=== PATIENT | male | born 1935 | race Caucasian/White ===

== ENCOUNTER 2017-03-01 14:01 | Inpatient (IN) | payer MEDICARE ==
[2017-03-01] MEDS ORDERED: Acetaminophen TAB* 325 MG PO ONE (15:41)
[2017-03-01 16:01] LABS: Hematocrit 33 % (42-52); Hemoglobin 10.8 g/dl (14.0-18.0); Mean Corpuscular HGB Conc 32 g/dl (31-36); Mean Corpuscular Hemoglobin 33 pg (27-31); Mean Corpuscular Volume 101 fL (80-94); Mean Platelet Volume 9 um3 (7.4-10.4); Red Blood Count 3.31 10^6/ul (4.0-5.4); Red Cell Distribution Width 16 % (10.5-15); White Blood Count 18.8 10^3/ul (3.5-10.8)
[2017-03-01 16:03] LABS: Albumin 3.1 g/dL (3.2-5.2); BUN/Creatinine Ratio 21.3 (8-20); Calcium 9.1 mg/dL (8.6-10.3); EGFR African American 24.6 (>60); EGFR Non-African American 19.1 (>60); Globulin 3.5 g/dL (2-4); Potassium 4.4 mmol/L (3.5-5.0); Total Bilirubin 0.9 mg/dL (0.2-1.0); Total Protein 6.6 g/dL (6.4-8.9)
[2017-03-01 16:08] LABS: Troponin I 4.52 ng/mL (<0.04)
[2017-03-01] MEDS ORDERED: cefTRIAXone VIAL(*) 1,000 MG in NS 0.9% 50 ML* 50 ML IVPB ONE (16:12)
[2017-03-01] MEDS ORDERED: Azithromycin IV(*) 500 MG in NS 0.9% 250 ML* 250 ML IVPB ONE (16:12)
--- NOTE | 2017-03-01 16:15 | RAD ---
INDICATION: Short of breath. Fever. COMPARISON: January 19, 2016 TECHNIQUE: An AP portable view obtained at 1552 hours is submitted. FINDINGS: Bones/Soft Tissues: There are no acute bony findings. Cardiomediastinal: The cardiac silhouette is enlarged with a mild interval increase in size. Lungs: Diffuse interstitial change consistent with interstitial edema. No focal consolidation.. Pleura: No significant effusions. Other: None IMPRESSION: MODERATE INTERSTITIAL CONGESTION, UNCHANGED.
--- NOTE | 2017-03-01 16:18 | ED ---
Darci Aparicio Benjamin, scribed for Georgette Carr MD on 03/01/17 at 1610 . HPI Febrile Illness - HPI Summary HPI Summary: 81yo male Pt c/o fever, chills, cough, SOB and weakness for 2 days. Pt went to his PCP Dr. Harrell office earlier today for his sickness and was subsequently sent to ED. Pt reports hx of CHF with chronic leg swelling, Afib with anticoagulation therapy, and couple of TIAs. No hx of PE. No urinary symptoms. No CP or SOB. Pt is not on O2 at home. - History of Current Complaint Chief Complaint: EDFever Time Seen by Provider: 03/01/17 15:11 Hx Obtained From: Patient Onset/Duration: Started Days Ago, Still Present Timing: Constant Initial Severity: Mild Current Severity: Mild Pain Intensity: 0 Pain Scale Used: 0-10 Numeric Associated Signs and Symptoms: Cough, Leg Swelling, SOB - Allergy/Home Medications Allergies/Adverse Reactions: Allergies Allergy/AdvReac Type Severity Reaction Status Date / Time Methotrexate AdvReac Intermediate Pneumonia Verified 08/06/13 13:10 Like Symptoms Codeine AdvReac Unknown Itching Verified 08/06/13 13:10 Home Medications: Home Medications Allopurinol TAB* [Zyloprim 100 MG TAB*] 200 mg PO DAILY 03/01/17 [History Confirmed 03/01/17] Metoprolol Tartrate TAB* [Lopressor TAB*] 12.5 tab PO BID 03/01/17 [History Confirmed 03/01/17] Omeprazole CAP* [Prilosec CAP* 20 MG] 20 mg PO DAILY 03/01/17 [History Confirmed 03/01/17] Polysaccharide Iron Complex [Ferrex 150] 150 mg PO BID 03/01/17 [History Confirmed 03/01/17] predniSONE TAB* [Deltasone TAB*] 4 mg PO DAILY 03/01/17 [History Confirmed 03/01] predniSONE TAB* [Deltasone TAB*] 10 mg PO DAILY 03/01/17 [History Confirmed 09/16] PMH/Surg Hx/FS Hx/Imm Hx Endocrine/Hematology History: Reports: Hx Thyroid Disease Cardiovascular History: Reports: Hx Coronary Artery Disease, Hx Hypercholesterolemia, Hx Hypertension, Other Cardiovascular Problems/Disorders - temporal arteritis Respiratory History: Reports: Hx Sleep Apnea - current CPAP user, compliant GI History: Reports: Hx Gastroesophageal Reflux Disease, Other GI Disorders - bowel resection, appendectomy History: Reports: Hx Benign Prostatic Hyperplasia Musculoskeletal History: Reports: Hx Arthritis - osteo, Hx Osteoporosis, Other Musculoskeletal History - bilateral hip replacement Sensory History: Reports: Hx Cataracts - bilateral, Hx Vision Problem - s/p TIA (left) vision loss, dbl vision Opthamlomology History: Reports: Hx Cataracts - bilateral, Hx Vision Problem - s /p TIA (left) vision loss, dbl vision Neurological History: Reports: Hx Transient Ischemic Attacks (TIA) - Surgical History Surgery Procedure, Year, and Place: 06/1998 [facility] [place]- (right) cataract. 03/2000 [facility] [place] - (left) cataract. (left) knee surgery. 07/2003 partial bowel resection. appendectomy. bilateral carotid endarterectomy. 12/2008 (left) hip arthroplasty. 11/2009 (right) hip ORIF & replacement Infectious Disease History: No Infectious Disease History: Denies: Traveled Outside the [place] in Last 30 Days - Social History Alcohol Use: None Substance Use Type: Reports: None Smoking Status (MU): Former Smoker Review of Systems Positive: Fever Eyes: Negative ENT: Negative Cardiovascular: Negative Positive: Shortness Of Breath, Cough Gastrointestinal: Negative Genitourinary: Negative Positive: Edema - leg, chronic Skin: Negative Neurological: Negative Psychological: Normal All Other Systems Reviewed And Are Negative: Yes Physical Exam Triage Information Reviewed: Yes Vital Signs On Initial Exam: Initial Vitals Temp Pulse Resp BP Pulse Ox 99.5 F 72 20 156/53 94 03/01/17 14:03/01/17 14:03/01/17 14:03/01/17 14:03/01/17 14:06 Vital Signs Reviewed: Yes Appearance: Positive: Well-Appearing, No Pain Distress, Well-Nourished Skin: Positive: Warm, Skin Color Reflects Adequate Perfusion, Dry Head/Face: Positive: Normal Head/Face Inspection Eyes: Positive: EOMI, VASQUEZ ENT: Positive: Normal ENT inspection Neck: Positive: Supple, Nontender Respiratory/Lung Sounds: Positive: Clear to Auscultation, Breath Sounds Present , Decreased Breath Sounds Cardiovascular: Positive: RRR Abdomen Description: Positive: Nontender, No Organomegaly, Soft Bowel Sounds: Positive: Present Musculoskeletal: Positive: Strength/ROM Intact, Edema Left - up to thigh, Edema Right - up to thigh Neurological: Positive: Sensory/Motor Intact, Alert, Oriented to Person Place, Time, CN Intact II-III Psychiatric: Positive: Affect/Mood Appropriate - Krystle Coma Scale Coma Scale Total: 15 Diagnostics - Vital Signs Vital Signs Temp Pulse Resp BP Pulse Ox 03/01/17 15:04 101.2 F 75 16 129/56 95 03/01/17 15:00 85 94 03/01/17 14:58 83 94 03/01/17 14:06 99.5 F 72 20 156/53 94 - Laboratory Lab Results: Lab Results 03/01/17 03/01/17 Range/Units 15:30 15:30 Sodium 134 (133-145) mmol/L Potassium 4.4 (3.5-5.0) mmol/L Chloride 103 (101-111) mmol/L Carbon Dioxide 23 (22-32) mmol/L Anion Gap 8 (2-11) mmol/L BUN 67 H (6-24) mg/dL Creatinine 3.14 H (0.67-1.17) mg/dL Est GFR ( Amer) 24.6 (>60) Est GFR (Non-Af Amer) 19.1 (>60) BUN/Creatinine Ratio 21.3 H (8-20) Glucose 146 H (70-100) mg/dL Lactic Acid 1.2 (0.5-2.0) mmol/L Calcium 9.1 (8.6-10.3) mg/dL Total Bilirubin 0.90 (0.2-1.0) mg/dL AST 76 H (13-39) U/L ALT 45 (7-52) U/L Alkaline Phosphatase 149 H (34-104) U/L Troponin I 4.52 H* (<0.04) ng/mL Total Protein 6.6 (6.4-8.9) g/dL Albumin 3.1 L (3.2-5.2) g/dL Globulin 3.5 (2-4) g/dL Albumin/Globulin Ratio 0.9 L (1-3) Result Diagrams: 03/01/17 15:30 03/01/17 15:30 Lab Statement: Any lab studies that have been ordered have been reviewed, and results considered in the medical decision making process. - EKG 1618. Cardiac Rate: Tachycardia - 113bpm EKG Rhythm: Atrial Fibrillation Ectopy: PVCs EKG Interpretation: poor R wave progressions, EKG Comparison: No Significant Change - 02/17/17. Course/Dx - Course Course Of Treatment: Reviewed pt's medications list and allergies. High blood pressure noted. Discussed with Dr. Lopez ([facility]) at 16:11 for a consult/ admission. pt without complain of cp but with elevated trop - Diagnoses Provider Diagnoses: Heart attack, Fever Discharge - Discharge Plan Condition: Stable Disposition: ADMITTED TO [facility] Referrals: Lit Saldana MD [Primary Care Provider] - The documentation as recorded by the Darci raines Benjamin accurately reflects the service I personally performed and the decisions made by me, Georgette Carr MD.
[2017-03-01 16:22] LABS: Urine Bacteria Absent (Absent); Urine Bilirubin Negative (Negative); Urine Glucose Negative (Negative); Urine Nitrite Negative (Negative)
[2017-03-01] MEDS ORDERED: NS 0.9% 50 ML* 50 ML ONE (16:25)
[2017-03-01] MEDS ORDERED: cefTRIAXone(*) 1 GM ADVAN ONE (16:29)
[2017-03-01] MEDS ORDERED: Ondansetron INJ* 2 MG/ML VIAL IV PRN (16:54)
[2017-03-01] MEDS ORDERED: Heparin DRIP 25,000 UNITS(*) 25,000 UNITS/500 ML BAG IVPB SCH (17:00)
[2017-03-01] MEDS ORDERED: Heparin VIAL(*) 5000 UNITS/ML VIAL (FIVE THOUSAND) IV SCH (17:00)
[2017-03-01] MEDS: cefTRIAXone VIAL(*) 1,000 MG in NS 0.9% 50 ML* 50 ML IVPB SCH (17:10)
[2017-03-01] MEDS ORDERED: NS 0.9% 1000 ML* 1,000 ML IV ONE (17:19)
[2017-03-01 17:43] LABS: Troponin I 5.09 ng/mL (<0.04)
[2017-03-01] MEDS: Sevelamer TAB* 800 MG PO SCH (18:20)
[2017-03-01 18:43] LABS: C Reactive Protein 227.24 mg/L (< 5.00)
[2017-03-01 20:08] LABS: Erythrocyte Sed Rate 113 mm/Hr (0-40)
[2017-03-01] MEDS: Hydrocortisone INJ* 100 MG VIAL IV SCH (20:16)
[2017-03-01] MEDS: NS 0.9% 1000 ML* 1,000 ML IV SCH (20:17)
[2017-03-01] MEDS ORDERED: Metoprolol Tartrate TAB* 25 MG PO SCH (21:00)
[2017-03-02] MEDS ORDERED: Nystatin TOP POWDER* 15 GM BTL TOPICAL SCH (01:30)
--- NOTE | 2017-03-02 02:03 | HP ---
CC: Dr. Saldana* HISTORY AND PHYSICAL: DATE OF ADMISSION: 03/01/17 PRIMARY ARE PROVIDER: Dr. Saldana. ATTENDING PHYSICIAN WHILE IN THE HOSPITAL: Deanne Lopez DO * (report dictated by Blake Campos NP) CHIEF COMPLAINT: 1. Cough. 2. Shortness of breath. 3. Fever. 4. Weakness. HISTORY OF PRESENT ILLNESS: Mr. Pederson is an 81-year-old male patient who last night says he slipped and slid out the edge of his bed, was on the floor for about 3 in the morning until 7 in the morning. He was able to call the ambulance and they came over. They suggested he come to the ER, but he refused and he was assisted back into his bed. He throughout the day was feeling weak. He was having chills. He just was not feeling good. He called his primary. He got an appointment with Dr. Saldana. Dr. Saldana saw him and felt that he needed to be evaluated in the ER because it was apparently noted he was febrile. He denies having any chest pain. He says he has been more short of breath. He has been coughing, it has been a dry cough. He denies any chest pain. No nausea, vomiting or abdominal discomfort or any dysuria. Interesting enough, when he came in, it was noted that he had a white count of 18,000 and a fever of 101.2. His troponin was elevated. He appeared to be in new-onset AFib and the hospitalist service was asked to evaluate for admission because there was concern for sepsis. Again, he denied having any ear discharge. There is no rhinorrhea. He does admit to having a cough, some shortness of breath, but no chest pain. PAST MEDICAL HISTORY: Significant for: 1. Hypothyroidism. 2. Hypertension. 3. Temporal arteritis. 4. SRAVAN. 5. Arthritis. 6. Hyperlipidemia. 7. TIA x2. 8. CAD. 9. Second-degree AV block. 10. CKD. 11. Peripheral vascular disease. PAST SURGICAL HISTORY: 1. He had had a right and left total hip replacement. 2. Carotid endarterectomy. 3. Appendectomy. 4. Bowel resection. 5. Left knee surgery. HOME MEDICATIONS: Include: 1. He is on prednisone 9 mg p.o. daily. 2. Norvasc 5 mg daily. 3. Flomax 0.4 mg daily. 4. Zocor 40 mg daily. 5. Renvela 1600 mg p.o. t.i.d. with meals. 6. Polysaccharide iron complex 150 mg p.o. b.i.d. 7. Prilosec 20 mg a day. 8. [place] 3 fatty acids 2000 mg p.o. daily. 9. Multivitamin 1 tablet daily. 10. Lopressor 12.5 mg p.o. b.i.d. 11. Lisinopril one tab a day. 12. Synthroid 50 mcg daily. 13. Lasix 40 mg a day. 14. Aspirin 81 mg a day. 15. Allopurinol 200 mg p.o. daily. 16. Tekturna 150 mg p.o. daily. ALLERGIES TO MEDICATIONS: Include METHOTREXATE and CODEINE. FAMILY HISTORY: His mother had diabetes. Father had a stroke. SOCIAL HISTORY: He is a former smoker, he quit in 1992. He does not drink. His surrogate decision maker is his daughter, Ashley. REVIEW OF SYSTEMS: There is a documented fever. He denied any significant weight change. There was no double vision, no ear discharge. He denied having any rhinorrhea. There was no sore throat. No thyroid enlargement. Denied having any chest pain. There was no orthopnea. There is shortness of breath with dyspnea on exertion. There is no abdominal pain. There is no nausea. There is no vomiting. There is no dysuria. There was no frequency. No seizure. No loss of consciousness, no pruritus and no skin ulcerations. Review of 14 systems completed, all others negative. PHYSICAL EXAMINATION GENERAL: At this time, Mr. Pederson is an 81-year-old male patient. He is sitting on the ER stretcher. He does not appear to be in any acute distress. He is awake and he is alert. VITAL SIGNS: Blood pressure of 112/53, pulse 69, respirations 22, O2 sat 96%, temperature of 101.2. HEENT: Head is atraumatic, normocephalic. Eyes: EOMs are intact. Sclerae anicteric. Throat: Oral mucosa appears to be dry. No oropharyngeal erythema. NECK: Supple. LUNGS: He did have crackles on the right side. He had equal diaphragmatic expansion. HEART: Sounds S1, S2. Irregularly irregular rate. No murmurs, rubs, or gallops. ABDOMEN: Soft. It was flat. Nontender. Bowel sounds were present. EXTREMITIES: Pulses were 2+ throughout. He had +4 pitting edema bilaterally. He had 5/5 strength. NEUROLOGIC: He is awake. He is alert. He is oriented x3. His tongue is midline. Chicken Cleaner were equal. He had no gross focal deficits. His skin was intact. He did have some abrasions to his knees. LABORATORY DATA/DIAGNOSTIC STUDIES: Today revealed WBC of 18.8, RBC of 3.31, hemoglobin of 10.8, hematocrit of 33, platelet count of 342, INR 1.29, PTT of 26.3. Sodium 134, potassium 4.4, chloride 103, bicarb 23. BUN 67, creatinine 3.14, glucose 146, lactic 1.2, calcium 9.1, total bili 0.9, AST 76, ALT 45, alk phos 149. His troponin was 4.52. He did have an albumin of 3.1. Urine was 1+ protein and present squamous epithelial cells. He did have an EKG obtained today, which revealed an atrial fibrillation with multiple PVCs in couplets. He had no ST elevations at this point noted and no T -wave inversion. I reviewed to his previous EKG. He has had the couplets and the PVCs in the past, but he was not in AFib previously. He appeared to be in a sinus rhythm. The AFib does appear to be new. He did have a chest x-ray obtained today, which showed in my opinion concern for possible pneumonia particularly on the right side. Radiology read as moderate interstitial congestion, unchanged. Old medical records were reviewed. ASSESSMENT AND PLAN: Mr. Pederson is an 81-year-old male patient coming into the ER today with complaints of weakness, fall, not feeling well, cough, shortness of breath. He will be admitted under inpatient status for: 1. Sepsis: The source of this sepsis is probably from his lungs. I am going to put him on ceftriaxone, azithromycin. I am going to go ahead and give him normal saline at 125 an hour. I will bolus him 1 L. We will try to get Legionella antigen and Strep pneumo antigen, we will go head and place a Angeles and monitor his urine output closely and I will place him in the ICU. 2. Elevated troponin: This is markedly elevated in the setting of sepsis. It is most likely demand ischemia. His EKG is changed with atrial fibrillation, which is probably secondary to the infection as well and sepsis and demand. My plan is to go ahead and check an echo, cycle his troponins, place him on a heparin drip and monitor him. He is not having any chest pain. Currently, he does take an aspirin and he is on a beta-veronique and a statin. We will continue these medications. He is actively infected right now and is septic, so he would not be a candidate for cath. I did order an echo. If they continue to elevate, I will consider Cardiology consult. 3. Hypothyroidism: Continue Synthroid. 4. Atrial fibrillation: This appears to be new on the patient. I am going to put him on a heparin drip. It is probably related to the acute illness, but he will probably need to be on anticoagulation as his CHADS-VASc score is high. 5. Hypertension: Hold his medications such as beta-veronique. 6. Temporal arteritis: I am going to put him on stress dosed steroids as he was on prednisone. 7. Obstructive sleep apnea: Did order a CPAP. 8. Arthritis: Continue p.r.n. Tylenol. 9. Hyperlipidemia: Continue statin therapy. 10. History of transient ischemic attack: Continue with secondary prevention. 11. History of coronary artery disease: Continue him on an aspirin, statin, beta- veronique. 12. History of second-degree AV block: He has been on telemetry, we will monitor. 13. Chronic kidney disease with acute renal failure. This is probably related to prerenal, but he may have a component of acute tubular necrosis secondary to the sepsis. I will go ahead and hydrate him and send off a FENa. In addition to this, we will go ahead and hydrate him and place a Angeles and monitor his urine output. 14. Peripheral vascular disease: Continue his aspirin and statin. 15. DVT prophylaxis: He will be placed on heparin drip. 16. Code status: He is a full code. 17. Fluids, electrolytes, and nutrition: He can have a heart healthy diet. TIME SPENT: Time spent on the admission was approximately 60 minutes. Greater than half the time was spent [id number] with the patient obtaining my history and physical; other half the time spent going over plan of care with the patient and implementing plan of care. I did discuss the plan of care with my attending, Dr. Lopez, she is in agreement. BLAKE CAMPOS, TRAINING AND DEVELOPMENT OFFICER [id number]/[facility] #: [id number] [facility]
[2017-03-02] MEDS ORDERED: Hydrocortisone INJ* 100 MG VIAL IV SCH (04:00)
[2017-03-02] MEDS: Nystatin TOP POWDER* 15 GM BTL TOPICAL SCH ×3 (04:20→20:12)
[2017-03-02] MEDS: NS 0.9% 1000 ML* 1,000 ML IV SCH (04:35)
[2017-03-02] MEDS: Levothyroxine TAB* 50 MCG TAB PO SCH (05:45)
[2017-03-02 06:00] LABS: Hematocrit 31 % (42-52); Hemoglobin 10.1 g/dl (14.0-18.0); Mean Corpuscular HGB Conc 33 g/dl (31-36); Mean Corpuscular Hemoglobin 33 pg (27-31); Mean Corpuscular Volume 101 fL (80-94); Mean Platelet Volume 8 um3 (7.4-10.4); Red Blood Count 3.08 10^6/ul (4.0-5.4); Red Cell Distribution Width 16 % (10.5-15)
[2017-03-02 06:14] LABS: BUN/Creatinine Ratio 22.3 (8-20); Calcium 8.5 mg/dL (8.6-10.3); EGFR African American 25.9 (>60); EGFR Non-African American 20.1 (>60); Potassium 4.3 mmol/L (3.5-5.0)
[2017-03-02] MEDS: Hydrocortisone INJ* 100 MG VIAL IV SCH (06:20)
[2017-03-02] MEDS: Tamsulosin CAP* 0.4 MG PO SCH (08:11)
[2017-03-02] MEDS: Atorvastatin* 20 MG TAB PO SCH (08:11)
[2017-03-02] MEDS: Aspirin EC Low Dose* 81 MG TAB.EC PO SCH (08:11)
[2017-03-02] MEDS: Omeprazole CAP* 20 MG PO SCH (08:11)
[2017-03-02] MEDS: Sevelamer TAB* 800 MG PO SCH (08:16)
[2017-03-02] MEDS ORDERED: predniSONE TAB* 10 MG PO ONE (09:25)
--- NOTE | 2017-03-02 09:55 | PN ---
Subjective Date of Service: 03/02/17 Interval History: Pt feels well, sitting in a chair, reading an newspaper, off 02. stated that he got ill suddenly yesterday with SOB and fever . Was too weak to get up from bed and slid to the floor, than called 911 and insisted to be brought to his PCP's office. there he was noted to have Tepm of 102 and was directed to ED. Last night HR noted to be in the 30's and beta blockers were discontinued. He lives alone, but his son in moving to [facility] house to help him today. ambulates with a cane Objective Active Medications: Acetaminophen (Tylenol Tab*) 650 mg PO Q4H PRN PRN Reason: FEVER/PAIN Aspirin (Aspirin Ec Low Dose*) 81 mg PO DAILY [facility] Last Admin: 03/02/17 08:11 Dose: 81 mg Atorvastatin Calcium (Lipitor*) 20 mg PO DAILY [facility] Last Admin: 03/02/17 08:11 Dose: 20 mg Ceftriaxone Sodium 1,000 mg/ (Sodium Chloride) 50 mls @ 200 mls/hr IVPB Q24H [facility] Last Admin: 03/01/17 17:10 Dose: Not Given Azithromycin 500 mg/ Sodium (Chloride) 250 mls @ 250 mls/hr IVPB Q24H [facility] Levothyroxine Sodium (Synthroid Tab*) 50 mcg PO DAILY@0600 [facility] Last Admin: 03/02/17 05:45 Dose: 50 mcg Nystatin (Nystatin Top Powder*) 1 applic TOPICAL Q8HR [facility] Last Admin: 03/02/17 04:20 Dose: 1 powder Omeprazole (Prilosec Cap*) 20 mg PO DAILY@0730 [facility] Last Admin: 03/02/17 08:11 Dose: 20 mg Ondansetron HCl (Zofran Inj*) 4 mg IV Q6H PRN PRN Reason: NAUSEA Prednisone (Deltasone Tab*) 40 mg PO DAILY [facility] Tamsulosin HCl (Flomax Cap*) 0.4 mg PO DAILY [facility] Last Admin: 03/02/17 08:11 Dose: 0.4 mg Vital Signs 03/01/17 03/01/17 03/01/17 17:00 18:00 18:26 Temperature Pulse Rate Respiratory 22 26 23 Rate Blood Pressure 99/52 (mmHg) O2 Sat by Pulse Oximetry 08/0203/01/17 03/01/17 18:32 18:45 19:00 Temperature 98.2 F Pulse Rate 64 66 54 Respiratory 15 24 22 Rate Blood Pressure 110/51 104/52 109/51 (mmHg) O2 Sat by Pulse 95 94 95 Oximetry 03/01/17 03/01/17 03/01/17 19:30 19:34 19:45 Temperature 98.4 F Pulse Rate 51 53 Respiratory 23 24 Rate Blood Pressure 99/76 (mmHg) O2 Sat by Pulse 97 95 Oximetry 03/01/17 03/01/17 03/01/17 20:00 20:30 20:54 Temperature 98.2 F Pulse Rate 47 46 Respiratory 24 21 Rate Blood Pressure 127/35 128/39 (mmHg) O2 Sat by Pulse 93 93 Oximetry 03/01/17 03/01/17 03/01/17 21:00 21:30 22:00 Temperature Pulse Rate 43 48 44 Respiratory 22 24 25 Rate Blood Pressure 119/44 114/49 113/40 (mmHg) O2 Sat by Pulse 95 95 96 Oximetry 03/01/17 03/01/17 03/01/17 22:30 23:00 23:11 Temperature Pulse Rate 43 43 43 Respiratory 28 26 24 Rate Blood Pressure 93/36 101/35 104/40 (mmHg) O2 Sat by Pulse 93 94 91 Oximetry 03/01/17 03/01/17 03/02/17 23:14 23:30 00:00 Temperature 98.2 F Pulse Rate 42 41 42 Respiratory 25 24 26 Rate Blood Pressure 105/35 (mmHg) O2 Sat by Pulse 95 96 96 Oximetry 03/02/17 03/02/17 03/02/17 00:01 00:30 01:00 Temperature Pulse Rate 44 47 41 Respiratory 25 16 24 Rate Blood Pressure 102/37 152/61 124/45 (mmHg) O2 Sat by Pulse 96 98 96 Oximetry 03/02/17 03/02/17 03/02/17 01:30 01:43 02:00 Temperature Pulse Rate 42 41 Respiratory 26 24 Rate Blood Pressure 117/46 116/47 (mmHg) O2 Sat by Pulse 95 95 96 Oximetry 03/02/17 03/02/17 03/02/17 02:30 03:00 03:30 Temperature Pulse Rate 40 38 39 Respiratory 23 22 24 Rate Blood Pressure 121/44 122/45 123/43 (mmHg) O2 Sat by Pulse 96 96 96 Oximetry 03/02/17 03/02/17 03/02/17 04:00 04:30 05:00 Temperature 96.6 F Pulse Rate 54 45 39 Respiratory 22 16 14 Rate Blood Pressure 153/59 148/47 100/44 (mmHg) O2 Sat by Pulse 97 100 98 Oximetry 03/02/17 03/02/17 03/02/17 05:30 06:00 06:30 Temperature Pulse Rate 38 58 43 Respiratory 22 21 21 Rate Blood Pressure 99/40 136/46 126/45 (mmHg) O2 Sat by Pulse 97 100 99 Oximetry 03/02/17 03/02/17 03/02/17 07:00 07:30 07:47 Temperature Pulse Rate 38 37 Respiratory 21 21 Rate Blood Pressure 117/39 123/43 (mmHg) O2 Sat by Pulse 96 98 99 Oximetry 03/02/17 03/02/17 03/02/17 07:55 08:00 08:22 Temperature 98.5 F Pulse Rate 46 Respiratory 20 20 20 Rate Blood Pressure 151/49 (mmHg) O2 Sat by Pulse 98 Oximetry 03/02/17 03/02/17 09:00 09:35 Temperature Pulse Rate 50 Respiratory 21 22 Rate Blood Pressure 154/56 (mmHg) O2 Sat by Pulse 98 98 Oximetry Oxygen Devices in Use Now: None Appearance: 81 yo M in nAD, aAOx3 Eyes: No Scleral Icterus, PERRLA Ears/Nose/Mouth/Throat: NL Teeth, Lips, Gums, Mucous Membranes Moist Neck: NL Appearance and Movements; NL JVP, Trachea Midline Respiratory: Symmetrical Chest Expansion and Respiratory Effort, - - crackles at b/l bases Cardiovascular: NL Sounds; No Murmurs; No JVD, - - irregular Abdominal: NL Sounds; No Tenderness; No Distention, No Hepatosplenomegaly Lymphatic: No Cervical Adenopathy Extremities: No Clubbing, Cyanosis, - - +2 pitting edema b/l -chronic as per pt Skin: No Nodules or Sclerosis, - - superficial abrasion on r knee at 2 cm in diam Neurological: Alert and Oriented x 3, NL Muscle Strength and Tone Result Diagrams: 03/02/17 05:50 03/02/17 05:50 Additional Lab and Data: Lab Results 03/01/17 03/01/17 Range/Units 15:30 15:30 Sodium 134 (133-145) mmol/L Potassium 4.4 (3.5-5.0) mmol/L Chloride 103 (101-111) mmol/L Carbon Dioxide 23 (22-32) mmol/L Anion Gap 8 (2-11) mmol/L BUN 67 H (6-24) mg/dL Creatinine 3.14 H (0.67-1.17) mg/dL Est GFR ( Amer) 24.6 (>60) Est GFR (Non-Af Amer) 19.1 (>60) BUN/Creatinine Ratio 21.3 H (8-20) Glucose 146 H (70-100) mg/dL Lactic Acid 1.2 (0.5-2.0) mmol/L Calcium 9.1 (8.6-10.3) mg/dL Total Bilirubin 0.90 (0.2-1.0) mg/dL AST 76 H (13-39) U/L ALT 45 (7-52) U/L Alkaline Phosphatase 149 H (34-104) U/L Troponin I 4.52 H* (<0.04) ng/mL Total Protein 6.6 (6.4-8.9) g/dL Albumin 3.1 L (3.2-5.2) g/dL Globulin 3.5 (2-4) g/dL Albumin/Globulin Ratio 0.9 L (1-3) Microbiology and Other Data: Microbiology 03/01/17 18:46 Nasal Screen MRSA (PCR)(CHERYL) - Final Nasal Mrsa Negative 03/01/17 17:05 Legionella Urinary Antigen - Final Urine Negative Legionella Streptococcus pneumoniae Ag Screen - Final Negative S. pneumo Antigen Assess/Plan/Problems-Billing Assessment: 81 yo M with h/o CAD, PVD, R subclavian stenosis, CKD 4, hypothyroidism, II degree AV block type 1, temporal arteritis( on chronic prednisone) presented with fever, fall, gen weakness, trop of 5. - Patient Problems (1) Sepsis Comment: likely community acquired pneumonia afebrile since admission, leukocytosis improving. cont Ceftriaxone/Azithromycin Legionella and strep pneumo antigens neg Lyme serology ordered Blood cx pending (2) Atrial fibrillation Comment: new, HR in 60's due to arrythmia, elev troponin and sepsis Lyme is on differential. Consulted Dr. Yassine Shaver pending Holding beta blockers due to bradycardia Heparin gtt for anticoagulation for now (3) Demand ischemia Comment: troponin of 5, but pt had no CP Has CKD stage 4 that decreases troponin clearance suspect demand ischemia Check Echo cont ASA, cont heparin gtt (4) Bradycardia Comment: beta blockers stopped HR in 50-60's today check TSH (5) CKD (chronic kidney disease) stage 4, GFR 15-29 ml/min Comment: Creat at 2.6-2.8 at baseline Creat improving, ACEI held at admission Lasix held FeNa at 1.9 ( but not reliable, since pt was on Lasix at admisssion) (6) Chronic systolic (congestive) heart failure Comment: EF 45% in 2016 Lasix held at admission Will stop IVF Restart home Lasix in aM cont daily weights (7) Urinary retention Comment: Angeles was placed at admission due to residual >600 ml Possibly d/c Angeles tomorrow. Increase mobilty today (8) Hypothyroidism Comment: cont home synthroid, checking TSH (9) Subclavian arterial stenosis Comment: on R will check BP on left arm (10) Temporal arteritis Comment: on chronic prednisone will start tapering doen stress does steroids (11) DVT prophylaxis Comment: heparin gtt Status and Disposition: inpatient
[2017-03-02 10:26] LABS: Magnesium 2.3 mg/dL (1.9-2.7)
[2017-03-02 11:12] LABS: TSH (Thyroid Stimulating Horm) 2.04 mcIU/mL (0.34-5.60)
[2017-03-02] MEDS ORDERED: Heparin VIAL(*) 5000 UNITS/ML VIAL (FIVE THOUSAND) SUBCUT SCH (14:00)
--- NOTE | 2017-03-02 15:50 | ECHO ---
Patient: RAMON NGUYEN [facility] Rec#: [id number] : 1935 Date: 03/02/2017 Age: 81y Height: 157.48 cm / 62.0 in Weight: 99.79 kg / 219.9 lbs Sex: M BSA: 1.99 Room#: ICU 5 Admit Date#: 03/01/2017 Type: Inpatient Referring: Blake Campos NP Reading: Pietro Metzger MD Hvac Sales Engineer: Emy Soriano RDCS,RDMS CC: Lit Saldana MD Transthoracic Echocardiogram Indication: SOB BP: 136/46 HR: 52 Rhythm: Bradycardia Findings History: CAD, 2nd degree block, HTN, HLD, TIA, sleep apnea, carotid endarterectomy Technical Comments: The study quality is good. Completed 0830 Left Ventricle: The left ventricular chamber size is mildly dilated. Mild concentric left ventricular hypertrophy is observed. There is global hypokinesis of the left ventricle with minor regional variation. The estimated ejection fraction is 30-35%. Abnormal left ventricular diastolic function is observed. The left ventricular diastolic filling pattern is consistent with pseudonormalization. The basal anteroseptal, basal anterior, basal anterolateral, basal inferoseptal, mid anteroseptal, mid anterior, mid anterolateral, mid inferolateral, mid inferoseptal, apical septal, apical anterior, apical lateral, and apical inferior wall segments are hypokinetic (score 2). The basal inferior, and mid inferior wall segments are akinetic (score 3). Overall wallmotion score index is 2.06 Left Atrium: The left atrium is mild to moderately dilated. Right Ventricle: The right ventricular cavity size is normal. The right ventricular global systolic function is mildly reduced. Right Atrium: The right atrium is mildly dilated. Aortic Valve: The aortic valve is trileaflet. The aortic valve leaflets are moderately thickened. Systolic excursion of the aortic valve cusps is reduced. There is trace to mild aortic regurgitation. There is moderate aortic stenosis.by 2d. moderate to severe by continuity. Consider low gradient aortic stenosis. DI: .33 The mean gradient of the aortic valve is 12 mmHg. The aortic valve area, by peak velocities, is calculated at 0.9 cm2. The highest aortic valve velocity was obtained with the standard probe from the A5C view. Mitral Valve: Mild mitral annular calcification present. There is mild to moderate mitral regurgitation. There is no evidence of mitral stenosis. Tricuspid Valve: The tricuspid valve leaflets are normal. There is mild tricuspid regurgitation. There is evidence of mild pulmonary hypertension. Pulmonic Valve: The pulmonic valve appears normal. There is a trace pulmonic regurgitation. Pericardium: A trivial pericardial effusion is visualized. Aorta: The aortic root appears normal. There is no dilatation of the aortic arch. Pulmonary Artery: The main pulmonary artery is not well visualized. Venous: The inferior vena cava is dilated. There is less than 50% respiratory change in the inferior vena cava dimension. Conclusions The left ventricular chamber size is mildly dilated. Mild concentric left ventricular hypertrophy is observed. There is global hypokinesis of the left ventricle with minor regional variation. The estimated ejection fraction is 30-35%. The left ventricular diastolic filling pattern is consistent with pseudonormalization. The left atrium is mild to moderately dilated. The right ventricular global systolic function is mildly reduced. The right atrium is mildly dilated. Systolic excursion of the aortic valve cusps is reduced. There is trace to mild aortic regurgitation. There is moderate aortic stenosis.by 2d; moderate to severe by continuity. Consider low gradient aortic stenosis. DI: .33 There is mild to moderate mitral regurgitation. There is mild tricuspid regurgitation. There is evidence of mild pulmonary hypertension. Interval decrease in EF from 40-45% in 10/2015 and interval mild increase in aortic stenosis. Measurements Name Value Normal Range RVIDd (AP) 2D 3.2 cm (0.9 - 2.6) RVDdMajor (2D) 3.7 cm (2.2 - 4.4) RAd ISD 4CH 5.2 cm (3.4 - 4.9) RA (A4C)W 5.2 cm (2.9 - 4.6) IVSd (2D) 1.3 cm (0.6 - 1) LVPWd (2D) 1.2 cm (0.6 - 1) LVIDd (2D) 5.5 cm (3.6 - 5.4) LVIDs (2D) 4.2 cm - LV FS (2D) 23 % (25 - 45) Aortic Annulus 2 cm (1.4 - 2.6) Ao root diameter (2D) 2.8 cm (2.1 - 3.5) Ascending Ao 2.8 cm (2.1 - 3.4) Aortic arch 2.9 cm (1.8 - 3.4) LA dimension (AP) 2D 4.6 cm (2.3 - 3.8) LAd ISD 4CH 5.3 cm (2.9 - 5.3) LA ISD 4CH W 4.8 cm (2.5 - 4.5) Name Value Normal Range LA ESV SP 4CH (A/L) 84.05 ml - LA ESV SP 2CH (A/L) 83.48 ml - LA ESV BP (A/L) 84.48 ml - LA ESV BP (A/L) index 42.5 ml/m2 - LA ESV SP 4CH (MOD) 78.75 ml - LA ESV SP 2CH (MOD) 76.39 ml - Name Value Normal Range MV E-wave Vmax 1 m/sec - MV deceleration time 208 msec - MV A-wave Vmax 0.3 m/sec - MV E:A ratio 3.3 ratio - P. vein S-wave Vmax 0.3 m/sec - P. vein D-wave Vmax 0.8 m/sec - P. vein S:D Vmax ratio 0.4 ratio - LV septal e' Vmax 0.05 m/sec - LV lateral e' Vmax 0.05 m/sec - LV E:e' septal ratio 20 ratio - LV E:e' lateral ratio 20 ratio - Name Value Normal Range AV Vmax 2.4 m/sec - AV VTI 62.1 cm - AV peak gradient 23 mmHg - AV mean gradient 12 mmHg - LVOT diameter 2 cm - LVOT Vmax 0.7 m/sec - LVOT VTI 17.8 cm - LVOT peak gradient 2 mmHg - LVOT mean gradient 1 mmHg - DOI (VTI) 0.3 ratio - SV LVOT 56.45 ml - ROSALBA (continuity Vmax) 0.9 cm2 - ROSALBA (continuity VTI) 0.9 cm2 - AR PHT 860.93 msec - AR peak gradient 32.72 mmHg - Name Value Normal Range MV Vmax 1.2 m/sec - MV VTI 35.2 cm - MV peak gradient 6 mmHg - MV mean gradient 0.9 mmHg - MV PHT 59 msec - MR Vmax 4.3 m/sec - MR VTI 187 cm - MR flow (PISA) 18.5 ml/sec - MR ERO 4 cm2 - MR PISA radius 0.3 cm - MR alias Vmax 35 cm/sec - MVA (PHT) 3.7 cm2 - MVA (continuity VTI) 1.6 cm2 - Name Value Normal Range TR Vmax 2.8 m/sec - TR peak gradient 31 mmHg - RAP 8 mmHg - RVSP 39 mmHg - IVC diameter 2.6 cm - Name Value Normal Range PV Vmax 0.7 m/sec - PV peak gradient 2 mmHg - Wallmotion BAS Hypokinetic BA Hypokinetic BAL Hypokinetic TACOS Normal BI Akinetic BIS Hypokinetic MAS Hypokinetic MA Hypokinetic MAL Hypokinetic MIL Hypokinetic NH Akinetic MIS Hypokinetic Hypokinetic AA Hypokinetic AL Hypokinetic AI Hypokinetic APEX Hypokinetic
[2017-03-02] MEDS: cefTRIAXone VIAL(*) 1,000 MG in NS 0.9% 50 ML* 50 ML IVPB SCH (16:31)
[2017-03-02] MEDS: Azithromycin IV(*) 500 MG in NS 0.9% 250 ML* 250 ML IVPB SCH (16:39)
[2017-03-02] MEDS: Heparin DRIP 25,000 UNITS(*) 25,000 UNITS/500 ML BAG IV SCH (20:11)
[2017-03-02] MEDS: Heparin VIAL(*) 5000 UNITS/ML VIAL (FIVE THOUSAND) IV SCH (21:22)
--- NOTE | 2017-03-03 00:39 | CONS ---
CC: Dr. Saldana; Dr. Landeros * CONSULTATION REPORT: DATE OF CONSULTATION: 03/02/17 REASON FOR CONSULTATION: Non-ST elevation OH, bradycardia and AFib. HISTORY OF PRESENT ILLNESS: This is an 81-year-old gentleman with a history of coronary artery disease and peripheral vascular disease. He also had carotid endarterectomies. He has a stage 4 renal insufficiency and followed by Dr. Giron. He was in his usual state of health until he said the last 3 months, he has had chronic peripheral edema, dependent edema. Over the last 3 months, he states it does not seem to resolve, but is usually in the morning. In addition , he went on a long car ride to [place] and returned home, he said he was tired. He slipped on the morning of 03/01/17. He slipped off the edge of his bed and was on the floor from 3 in the morning to 7 in the morning, called the ambulance, and they suggested that he go to the ER, but he refused. He was feeling weak throughout the day and having chills. He called his primary and was sent to the emergency room. He has had a nonproductive cough, but he had a leukocytosis and new-onset AFib and was admitted. Chest x-ray, possible pneumonia on the right side and moderate interstitial congestion unchanged. His white count was 18.8, troponin was 4.52 and potassium 4.4, creatinine 3.14. It was felt that he had pneumonia, he was started on ceftriaxone and azithromycin. He reports that he is feeling better today, but has been noted to have AFib with bradycardia down into the 38 beats per minute range. He denies any syncope or near syncope. No orthopnea or PND. He states that he lives in his own house and is able to walk up to 6 steps into the house without a problem. He also does his own shopping and is able to walk around the supermarket normally. He had 2 TIAs in the remote past, but also had carotid endarterectomies after that. He also has a history of right subclavian stenosis. PAST MEDICAL HISTORY: Includes obesity, hypertension, coronary artery disease. He had a catheterization in June 2003, which revealed a distal 20% left main inferobasilar hypokinesis, mild disease at the proximal LAD and left circumflex, occluded RCA with faint left to right collaterals. His echo from October 2015 revealed mildly reduced LV function, EF of 45%, inferior posterior hypokinesis, moderate , mean gradient of 14, mild AI, mild to moderate MR and TR, moderate pulmonary hypertension and nuclear stress test from November 2015 revealed no evidence of ischemia, there was a small inferior infarction, mildly reduced EF of 42%. His other past medical history includes hypertension, tobacco use discontinued in the , sleep apnea, hyperlipidemia, chronic kidney disease, AV block, coronary artery disease, giant cell arteritis, TIAs in the past, gastroesophageal reflux, osteoarthritis, and diverticulitis. PAST SURGICAL HISTORY: His past surgeries include carotid endarterectomy on the left, carotid endarterectomy on the right, appendectomy, sigmoid stricture removed by Dr. Carlton, hip replacement bilaterally due to osteoarthritis, and the right one was replaced in November 2009, bilateral cataracts, total knee replacement on the left. MEDICATIONS AT HOME: Include: 1. Prednisone. 2. Metoprolol 12.5 mg b.i.d. of tartrate. 3. Amlodipine 5 mg a day. 4. Simvastatin 40 mg a day. 5. [place] 3 fatty acids 2000 mg a day. 6. Multivitamin and aspirin low dose. 7. Lisinopril 20 mg a day. 8. Levothyroxine 50 mcg a day. 9. Tamsulosin 0.4 mg a day. 10. Omeprazole 20 mg a day. 11. Allopurinol 200 mg a day. 12. Polysaccharide 150 mg b.i.d. INPATIENT MEDICATIONS: As an inpatient, he is on: 1. Acetaminophen. 2. Aspirin. 3. Atorvastatin 20 mg a day. 4. Azithromycin 500 mg q.24. 5. Ceftriaxone 1 g q.24. 6. Furosemide 40 mg a day. 7. Levothyroxine 50 mcg a day. 8. Nystatin. 9. Omeprazole. 10. Zofran 4 mg IV q.4. 11. Prednisone 40 mg a day. 12. Tamsulosin 0.4 mg a day. ALLERGIES: Include METHOTREXATE and CODEINE. SOCIAL HISTORY: He is . Has 4 adult children and several grandchildren. He drinks 2 cups of caffeinated coffee a day, denies alcohol use. 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 Sister of cancer. Father of CVA at 52. Mother at 60 with diabetes. REVIEW OF SYSTEMS: Review of systems x10 was negative except as above. PHYSICAL EXAMINATION: On physical examination, he is a well-developed obese gentleman, in no apparent distress. Heart rate is 67 and irregular. Blood pressure 132/57 with O2 sats of 97% on room air. No significant JVD. Carotids are 2+ with transmitted murmurs or bruits bilaterally. Cardiac Exam: S1, S2 with a 2/6 systolic ejection murmur at the base and a 2/6 holosystolic murmur at the apex. Chest was clear. Abdominal Exam: Bowel sounds present, nontender , obese. Femoral pulses intact without bruits. There is 2 to 3+ edema in the lower extremities. Distal pulses, dorsalis pedis were palpable, but difficult to assess due to the obesity. Motor strength was 5/5 bilaterally. Deep tendon reflexes are 2/4, alert and oriented x3. DIAGNOSTIC STUDIES/LAB DATA: EKG from 03/02/17 revealed AFib with a slow ventricular response, poor R-wave progression, nonspecific ST-T changes and he had EKG the day before and all the segments showed AFib with multiple PVCs and couplets. His EKG from December 2015 revealed sinus rhythm with frequent PVCs, poor R- wave progression, and nonspecific ST-T changes. He had a Holter monitor performed in December 2015, which revealed sinus rhythm with frequent PVCs, few runs of 4 beats of ventricular ectopy, no sustained arrhythmias. His echocardiogram from today revealed EF of 30% to 35%, abnormal diastolic function, multiple segmental wall motion abnormalities that were pronounced. They were in the basal inferior, mid inferior segments, which were akinetic. The aortic valve leaflets were moderately thickened and restricted. There was trace to mild AI, moderate aortic stenosis by 2D, moderate to severe by continuity, consider low gradient aortic stenosis. The DI was 0.33 aortic valve area. The mean gradient was 12 mmHg, calculated valve area is 0.9 cm2. There is mild to moderate MR, mild TR, moderate pulmonary hypertension, mild concentric LVH. An interval decrease in EF compared to 40% to 45% in October 2015. His labs include a white count today of 15 down from 18.8, hemoglobin of 10.1, hematocrit of 31, platelet count of 297, sed rate elevated at 113. Sodium 137, potassium 4.3, BUN is 67, creatinine of 3. Troponin initially 4.52, then 5.09 yesterday evening and 4.09 yesterday evening. CRP elevated at 227. IMPRESSION: Mr. Pederson has multiple medical problems including hypertension, coronary artery disease, ischemic cardiomyopathy, and renal insufficiency, vascular disease, now has pneumonia with new-onset atrial fibrillation, interval decrease in his LV function, and elevated troponins. This raised the possibility of progression of his coronary disease versus demand ischemia in the setting of renal failure. He also has new atrial fibrillation with a relatively slow rate. I discussed these findings with him and his family and I have recommended the followin. For the time being, I would recommend holding his beta-veronique, allowing his heart rate to increase cautiously, observing for rebound hypertension and tachycardia. 2. Would continue to control blood pressure as needed, consider using amlodipine if necessary. 3. Would avoid volume overload given his systolic dysfunction, in terms of his valvular dysfunction as well as pump dysfunction. 4. Would continue with statin. 5. Would continue aspirin as you are doing. 6. Would suggest anticoagulation given the presence of atrial fibrillation. 7. If he continues to have slow and fast rhythms, he may need a pacemaker for more definitive rate control. 8. Given the new decrease in LV function and increased troponins, we have to consider the possibility of progression of his coronary disease. I suggested he consider the possibility of a cath if he continues to have LV dysfunction and fatigue. 9. He understands the potential for a cath to cause complications including but not limited to stroke and renal failure and need for dialysis. This was reviewed with him and his family. [id number]/[facility] #: [id number] KEV
[2017-03-03] MEDS: Levothyroxine TAB* 50 MCG TAB PO SCH (05:33)
[2017-03-03] MEDS: Nystatin TOP POWDER* 15 GM BTL TOPICAL SCH ×3 (05:33→21:18)
[2017-03-03 05:58] LABS: Hematocrit 28 % (42-52); Hemoglobin 9.1 g/dl (14.0-18.0); Mean Corpuscular HGB Conc 33 g/dl (31-36); Mean Corpuscular Hemoglobin 33 pg (27-31); Mean Corpuscular Volume 101 fL (80-94); Mean Platelet Volume 9 um3 (7.4-10.4); Red Blood Count 2.78 10^6/ul (4.0-5.4); Red Cell Distribution Width 16 % (10.5-15); White Blood Count 13.4 10^3/ul (3.5-10.8)
[2017-03-03 06:09] LABS: BUN/Creatinine Ratio 23.9 (8-20); Calcium 8.7 mg/dL (8.6-10.3); EGFR Non-African American 22.5 (>60); Magnesium 2.3 mg/dL (1.9-2.7); Potassium 3.8 mmol/L (3.5-5.0)
--- NOTE | 2017-03-03 09:13 | PN ---
Subjective Date of Service: 03/03/17 Interval History: HOSPITALIST PROGRESS NOTE Patient seen and examined at bedside. He feels a little better this AM. Denies chest pain or palpitations, breathing is improved. Had a restful night with his CPAP on. Family History: Unchanged from Admission Social History: Unchanged from Admission Past Medical History: Unchanged from Admission Objective Active Medications: Acetaminophen (Tylenol Tab*) 650 mg PO Q4H PRN PRN Reason: FEVER/PAIN Aspirin (Aspirin Ec Low Dose*) 81 mg PO DAILY [facility] Last Admin: 03/02/17 08:11 Dose: 81 mg Atorvastatin Calcium (Lipitor*) 20 mg PO DAILY [facility] Last Admin: 03/02/17 08:11 Dose: 20 mg Furosemide (Lasix Tab*) 40 mg PO DAILY [facility] Heparin Sodium (Porcine) (Heparin Vial(*)) 0 units IV .PER PROTOCOL [facility] PRN Reason: Protocol Last Admin: 03/02/17 21:22 Dose: 5,400 units Ceftriaxone Sodium 1,000 mg/ (Sodium Chloride) 50 mls @ 200 mls/hr IVPB Q24H [facility] Last Admin: 03/02/17 16:31 Dose: 200 mls/hr Azithromycin 500 mg/ Sodium (Chloride) 250 mls @ 250 mls/hr IVPB Q24H [facility] Last Admin: 03/02/17 16:39 Dose: 250 mls/hr Heparin Sodium/Dextrose (Heparin Drip 25,000 Units(*)) 25,000 units in 500 mls @ 0 mls/hr IV .NO INITIAL BOLUS [facility]; As Directed PRN Reason: Protocol Last Admin: 03/02/17 20:11 Dose: 20 mls/hr Levothyroxine Sodium (Synthroid Tab*) 50 mcg PO DAILY@0600 [facility] Last Admin: 03/03/17 05:33 Dose: 50 mcg Nystatin (Nystatin Top Powder*) 1 applic TOPICAL Q8HR [facility] Last Admin: 03/03/17 05:33 Dose: 1 powder Omeprazole (Prilosec Cap*) 20 mg PO DAILY@0730 [facility] Last Admin: 03/02/17 08:11 Dose: 20 mg Ondansetron HCl (Zofran Inj*) 4 mg IV Q6H PRN PRN Reason: NAUSEA Prednisone (Deltasone Tab*) 40 mg PO DAILY [facility] Tamsulosin HCl (Flomax Cap*) 0.4 mg PO DAILY [facility] Last Admin: 03/02/17 08:11 Dose: 0.4 mg Warfarin Sodium (Coumadin Tab(*)) 5 mg PO DAILY@1700 [facility] PRN Reason: Protocol Vital Signs 03/03/17 03/03/17 03/03/17 07:00 07:46 08:00 Temperature 98.2 F Pulse Rate 37 54 Respiratory 25 22 Rate Blood Pressure 127/48 146/52 (mmHg) O2 Sat by Pulse 98 99 Oximetry 03/03/17 09:00 Temperature Pulse Rate 44 Respiratory 24 Rate Blood Pressure 152/50 (mmHg) O2 Sat by Pulse 96 Oximetry Oxygen Devices in Use Now: Nasal Cannula Appearance: Elderly male lying in bed in NAD. Eyes: No Scleral Icterus Ears/Nose/Mouth/Throat: Mucous Membranes Moist Neck: Trachea Midline Respiratory: Symmetrical Chest Expansion and Respiratory Effort, - - BS+ bilaterally with left base crackles Cardiovascular: - - Normal S1 and S2, irregularly irregular, +SM Abdominal: NL Sounds; No Tenderness; No Distention Extremities: - - Bilateral LE severe pitting edema, up to his hips Neurological: Alert and Oriented x 3, NL Muscle Strength and Tone Lines/Tubes/Other Access: Clean, Dry and Intact [place] Nutrition: Taking PO's Result Diagrams: 03/03/17 05:20 03/03/17 05:20 Assess/Plan/Problems-Billing Assessment: Mr. Pederson is an 81 yo M with PMH of CAD, PVD, R subclavian stenosis, CKD 4, hypothyroidism, II degree AV block type 1, temporal arteritis (on chronic prednisone) who presented with fever, fall, generalized weakness, elevated troponin. - Patient Problems (1) Sepsis Comment: - Met sepsis criteria on admission with fever, leukocytosis, and tachycardia. - Source is likely community acquired pneumonia vs pneumonia. (2) Pneumonia Comment: - Blood cultures showed no growth. - Legionella and pneumococcal Ag are negative. - Continue Ceftriaxone/Zithromax #3. - (3) Atrial fibrillation Comment: - New onset this admission. 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 - Cardiology input appreciated - beta-veronique on hold for now, tentative plan for pacer next week. - Continue heparin drip for now, no Warfarin until final decision about pacer. (4) Demand ischemia Comment: - Progression of CAD vs demand ischemia secondary to sepsis. - Troponin peaked at 5. - Cardiology input appreciated - continue ASA, beta-veronique on hold for now. - Patient not interested in cardiac cath due to risk of worsening renal function /dyalisis. (5) Chronic systolic (congestive) heart failure Comment: - Echo shows EF 30-35% (EF 45% 2016), global hypokinesis, moderate - d/w Cardiology - continue PO Lasix for now. Depending on how he looks tomorrow , may give low dose IV Lasix, keeping in mind his . (6) Urinary retention Comment: - Angeles was placed at admission due to residual >600 ml. - Will d/c Angeles and monitor. (7) Hypothyroidism Comment: - Continue Levothyroxine. - TSH 2.04. (8) Temporal arteritis Comment: - Continue prednisone. (9) DVT prophylaxis Comment: - Heparin drip. Status and Disposition: Inpatient. Continue to monitor in ICU until further decision re: pacer.
[2017-03-03] MEDS: Tamsulosin CAP* 0.4 MG PO SCH (09:14)
[2017-03-03] MEDS: predniSONE TAB* 20 MG PO SCH (09:14)
[2017-03-03] MEDS: Furosemide TAB* 40 MG PO SCH (09:14)
[2017-03-03] MEDS: Aspirin EC Low Dose* 81 MG TAB.EC PO SCH (09:14)
[2017-03-03] MEDS: Omeprazole CAP* 20 MG PO SCH (09:14)
[2017-03-03] MEDS: Atorvastatin* 20 MG TAB PO SCH (09:14)
[2017-03-03] MEDS ORDERED: Potassium Chloride LIQUID* 20 MEQ PACKET PO ONE (10:00)
[2017-03-03 10:06] LABS: Troponin I 1.1 ng/mL (<0.04)
[2017-03-03] MEDS: Azithromycin IV(*) 500 MG in NS 0.9% 250 ML* 250 ML IVPB SCH (15:20)
[2017-03-03] MEDS: Acetaminophen TAB* 325 MG PO PRN (15:37)
[2017-03-03] MEDS: Heparin DRIP 25,000 UNITS(*) 25,000 UNITS/500 ML BAG IV SCH (16:23)
[2017-03-03] MEDS: cefTRIAXone VIAL(*) 1,000 MG in NS 0.9% 50 ML* 50 ML IVPB SCH (16:50)
[2017-03-03] MEDS ORDERED: Warfarin TAB(*) 5 MG PO SCH (17:00)
[2017-03-04] MEDS: Levothyroxine TAB* 50 MCG TAB PO SCH (05:58)
[2017-03-04] MEDS: Nystatin TOP POWDER* 15 GM BTL TOPICAL SCH ×3 (06:22→21:25)
[2017-03-04 06:26] LABS: Hematocrit 35 % (42-52); Mean Corpuscular HGB Conc 32 g/dl (31-36); Mean Corpuscular Hemoglobin 32 pg (27-31); Mean Corpuscular Volume 100 fL (80-94); Mean Platelet Volume 8 um3 (7.4-10.4); Red Blood Count 3.47 10^6/ul (4.0-5.4); Red Cell Distribution Width 16 % (10.5-15); White Blood Count 15.3 10^3/ul (3.5-10.8)
[2017-03-04 06:45] LABS: BUN/Creatinine Ratio 25.7 (8-20); Calcium 9.5 mg/dL (8.6-10.3); EGFR African American 32.1 (>60); Potassium 4.3 mmol/L (3.5-5.0)
[2017-03-04] MEDS: Tamsulosin CAP* 0.4 MG PO SCH (08:05)
[2017-03-04] MEDS: Atorvastatin* 20 MG TAB PO SCH (08:05)
[2017-03-04] MEDS: Omeprazole CAP* 20 MG PO SCH (08:05)
[2017-03-04] MEDS: Heparin VIAL(*) 5000 UNITS/ML VIAL (FIVE THOUSAND) IV SCH (08:06)
[2017-03-04] MEDS: Aspirin EC Low Dose* 81 MG TAB.EC PO SCH (08:06)
[2017-03-04] MEDS: Furosemide TAB* 40 MG PO SCH (08:06)
[2017-03-04] MEDS: predniSONE TAB* 20 MG PO SCH (08:06)
[2017-03-04] MEDS ORDERED: Furosemide IV* 10 MG/ML VIAL (40 MG) IV SLOW PU ONE (11:11)
[2017-03-04] MEDS: Heparin DRIP 25,000 UNITS(*) 25,000 UNITS/500 ML BAG IV SCH (11:37)
--- NOTE | 2017-03-04 12:13 | PN ---
Subjective Date of Service: 03/04/17 Interval History: HOSPITALIST PROGRESS NOTE Patient seen and examined at bedside. He feels well today. Feels dyspnea is improved, and although he had some shortness of breath with exertion, he feels it's less than on admission. Denies CP, palpitations, or dizziness. Voiding well with no issues after Angeles removed. Family History: Unchanged from Admission Social History: Unchanged from Admission Past Medical History: Unchanged from Admission Objective Active Medications: Acetaminophen (Tylenol Tab*) 650 mg PO Q4H PRN PRN Reason: FEVER/PAIN Last Admin: 03/03/17 15:37 Dose: 650 mg Aspirin (Aspirin Ec Low Dose*) 81 mg PO DAILY [facility]EE Last Admin: 03/04/17 08:06 Dose: 81 mg Atorvastatin Calcium (Lipitor*) 20 mg PO DAILY LEE Last Admin: 03/04/17 08:05 Dose: 20 mg Furosemide (Lasix Tab*) 40 mg PO DAILY [facility]EE Last Admin: 03/04/17 08:06 Dose: 40 mg Heparin Sodium (Porcine) (Heparin Vial(*)) 0 units IV .PER PROTOCOL [facility] PRN Reason: Protocol Last Admin: 03/04/17 08:06 Dose: 2,900 units Ceftriaxone Sodium 1,000 mg/ (Sodium Chloride) 50 mls @ 200 mls/hr IVPB Q24H [facility] Last Admin: 03/03/17 16:50 Dose: 200 mls/hr Azithromycin 500 mg/ Sodium (Chloride) 250 mls @ 250 mls/hr IVPB Q24H [facility] Last Admin: 03/03/17 15:20 Dose: 250 mls/hr Heparin Sodium/Dextrose (Heparin Drip 25,000 Units(*)) 25,000 units in 500 mls @ 0 mls/hr IV .NO INITIAL BOLUS LEE; As Directed PRN Reason: Protocol Last Admin: 03/04/17 11:37 Dose: 29 mls/hr Levothyroxine Sodium (Synthroid Tab*) 50 mcg PO DAILY@0600 [facility] Last Admin: 03/04/17 05:58 Dose: 50 mcg Nystatin (Nystatin Top Powder*) 1 applic TOPICAL Q8HR [facility] Last Admin: 03/04/17 06:22 Dose: 1 powder Omeprazole (Prilosec Cap*) 20 mg PO DAILY@0730 [facility] Last Admin: 03/04/17 08:05 Dose: 20 mg Ondansetron HCl (Zofran Inj*) 4 mg IV Q6H PRN PRN Reason: NAUSEA Prednisone (Deltasone Tab*) 40 mg PO DAILY [facility] Last Admin: 03/04/17 08:06 Dose: 40 mg Tamsulosin HCl (Flomax Cap*) 0.4 mg PO DAILY [facility] Last Admin: 03/04/17 08:05 Dose: 0.4 mg Vital Signs 03/04/17 03/04/17 03/04/17 08:00 09:00 10:00 Temperature 98.3 F Pulse Rate 50 40 46 Respiratory 29 25 41 Rate Blood Pressure 116/50 116/34 122/47 (mmHg) O2 Sat by Pulse 91 90 95 Oximetry Oxygen Devices in Use Now: Nasal Cannula Appearance: Pleasant elderly male lying in bed in NAD. Eyes: No Scleral Icterus Ears/Nose/Mouth/Throat: Mucous Membranes Moist Neck: Trachea Midline Respiratory: Symmetrical Chest Expansion and Respiratory Effort, - - BS+ bilaterally with left base crackles Cardiovascular: RRR - Normal S1 and S2 Abdominal: NL Sounds; No Tenderness; No Distention Extremities: - - Bilateral LE severe pitting edema Neurological: Alert and Oriented x 3, NL Muscle Strength and Tone Lines/Tubes/Other Access: Clean, Dry and Intact Peripheral IV Nutrition: Taking PO's Result Diagrams: 03/04/17 06:18 03/04/17 06:18 Assess/Plan/Problems-Billing Assessment: Mr. Pederson is an 81 yo M with PMH of CAD, PVD, R subclavian stenosis, CKD 4, hypothyroidism, II degree AV block type 1, temporal arteritis (on chronic prednisone) who presented with fever, fall, generalized weakness, elevated troponin. - Patient Problems (1) Sepsis Comment: - Met sepsis criteria on admission with fever, leukocytosis, and tachycardia. - Source is likely community acquired pneumonia vs bronchitis. (2) Pneumonia Comment: - Blood cultures showed no growth. - Legionella and pneumococcal Ag are negative. - Continue Ceftriaxone/Zithromax #4. (3) Atrial fibrillation Comment: - New onset this admission. 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 - Cardiology input appreciated - beta-veronique on hold for now, tentative plan for pacer next week. - Continue heparin drip for now, no Warfarin until final decision about pacer. (4) Demand ischemia Comment: - Progression of CAD vs demand ischemia secondary to sepsis. - Troponin peaked at 5. - Cardiology input appreciated - continue ASA, beta-veronique on hold for now. - Patient not interested in cardiac cath due to risk of worsening renal function /dyalisis. (5) Chronic systolic (congestive) heart failure Comment: - Echo shows EF 30-35% (EF 45% 2016), global hypokinesis, moderate . - Continue PO Lasix for now, but depending on Cardiology opinion, may give one dose of IV Lasix. - Arnel wrap LE. (6) Urinary retention Comment: - Angeles was placed at admission due to residual >600 ml. - Angeles removed 03/03/17. (7) Hypothyroidism Comment: - Continue Levothyroxine. - TSH 2.04. (8) Temporal arteritis Comment: - Continue prednisone. (9) DVT prophylaxis Comment: - Heparin drip. (10) Full code status Current Visit: Yes Status: Acute Code(s): Z78.9 - OTHER SPECIFIED HEALTH STATUS SNOMED Code(s): 556426815 Status and Disposition: Inpatient. Continue to monitor in ICU until further decision re: pacer.
[2017-03-04] MEDS: cefTRIAXone VIAL(*) 1,000 MG in NS 0.9% 50 ML* 50 ML IVPB SCH (16:31)
[2017-03-04] MEDS: Azithromycin IV(*) 500 MG in NS 0.9% 250 ML* 250 ML IVPB SCH (18:25)
[2017-03-04] MEDS ORDERED: Bisacodyl SUPP* 10 MG SUPP PR ONE (23:00)
[2017-03-04] MEDS: Docusate CAP* 100 MG PO SCH (23:09)
[2017-03-05] MEDS: Heparin DRIP 25,000 UNITS(*) 25,000 UNITS/500 ML BAG IV SCH (05:31)
[2017-03-05] MEDS: Nystatin TOP POWDER* 15 GM BTL TOPICAL SCH ×3 (05:32→21:39)
[2017-03-05] MEDS: Levothyroxine TAB* 50 MCG TAB PO SCH (05:40)
[2017-03-05 06:02] LABS: Hematocrit 28 % (42-52); Hemoglobin 9.2 g/dl (14.0-18.0); Mean Corpuscular HGB Conc 33 g/dl (31-36); Mean Corpuscular Hemoglobin 32 pg (27-31); Mean Corpuscular Volume 99 fL (80-94); Mean Platelet Volume 8 um3 (7.4-10.4); Red Blood Count 2.86 10^6/ul (4.0-5.4); Red Cell Distribution Width 16 % (10.5-15); White Blood Count 10.2 10^3/ul (3.5-10.8)
[2017-03-05 06:27] LABS: BUN/Creatinine Ratio 26.8 (8-20); Calcium 8.9 mg/dL (8.6-10.3); EGFR Non-African American 24.8 (>60); Potassium 4.1 mmol/L (3.5-5.0)
[2017-03-05 06:30] LABS: Troponin I 0.44 ng/mL (<0.04)
[2017-03-05] MEDS: Atorvastatin* 20 MG TAB PO SCH (09:27)
[2017-03-05] MEDS: Docusate CAP* 100 MG PO SCH ×2 (09:27→21:39)
[2017-03-05] MEDS: Aspirin EC Low Dose* 81 MG TAB.EC PO SCH (09:27)
[2017-03-05] MEDS: Tamsulosin CAP* 0.4 MG PO SCH (09:27)
[2017-03-05] MEDS: Furosemide TAB* 40 MG PO SCH (09:28)
[2017-03-05] MEDS: Omeprazole CAP* 20 MG PO SCH (09:28)
[2017-03-05] MEDS: predniSONE TAB* 20 MG PO SCH (09:28)
[2017-03-05] MEDS ORDERED: Furosemide IV* 10 MG/ML VIAL (40 MG) IV ONE (13:37)
[2017-03-05] MEDS ORDERED: Potassium Chloride LIQUID* 20 MEQ PACKET PO ONE (14:00)
--- NOTE | 2017-03-05 14:53 | PN ---
Subjective Date of Service: 03/05/17 Interval History: HOSPITALIST PROGRESS NOTE Patient seen and examined at bedside. He feels well today, offers no new complaints. Family History: Unchanged from Admission Social History: Unchanged from Admission Past Medical History: Unchanged from Admission Objective Active Medications: Acetaminophen (Tylenol Tab*) 650 mg PO Q4H PRN PRN Reason: FEVER/PAIN Last Admin: 03/03/17 15:37 Dose: 650 mg Aspirin (Aspirin Ec Low Dose*) 81 mg PO DAILY LEE Last Admin: 03/05/17 09:27 Dose: 81 mg Atorvastatin Calcium (Lipitor*) 20 mg PO DAILY [facility] Last Admin: 03/05/17 09:27 Dose: 20 mg Docusate Sodium (Colace Cap*) 200 mg PO BID [facility] Last Admin: 03/05/17 09:27 Dose: 200 mg Furosemide (Lasix Tab*) 40 mg PO DAILY [facility] Last Admin: 03/05/17 09:28 Dose: 40 mg Heparin Sodium (Porcine) (Heparin Vial(*)) 0 units IV .PER PROTOCOL [facility] PRN Reason: Protocol Last Admin: 03/04/17 08:06 Dose: 2,900 units Ceftriaxone Sodium 1,000 mg/ (Sodium Chloride) 50 mls @ 200 mls/hr IVPB Q24H [facility] Last Admin: 03/04/17 16:31 Dose: 200 mls/hr Azithromycin 500 mg/ Sodium (Chloride) 250 mls @ 250 mls/hr IVPB Q24H [facility] Last Admin: 03/04/17 18:25 Dose: 250 mls/hr Heparin Sodium/Dextrose (Heparin Drip 25,000 Units(*)) 25,000 units in 500 mls @ 0 mls/hr IV .NO INITIAL BOLUS LEE; As Directed PRN Reason: Protocol Last Admin: 03/05/17 05:31 Dose: 26 mls/hr Levothyroxine Sodium (Synthroid Tab*) 50 mcg PO DAILY@0600 [facility] Last Admin: 03/05/17 05:40 Dose: 50 mcg Nystatin (Nystatin Top Powder*) 1 applic TOPICAL Q8HR [facility] Last Admin: 03/05/17 05:32 Dose: 1 powder Omeprazole (Prilosec Cap*) 20 mg PO DAILY@0730 [facility] Last Admin: 03/05/17 09:28 Dose: 20 mg Ondansetron HCl (Zofran Inj*) 4 mg IV Q6H PRN PRN Reason: NAUSEA Prednisone (Deltasone Tab*) 40 mg PO DAILY [facility] Last Admin: 03/05/17 09:28 Dose: 40 mg Tamsulosin HCl (Flomax Cap*) 0.4 mg PO DAILY [facility] Last Admin: 03/05/17 09:27 Dose: 0.4 mg Vital Signs 03/05/17 03/05/17 03/05/17 03:00 03:21 04:00 Temperature 98.9 F Pulse Rate 38 39 Respiratory 22 22 22 Rate Blood Pressure 134/50 139/53 (mmHg) O2 Sat by Pulse 94 95 Oximetry Oxygen Devices in Use Now: Nasal Cannula Appearance: Pleasant elderly male lying in bed in NAD. Eyes: No Scleral Icterus Ears/Nose/Mouth/Throat: Mucous Membranes Moist Neck: Trachea Midline Respiratory: Symmetrical Chest Expansion and Respiratory Effort, - - BS+ bilaterally with bibasilar crackles Cardiovascular: RRR - Normal S1 an dS2 Abdominal: NL Sounds; No Tenderness; No Distention Extremities: - - Bilateral LE pitting edema Neurological: Alert and Oriented x 3, NL Muscle Strength and Tone Lines/Tubes/Other Access: Clean, Dry and Intact Peripheral IV Nutrition: Taking PO's Result Diagrams: 03/05/17 05:30 03/05/17 05:30 Assess/Plan/Problems-Billing Assessment: Mr. Pederson is an 81 yo M with PMH of CAD, PVD, R subclavian stenosis, CKD 4, hypothyroidism, II degree AV block type 1, temporal arteritis (on chronic prednisone) who presented with fever, fall, generalized weakness, elevated troponin. - Patient Problems (1) Sepsis Comment: - Met sepsis criteria on admission with fever, leukocytosis, and tachycardia. - Source is likely community acquired pneumonia vs bronchitis. (2) Pneumonia Comment: - Blood cultures showed no growth. - Legionella and pneumococcal Ag are negative. - Continue Ceftriaxone/Zithromax #5. (3) Atrial fibrillation Comment: - New onset this admission. 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 - Cardiology input appreciated - beta-veronique on hold for now. - Continue heparin drip for now, no Warfarin as pacer placement is planned for tomorrow. (4) Demand ischemia Comment: - Progression of CAD vs demand ischemia secondary to sepsis. - Troponin peaked at 5. - Cardiology input appreciated - continue ASA, beta-veronique on hold for now. - Patient not interested in cardiac cath due to risk of worsening renal function /dyalisis. (5) Chronic systolic (congestive) heart failure Comment: - Echo shows EF 30-35% (EF 45% 2015), global hypokinesis, moderate . - Continue PO Lasix for now, but depending on Cardiology opinion, may give one dose of IV Lasix. - Arnel wrap LE. (6) Urinary retention Comment: - Angeles was placed at admission due to residual >600 ml. - Angeles removed 03/03/17. (7) Hypothyroidism Comment: - Continue Levothyroxine. - TSH 2.04. (8) Temporal arteritis Comment: - Continue prednisone. (9) DVT prophylaxis Comment: - Heparin drip. (10) Full code status Current Visit: Yes Status: Acute Code(s): Z78.9 - OTHER SPECIFIED HEALTH STATUS SNOMED Code(s): 029352301 Status and Disposition: Inpatient. Continue to monitor in ICU until pacer placed.
[2017-03-05] MEDS: Azithromycin IV(*) 500 MG in NS 0.9% 250 ML* 250 ML IVPB SCH (17:04)
[2017-03-05] MEDS: cefTRIAXone VIAL(*) 1,000 MG in NS 0.9% 50 ML* 50 ML IVPB SCH (20:09)
[2017-03-06] MEDS: CMCS: Melatonin (NF) 3 MG TAB PO PRN ×2 (02:34→22:50)
[2017-03-06 05:51] LABS: Anion Gap 8 mmol/L (2-11); BUN/Creatinine Ratio 28.3 (8-20); Blood Urea Nitrogen 64 mg/dL (6-24); CO2 Carbon Dioxide 22 mmol/L (22-32); Calcium 8.9 mg/dL (8.6-10.3); Chloride 105 mmol/L (101-111); EGFR African American 35.9 (>60); EGFR Non-African American 27.9 (>60); Glucose 118 mg/dL (70-100); Potassium 4.2 mmol/L (3.5-5.0); Sodium 135 mmol/L (133-145)
[2017-03-06 05:53] LABS: Hematocrit 29 % (42-52); Hemoglobin 9.2 g/dl (14.0-18.0); Mean Corpuscular HGB Conc 32 g/dl (31-36); Mean Corpuscular Hemoglobin 32 pg (27-31); Mean Corpuscular Volume 100 fL (80-94); Mean Platelet Volume 8 um3 (7.4-10.4); Red Blood Count 2.89 10^6/ul (4.0-5.4); Red Cell Distribution Width 16 % (10.5-15); White Blood Count 11.6 10^3/ul (3.5-10.8)
[2017-03-06] MEDS: Nystatin TOP POWDER* 15 GM BTL TOPICAL SCH ×3 (05:53→21:11)
[2017-03-06] MEDS: Levothyroxine TAB* 50 MCG TAB PO SCH (05:54)
[2017-03-06 06:01] LABS: Add Diff/Slide Review? Slide Review Added; Comments Flag Yes
[2017-03-06 06:04] LABS: Iron 22 ug/dL (50-212); Total Iron Binding Capacity 211 mcg/dL (250-450); Transferrin 151 mg/dL (203-362)
[2017-03-06 06:14] LABS: TSH (Thyroid Stimulating Horm) 1.16 mcIU/mL (0.34-5.60)
[2017-03-06] MEDS ORDERED: Heparin DRIP 25,000 UNITS(*) 25,000 UNITS/500 ML BAG IVPB SCH (09:45)
[2017-03-06] MEDS ORDERED: Furosemide IV* 10 MG/ML VIAL (40 MG) IV ONE (09:50)
[2017-03-06] MEDS ORDERED: Potassium Chloride LIQUID* 20 MEQ PACKET PO ONE (09:52)
[2017-03-06] MEDS ORDERED: Heparin VIAL(*) 5000 UNITS/ML VIAL (FIVE THOUSAND) IV SCH (10:00)
[2017-03-06 10:18] LABS: C Reactive Protein 97.55 mg/L (< 5.00)
[2017-03-06 10:35] LABS: Add Diff/Slide Review? Slide Review Added; Comments Flag Yes; Hematocrit 32 % (42-52); Hemoglobin 10.5 g/dl (14.0-18.0); Mean Corpuscular HGB Conc 33 g/dl (31-36); Mean Corpuscular Hemoglobin 32 pg (27-31); Mean Corpuscular Volume 98 fL (80-94); Mean Platelet Volume 8 um3 (7.4-10.4); Red Blood Count 3.27 10^6/ul (4.0-5.4); Red Cell Distribution Width 16 % (10.5-15)
[2017-03-06 10:44] LABS: Folate > 20.00 ng/mL (>3.99)
[2017-03-06 10:45] LABS: Vitamin B12 836 pg/mL (180-914)
[2017-03-06] MEDS: Tamsulosin CAP* 0.4 MG PO SCH (11:17)
[2017-03-06] MEDS: Vitamin THERAPEUTIC TAB PO SCH (11:18)
[2017-03-06] MEDS: Atorvastatin* 20 MG TAB PO SCH (11:18)
[2017-03-06] MEDS: Ferrous Sulfate TAB* 325 MG PO SCH ×2 (11:18→21:11)
[2017-03-06] MEDS: Aspirin EC Low Dose* 81 MG TAB.EC PO SCH (11:18)
[2017-03-06] MEDS: predniSONE TAB* 20 MG PO SCH (11:19)
[2017-03-06] MEDS: Omeprazole CAP* 20 MG PO SCH (11:19)
[2017-03-06] MEDS: Docusate CAP* 100 MG PO SCH ×2 (11:24→21:11)
[2017-03-06] MEDS: Furosemide TAB* 40 MG PO SCH (12:10)
--- NOTE | 2017-03-06 12:53 | PN ---
Subjective Date of Service: 03/06/17 Interval History: HOSPITALIST PROGRESS NOTE Patient seen and examined at bedside. He offers no complaints today. Breathing is improved, slept comfortably last night. Family History: Unchanged from Admission Social History: Unchanged from Admission Past Medical History: Unchanged from Admission Objective Active Medications: Acetaminophen (Tylenol Tab*) 650 mg PO Q4H PRN PRN Reason: FEVER/PAIN Last Admin: 03/03/17 15:37 Dose: 650 mg Aspirin (Aspirin Ec Low Dose*) 81 mg PO DAILY [facility] Last Admin: 03/06/17 11:18 Dose: 81 mg Atorvastatin Calcium (Lipitor*) 20 mg PO DAILY [facility] Last Admin: 03/06/17 11:18 Dose: 20 mg Docusate Sodium (Colace Cap*) 200 mg PO BID [facility] Last Admin: 03/06/17 11:24 Dose: 200 mg Ferrous Sulfate (Ferrous Sulfate Tab*) 325 mg PO BID [facility] Last Admin: 03/06/17 11:18 Dose: 325 mg Heparin Sodium (Porcine) (Heparin Vial(*)) 0 units IV .PER PROTOCOL [facility] PRN Reason: Protocol Stop: 03/06/17 18:00 Last Admin: 03/06/17 11:34 Dose: 5,400 units Ceftriaxone Sodium 1,000 mg/ (Sodium Chloride) 50 mls @ 200 mls/hr IVPB Q24H [facility] Last Admin: 03/05/17 20:09 Dose: 200 mls/hr Azithromycin 500 mg/ Sodium (Chloride) 250 mls @ 250 mls/hr IVPB Q24H [facility] Last Admin: 03/05/17 17:04 Dose: 250 mls/hr Heparin Sodium/Dextrose (Heparin Drip 25,000 Units(*)) 25,000 units in 500 mls @ 0 mls/hr IVPB .PER RATE LEE; Per Protocol PRN Reason: Protocol Stop: 03/06/17 18:00 Last Admin: 03/06/17 11:35 Dose: 26 mls/hr Levothyroxine Sodium (Synthroid Tab*) 50 mcg PO DAILY@0600 [facility] Last Admin: 03/06/17 05:54 Dose: 50 mcg Melatonin (Melatonin (Nf)) 3 mg PO BEDTIME PRN PRN Reason: SLEEP Last Admin: 03/06/17 02:34 Dose: 3 mg Multivitamins (Theragran Tab*) 1 tab PO DAILY [facility] Last Admin: 03/06/17 11:18 Dose: 1 tab Nystatin (Nystatin Top Powder*) 1 applic TOPICAL Q8HR [facility] Last Admin: 03/06/17 05:53 Dose: 1 powder Omeprazole (Prilosec Cap*) 20 mg PO DAILY@0730 [facility] Last Admin: 03/06/17 11:19 Dose: 20 mg Ondansetron HCl (Zofran Inj*) 4 mg IV Q6H PRN PRN Reason: NAUSEA Prednisone (Deltasone Tab*) 40 mg PO DAILY [facility] Last Admin: 03/06/17 11:19 Dose: 40 mg Tamsulosin HCl (Flomax Cap*) 0.4 mg PO DAILY [facility] Last Admin: 03/06/17 11:17 Dose: 0.4 mg Torsemide (Demadex*) 20 mg PO ONCE ONE Stop: 03/08/17 08:01 Vital Signs 03/06/17 03/06/17 03/06/17 07:00 07:48 08:00 Temperature 97.8 F Pulse Rate 36 38 Respiratory 20 20 Rate Blood Pressure 128/39 128/52 (mmHg) O2 Sat by Pulse 97 95 Oximetry Oxygen Devices in Use Now: Nasal Cannula Appearance: Pleasant elderly male lying in bed in NAD. Eyes: No Scleral Icterus Ears/Nose/Mouth/Throat: Mucous Membranes Moist Neck: Trachea Midline Respiratory: Symmetrical Chest Expansion and Respiratory Effort, - - BS+ bilaterally wlith bibasilar rales Cardiovascular: - - Normal S1 and S2, irregularly irregular Abdominal: NL Sounds; No Tenderness; No Distention Extremities: - - Bilateral LE edema Neurological: Alert and Oriented x 3, NL Muscle Strength and Tone Lines/Tubes/Other Access: Clean, Dry and Intact Peripheral IV Nutrition: Taking PO's Result Diagrams: 03/06/17 10:25 03/06/17 10:25 Assess/Plan/Problems-Billing Assessment: Mr. Pederson is an 81 yo M with PMH of CAD, PVD, R subclavian stenosis, CKD 4, hypothyroidism, II degree AV block type 1, temporal arteritis (on chronic prednisone) who presented with fever, fall, generalized weakness, elevated troponin. - Patient Problems (1) Sepsis Comment: - Met sepsis criteria on admission with fever, leukocytosis, and tachycardia. - Source is likely community acquired pneumonia vs bronchitis. (2) Pneumonia Comment: - Blood cultures showed no growth. - Legionella and pneumococcal Ag are negative. - Continue Ceftriaxone #6 and d/c Zithromax. (3) Atrial fibrillation Comment: - New onset this admission. 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 - Cardiology input appreciated - pacer placement today. (4) Demand ischemia Comment: - Progression of CAD vs demand ischemia secondary to sepsis. - Troponin peaked at 5. - Cardiology input appreciated - continue ASA, beta-veronique on hold for now. - Patient not interested in cardiac cath due to risk of worsening renal function /dyalisis. (5) Chronic systolic (congestive) heart failure Comment: - Echo shows EF 30-35% (EF 45% 2015), global hypokinesis, moderate . - Responded well to IV Lasix - switch back to PO. - Arnel wrap LE. (6) Urinary retention Comment: - Angeles was placed at admission due to residual >600 ml. - Angeles removed 03/03/17. (7) Hypothyroidism Comment: - Continue Levothyroxine. - TSH 2.04. (8) Temporal arteritis Comment: - Continue prednisone. (9) DVT prophylaxis Comment: - Heparin drip on hold for pacer placement. Will resume when cleared by Cardiology. - SCDs as tolerated. (10) Full code status Current Visit: Yes Status: Acute Code(s): Z78.9 - OTHER SPECIFIED HEALTH STATUS SNOMED Code(s): 976576464 Status and Disposition: Inpatient. Continue to monitor in ICU until pacer placed.
[2017-03-06 13:21] LABS: Erythrocyte Sed Rate 120 mm/Hr (0-40)
[2017-03-06] MEDS: Azithromycin IV(*) 500 MG in NS 0.9% 250 ML* 250 ML IVPB SCH (15:31)
[2017-03-06] MEDS: cefTRIAXone VIAL(*) 1,000 MG in NS 0.9% 50 ML* 50 ML IVPB SCH (17:26)
[2017-03-06] MEDS ORDERED: Melatonin (NF) ** ENTER STRENGTH IN LABEL DIRECTIONS PO PRN (22:35)
[2017-03-07] MEDS: Levothyroxine TAB* 50 MCG TAB PO SCH (05:08)
[2017-03-07] MEDS: Nystatin TOP POWDER* 15 GM BTL TOPICAL SCH ×3 (05:10→22:21)
[2017-03-07 05:40] LABS: BUN/Creatinine Ratio 29.9 (8-20); Calcium 9.3 mg/dL (8.6-10.3); EGFR African American 41.1 (>60); Potassium 4.4 mmol/L (3.5-5.0)
[2017-03-07] MEDS ORDERED: Midazolam* 1 MG/ML 5 ML VIAL (5 MG) ONE (07:26)
[2017-03-07] MEDS ORDERED: Iohexol 300 (CONTRAST) 10 ML SDV ONE (07:27)
[2017-03-07] MEDS ORDERED: fentaNYL* 50 MCG/ML 2 ML VIAL (100 MCG VIAL) ONE (07:27)
[2017-03-07] MEDS ORDERED: Lidocaine 1% INJ* 10 MG/ML 30 ML SDV ONE ×2 (07:29→08:00)
[2017-03-07] MEDS ORDERED: Clindamycin 600 MG IVPREMIX(* 600 MG/50 ML SDV IV ONE (07:30)
[2017-03-07] MEDS ORDERED: Heparin 2 UNITS/ML IVPREMIX* 0 ML IV ONE (07:31)
[2017-03-07] MEDS ORDERED: Flumazenil* 0.1 MG/ML 5 ML MDV ONE (07:40)
[2017-03-07] MEDS ORDERED: Naloxone* 0.4 MG/ML 1 ML VIAL ONE (07:41)
[2017-03-07] MEDS ORDERED: Atropine SYRINGE* 0.1 MG/ML 10 ML SYRINGE (1 MG) ONE (08:21)
[2017-03-07] MEDS: predniSONE TAB* 20 MG PO SCH (09:22)
[2017-03-07] MEDS: Atorvastatin* 20 MG TAB PO SCH (09:23)
[2017-03-07] MEDS: Omeprazole CAP* 20 MG PO SCH (09:24)
[2017-03-07] MEDS: Ferrous Sulfate TAB* 325 MG PO SCH ×2 (09:25→21:07)
[2017-03-07] MEDS: Aspirin EC Low Dose* 81 MG TAB.EC PO SCH (09:25)
[2017-03-07] MEDS: Vitamin THERAPEUTIC TAB PO SCH (09:25)
[2017-03-07] MEDS: Tamsulosin CAP* 0.4 MG PO SCH (09:25)
[2017-03-07] MEDS: Docusate CAP* 100 MG PO SCH ×2 (09:26→21:06)
[2017-03-07] MEDS ORDERED: guaiFENesin LIQ* 100 MG/5 ML UDC PO PRN (10:32)
[2017-03-07] MEDS: Metoprolol Tartrate TAB* 25 MG PO SCH ×2 (11:06→21:07)
--- NOTE | 2017-03-07 11:13 | RAD ---
Indication: Status post pacemaker placement. Single frontal view of the chest performed at 1040 hours was reviewed. Comparison is made with previous exam dated March 01, 2017. Cardiomegaly is noted. Pacemaker leads are in place. Interstitial edema is noted which may represent vascular congestion no pneumothorax is noted. IMPRESSION: CARDIOMEGALY WITH SUGGESTION OF VASCULAR CONGESTION. PACEMAKER LEADS ARE IN PLACE. NO PNEUMOTHORAX IS NOTED AFTER PACEMAKER PLACEMENT.
--- NOTE | 2017-03-07 13:06 | CONS ---
Cc: Ramana Landeros MD; Lit Saldana MD; Pietro Metzger MD * DATE OF CONSULT: 03/07/17 REASON FOR CONSULT: Evaluation for pacemaker. HISTORY OF PRESENT ILLNESS: Mr. Pederson is an 81-year-old gentleman followed by Dr. Saldana and Dr. Landeros with a complex past medical history including atherosclerotic disease, coronary and peripheral; chronic severe renal insufficiency; longstanding second degree AV block, admitted with evidence of infection and inflammation, steroids rebumped for temporal arteritis, in addition to antibiotics and he was found to be in atrial fibrillation with a low ventricular rate with frequent ventricular ectopy. An updated echocardiogram revealed the patient's ejection fraction had decreased to 30% to 35% down from 40% to 45%. Dr. Metzger had recommended a backup pacemaker to allow for increased heart rate , beta-blockade, and increased medical management for biventricular failure. The patient states that since admission, his breathing is much improved. He is no longer having fevers or chills. He feels his breathing is at his best baseline. He denies having fainted but admits that he slid off the bed on admission and is vague with respect to symptoms of weakness versus dizziness. 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 PAST SURGICAL HISTORY: Includes bilateral total knee replacements, carotid endarterectomy, appendectomy, bowel resection. MEDICATIONS: Inpatient medications include; 1. Prednisone 40 mg a day (increased from 9 mg a day). 2. Ceftriaxone. 3. Syntheroid 50 mcg daily 4. Tylenol 5. Aspirin 81 mg/day 6. Lipator 20 mg/day 7. Colace 8. Iron 9. Melatonin 10. MVI 11. Guaifenesin ALLERGIES: METHOTREXATE and CODEINE. PHYSICAL EXAM: The patient is an elderly overweight male in no acute distress. Blood pressure was 150/42, pulse was AFib at 65 beats a minute with frequent PVCs. HEENT: Pupils are equal, round. Mucous membranes moist. Neck: Thick from obesity without obvious thyromegaly or lymphadenopathy and no appreciable increased JVP lying at 30 degrees. Skin: Ecchymosis in the exposed areas and consistent with chronic steroid use. No appreciable cyanosis. Breath sounds were mildly diminished throughout but no appreciable wheezes, rales, or rhonchi. Coronary: S1, S2, regular, 2/6 systolic murmur heard in the upper sternal border. Abdomen: Soft, nontender, active bowel sounds. No appreciable hepatomegaly. Lower extremities show 3 to 4+ pitting edema, bilaterally up to the level of the knees. DIAGNOSTIC STUDIES/LABORATORY DATA: As of 03/06/17, sodium 135, potassium 4.2, BUN 64, creatinine 2.76, hemoglobin 9.2, hematocrit 28, white count 14, sed rate over 120, CRP 227, 98, 60.INR 1.23, BNP 295, TSH 1.16. Chest x-ray on admission consistent with congestive with heart failure, blood culture is negative. Urine culture negative. ECG from 03/06 shows AFib with ventricular rate of 53 beats a minute and single PVC, QRS axis +75 with normal interventricular conduction time and he meets voltage criteria for left ventricular hypertrophy. Rhythm strips reviewed, frequent PVCs and occasional episodes of nonsustained ventricular tachycardia up to 5 in a row. IMPRESSION: In summary, Mr. Pederson, an 81-year-old gentleman with ejection fraction of 30% to 35%, atrial fibrillation of uncertain duration that appears new since April of 2016, and replaces sinus rhythm with a second-degree AV block. He is bradycardic with ventricular ectopy. I discussed with Dr. Metzger and the patient that in my opinion, ideally he would be a candidate for defibrillator and because he would be pacemaker dependent, a [employer] device that would allow for biventricular synchronization. I presented these options to the patient in the presence of his daughter and he says from based on his understanding of his chronic kidney disease and risk of more aggressive management that he wants to proceed with a plain pacer to get him home now. I spent time explaining what a defibrillator does and he basically expressed that he is not planning on getting dialysis, he is not interested in aggressive measures, he is going to avoid recurrent admissions to hospitals. I did explain to him that this device could lead to an even lower ejection fraction but he says he also understands that it could be upgraded if needed to a biventricular device. My current plan will be to put in a MRI compatible pacemaker. We will attempt a dual chamber as worship of normal sinus rhythm might help his ejection fraction be restored to 40% to 45% (this is his first episode of afib to my knowledge). We will add clindamycin to his current antibiotics for antibiotic prophylaxis for procedure itself. [id number]/[facility] #: [id number] MTDD
[2017-03-07] MEDS: Heparin VIAL(*) 5000 UNITS/ML VIAL (FIVE THOUSAND) SUBCUT SCH ×2 (13:41→22:21)
[2017-03-07] MEDS ORDERED: guaiFENesin LIQ* 100 MG/5 ML UDC ONE (13:47)
[2017-03-07] MEDS: Acetaminophen TAB* 325 MG PO PRN (14:01)
--- NOTE | 2017-03-07 14:45 | PN ---
Subjective Date of Service: 03/07/17 Interval History: HOSPITALIST PROGRESS NOTE Patient seen and examined at bedside. He offers no new complaints today, anxious for his pacer placement. Family History: Unchanged from Admission Social History: Unchanged from Admission Past Medical History: Unchanged from Admission Objective Active Medications: Acetaminophen (Tylenol Tab*) 650 mg PO Q4H PRN PRN Reason: FEVER/PAIN Last Admin: 03/07/17 14:01 Dose: 650 mg Aspirin (Aspirin Ec Low Dose*) 81 mg PO DAILY [facility] Last Admin: 03/07/17 09:25 Dose: 81 mg Atorvastatin Calcium (Lipitor*) 20 mg PO DAILY [facility] Last Admin: 03/07/17 09:23 Dose: 20 mg Docusate Sodium (Colace Cap*) 200 mg PO BID [facility] Last Admin: 03/07/17 09:26 Dose: 200 mg Ferrous Sulfate (Ferrous Sulfate Tab*) 325 mg PO BID [facility] Last Admin: 03/07/17 09:25 Dose: 325 mg Guaifenesin (Robitussin*) 5 ml PO Q4H PRN PRN Reason: COUGH Last Admin: 03/07/17 13:53 Dose: 5 ml Heparin Sodium (Porcine) (Heparin Vial(*)) 5,000 units SUBCUT Q8HR [facility] Last Admin: 03/07/17 13:41 Dose: 5,000 units Ceftriaxone Sodium 1,000 mg/ (Sodium Chloride) 50 mls @ 200 mls/hr IVPB Q24H [facility] Last Admin: 03/06/17 17:26 Dose: 200 mls/hr Clindamycin HCl/Dextrose (Cleocin 600 Mg Ivpremix(*) Sdv) 600 mg in 50 mls @ 100 mls/hr IV Q8H [facility] Levothyroxine Sodium (Synthroid Tab*) 50 mcg PO DAILY@0600 [facility] Last Admin: 03/07/17 05:08 Dose: 50 mcg Melatonin (Melatonin (Nf)) 3 mg PO BEDTIME PRN PRN Reason: SLEEP Last Admin: 03/06/17 22:50 Dose: 3 mg Metoprolol Tartrate (Lopressor Tab*) 12.5 mg PO Q12HR [facility] Last Admin: 03/07/17 11:06 Dose: 12.5 mg Multivitamins (Theragran Tab*) 1 tab PO DAILY [facility] Last Admin: 03/07/17 09:25 Dose: 1 tab Nystatin (Nystatin Top Powder*) 1 applic TOPICAL Q8HR [facility] Last Admin: 03/07/17 05:10 Dose: 1 powder Omeprazole (Prilosec Cap*) 20 mg PO DAILY@0730 [facility] Last Admin: 03/07/17 09:24 Dose: 20 mg Ondansetron HCl (Zofran Inj*) 4 mg IV Q6H PRN PRN Reason: NAUSEA Prednisone (Deltasone Tab*) 40 mg PO DAILY [facility] Last Admin: 03/07/17 09:22 Dose: 40 mg Tamsulosin HCl (Flomax Cap*) 0.4 mg PO DAILY [facility] Last Admin: 03/07/17 09:25 Dose: 0.4 mg Torsemide (Demadex*) 20 mg PO ONCE ONE Stop: 03/08/17 08:01 Vital Signs 03/07/17 03/07/17 03/07/17 09:41 09:52 10:00 Temperature 98.1 F Pulse Rate 56 Respiratory 23 Rate Blood Pressure 153/67 145/65 (mmHg) O2 Sat by Pulse 95 Oximetry 03/07/17 03/07/17 13:30 14:00 Temperature Pulse Rate 60 77 Respiratory 23 20 Rate Blood Pressure 130/53 150/68 (mmHg) O2 Sat by Pulse 96 97 Oximetry Oxygen Devices in Use Now: Nasal Cannula Appearance: Elderly gentleman lying in bed in [facility]. Eyes: No Scleral Icterus Ears/Nose/Mouth/Throat: Mucous Membranes Moist Neck: Trachea Midline Respiratory: Symmetrical Chest Expansion and Respiratory Effort, - - BS+ bilaterally with no added sounds Cardiovascular: RRR - Normal S1 and S2 Abdominal: NL Sounds; No Tenderness; No Distention Extremities: - - Bilateral LE pitting edema Neurological: Alert and Oriented x 3, NL Muscle Strength and Tone Lines/Tubes/Other Access: Clean, Dry and Intact Peripheral IV Nutrition: Taking PO's Result Diagrams: 03/06/17 10:25 03/07/17 05:15 Assess/Plan/Problems-Billing Assessment: Mr. Pederson is an 81 yo M with PMH of CAD, PVD, R subclavian stenosis, CKD 4, hypothyroidism, II degree AV block type 1, temporal arteritis (on chronic prednisone) who presented with fever, fall, generalized weakness, elevated troponin. - Patient Problems (1) Sepsis Comment: - Met sepsis criteria on admission with fever, leukocytosis, and tachycardia. - Source is likely community acquired pneumonia vs bronchitis. (2) Pneumonia Comment: - Blood cultures showed no growth. - Legionella and pneumococcal Ag are negative. - Continue Ceftriaxone #7 and completed Zithromax. (3) Atrial fibrillation Comment: - New onset this admission. 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 - Cardiology input appreciated - pacer placement today. - Will resume Metoprolol after pacer. - Heparin drip on hold - will resume tomorrow. (4) Demand ischemia Comment: - Progression of CAD vs demand ischemia secondary to sepsis. - Troponin peaked at 5. - Cardiology input appreciated - continue ASA, beta-veronique on hold for now. - Patient not interested in cardiac cath due to risk of worsening renal function /dyalisis. (5) Chronic systolic (congestive) heart failure Comment: - Echo shows EF 30-35% (EF 45% 2016), global hypokinesis, moderate . - Responded well to IV Lasix - now on PO Torsemide. - Arnel wrap LE. (6) Urinary retention Comment: - Angeles was placed at admission due to residual >600 ml. - Angeles removed 03/03/17. (7) Hypothyroidism Comment: - Continue Levothyroxine. - TSH 2.04. (8) Temporal arteritis Comment: - Continue prednisone. (9) DVT prophylaxis Comment: - SQ heparin. (10) Full code status Current Visit: Yes Status: Acute Code(s): Z78.9 - OTHER SPECIFIED HEALTH STATUS SNOMED Code(s): 389436059 Status and Disposition: Inpatient. Continue to monitor in ICU until pacer placed.
[2017-03-07] MEDS ORDERED: Metoprolol Tartrate TAB* 25 MG PO ONE (14:57)
[2017-03-07] MEDS ORDERED: Furosemide IV* 10 MG/ML VIAL (40 MG) IV ONE (14:58)
[2017-03-07] MEDS: cefTRIAXone VIAL(*) 1,000 MG in NS 0.9% 50 ML* 50 ML IVPB SCH (15:14)
[2017-03-07] MEDS: Clindamycin 600 MG IVPREMIX(* 600 MG/50 ML SDV IV SCH ×2 (16:12→22:36)
[2017-03-07] MEDS: CMCS: Melatonin (NF) 3 MG TAB PO PRN (23:12)
[2017-03-08 05:14] LABS: Hematocrit 32 % (42-52); Hemoglobin 10.2 g/dl (14.0-18.0); Mean Corpuscular HGB Conc 32 g/dl (31-36); Mean Corpuscular Hemoglobin 32 pg (27-31); Mean Corpuscular Volume 99 fL (80-94); Mean Platelet Volume 8 um3 (7.4-10.4); Red Cell Distribution Width 15 % (10.5-15); White Blood Count 13.1 10^3/ul (3.5-10.8)
[2017-03-08 05:19] LABS: Add Diff/Slide Review? Slide Review Added; Comments Flag Yes
[2017-03-08 05:25] LABS: BUN/Creatinine Ratio 29.7 (8-20); Calcium 9.3 mg/dL (8.6-10.3); EGFR African American 42.6 (>60); EGFR Non-African American 33.1 (>60); Potassium 4.4 mmol/L (3.5-5.0)
[2017-03-08] MEDS: Heparin VIAL(*) 5000 UNITS/ML VIAL (FIVE THOUSAND) SUBCUT SCH (05:43)
[2017-03-08] MEDS: Nystatin TOP POWDER* 15 GM BTL TOPICAL SCH ×3 (05:44→23:10)
[2017-03-08] MEDS: Levothyroxine TAB* 50 MCG TAB PO SCH (05:45)
[2017-03-08] MEDS: Clindamycin 600 MG IVPREMIX(* 600 MG/50 ML SDV IV SCH ×3 (06:39→23:02)
[2017-03-08] MEDS ORDERED: Torsemide TAB* 20 MG PO ONE (08:00)
--- NOTE | 2017-03-08 08:14 | RAD ---
HISTORY: Status post device implant COMPARISONS: March 07, 2017 VIEWS: 2: Frontal and lateral views of the chest. FINDINGS: CARDIOMEDIASTINAL SILHOUETTE: The cardiac silhouette is enlarged. The cardiomediastinal silhouette is otherwise normal. NINA: The nina are normal. PLEURA: The costophrenic angles are sharp. No pleural abnormalities are noted. There is no appreciable pneumothorax LUNG PARENCHYMA: There is a diffuse reticular pattern. There is confluent alveolar opacification of the left upper lobe ABDOMEN: The upper abdomen is clear. There is no subphrenic gas. BONES AND SOFT TISSUES: No bone or soft tissue abnormalities are noted. OTHER: A left-sided pacemaker is noted. IMPRESSION: 1. LINES AND TUBES ABOVE. 2. CARDIOMEGALY. 3. PULMONARY INTERSTITIAL EDEMA. 4. LEFT UPPER LOBE CONSOLIDATION
[2017-03-08] MEDS: Docusate CAP* 100 MG PO SCH ×2 (08:35→20:53)
[2017-03-08] MEDS: Tamsulosin CAP* 0.4 MG PO SCH (08:35)
[2017-03-08] MEDS: Acetaminophen TAB* 325 MG PO PRN ×2 (08:36→21:11)
[2017-03-08] MEDS: Aspirin EC Low Dose* 81 MG TAB.EC PO SCH (08:36)
[2017-03-08] MEDS: Vitamin THERAPEUTIC TAB PO SCH (08:36)
[2017-03-08] MEDS: Ferrous Sulfate TAB* 325 MG PO SCH ×2 (08:36→20:54)
[2017-03-08] MEDS: Metoprolol Tartrate TAB* 25 MG PO SCH ×2 (08:36→20:55)
[2017-03-08] MEDS: Omeprazole CAP* 20 MG PO SCH (08:36)
[2017-03-08] MEDS: predniSONE TAB* 20 MG PO SCH (08:36)
[2017-03-08] MEDS: Atorvastatin* 20 MG TAB PO SCH (08:37)
--- NOTE | 2017-03-08 10:51 | PN ---
Subjective Date of Service: 03/08/17 - CC: SOB, bradycardia Interval History: Breathing easier overnight, slept well. No incisional pain. Likes the diuretic effect. Medications Active Medications: Acetaminophen (Tylenol Tab*) 650 mg PO Q4H PRN PRN Reason: FEVER/PAIN Last Admin: 03/08/17 08:36 Dose: 650 mg Amiodarone HCl (Cordarone Tab*) 200 mg PO DAILY [facility] Aspirin (Aspirin Ec Low Dose*) 81 mg PO DAILY [facility] Last Admin: 03/08/17 08:36 Dose: 81 mg Atorvastatin Calcium (Lipitor*) 20 mg PO DAILY [facility] Last Admin: 03/08/17 08:37 Dose: 20 mg Docusate Sodium (Colace Cap*) 200 mg PO BID [facility] Last Admin: 03/08/17 08:35 Dose: 200 mg Enoxaparin Sodium (Lovenox(*)) 100 mg SUBCUT DAILY [facility] Ferrous Sulfate (Ferrous Sulfate Tab*) 325 mg PO BID [facility] Last Admin: 03/08/17 08:36 Dose: 325 mg Guaifenesin (Robitussin*) 5 ml PO Q4H PRN PRN Reason: COUGH Last Admin: 03/07/17 13:53 Dose: 5 ml Ceftriaxone Sodium 1,000 mg/ (Sodium Chloride) 50 mls @ 200 mls/hr IVPB Q24H [facility] Last Admin: 03/07/17 15:14 Dose: 200 mls/hr Clindamycin HCl/Dextrose (Cleocin 600 Mg Ivpremix(*) Sdv) 600 mg in 50 mls @ 100 mls/hr IV Q8H [facility] Last Admin: 03/08/17 06:39 Dose: 100 mls/hr Levothyroxine Sodium (Synthroid Tab*) 50 mcg PO DAILY@0600 [facility] Last Admin: 03/08/17 05:45 Dose: 50 mcg Melatonin (Melatonin (Nf)) 3 mg PO BEDTIME PRN PRN Reason: SLEEP Last Admin: 03/07/17 23:12 Dose: 3 mg Metoprolol Tartrate (Lopressor Tab*) 12.5 mg PO Q12HR [facility] Last Admin: 03/08/17 08:36 Dose: 12.5 mg Multivitamins (Theragran Tab*) 1 tab PO DAILY [facility] Last Admin: 03/08/17 08:36 Dose: 1 tab Nystatin (Nystatin Top Powder*) 1 applic TOPICAL Q8HR [facility] Last Admin: 03/08/17 05:44 Dose: Not Given Omeprazole (Prilosec Cap*) 20 mg PO DAILY@0730 [facility] Last Admin: 03/08/17 08:36 Dose: 20 mg Ondansetron HCl (Zofran Inj*) 4 mg IV Q6H PRN PRN Reason: NAUSEA Prednisone (Deltasone Tab*) 40 mg PO DAILY [facility] Last Admin: 03/08/17 08:36 Dose: 40 mg Tamsulosin HCl (Flomax Cap*) 0.4 mg PO DAILY [facility] Last Admin: 03/08/17 08:35 Dose: 0.4 mg Warfarin Sodium (Coumadin Tab(*)) 5 mg PO ONCE@1700 ONE PRN Reason: Protocol Stop: 03/08/17 17:01 Objective Vital Signs: Temp Pulse Resp BP Pulse Ox 98.1 F 68 31 126/71 96 03/08/17 08:00 03/08/17 09:01 03/08/17 09:01 03/08/17 09:01 03/08/17 09:01 Oxygen Devices in Use Now: Nasal Cannula Appearance: overweight elderly male, appears chronically ill but sitting upright in no distress. Eyes: PERRLA Ears/Nose/Mouth/Throat: Clear Oropharnyx, Mucous Membranes Moist Neck: Trachea Midline Respiratory: Symmetrical Chest Expansion and Respiratory Effort - crackles throughout, greater in the bases. Cardiovascular: RRR - no murmers. Abdominal: NL Sounds; No Tenderness; No Distention Extremities: - - 3-4 + edema bilaterally below knees. Skin: No Rash or Ulcers - incision R subclavian fossa, no infection, hematoma, ecchymosis. Neurological: Alert and Oriented x 3 Lines/Tubes/Other Access: Clean, Dry and Intact Peripheral IV Laboratory Results: 03/08/17 04:54 03/08/17 04:54 INR (Anticoag Therapy) 1.23 (0.89-1.11) H 03/05/17 08:20 APTT 67.1 seconds (26.0-36.3) H 03/06/17 20:24 Total Bilirubin 0.90 mg/dL (0.2-1.0) 03/01/17 15:30 AST 76 U/L (13-39) H 03/01/17 15:30 ALT 45 U/L (7-52) 03/01/17 15:30 Alkaline Phosphatase 149 U/L (34-104) H 03/01/17 15:30 CK-MB (CK-2) 12.5 ng/mL (0.6-6.3) H 03/01/17 15:30 B-Natriuretic Peptide 295 pg/mL (-100) H 03/05/17 05:30 Total Protein 6.6 g/dL (6.4-8.9) 03/01/17 15:30 Albumin 3.1 g/dL (3.2-5.2) L 03/01/17 15:30 Globulin 3.5 g/dL (2-4) 03/01/17 15:30 Albumin/Globulin Ratio 0.9 (1-3) L 03/01/17 15:30 TSH 1.16 mcIU/mL (0.34-5.60) 03/06/17 05:20 03/01/17 03/01/17 03/03/17 17:05 20:40 05:20 Troponin I 5.09 H* 4.09 H* 1.10 H* 03/05/17 05:30 Troponin I 0.44 H* Diagnostic Imaging: CXR X 2: A and V leads show good placement, no pneumothorax, consolidation L lower lung noted, CHF persists EKG Data: Monitor: afib, V pacing, improved ventricular ectopy. Pacemaker: Atrial lead imp. 380 Ohms, A waves 3.0 mV, V lead impedance 551 Ohms, R wave sensing 4.4 , pacing threshold 0.5V at 0.4 ms Remains in Afib. Assessment/Plan 81 yo male POD # 1 dual chamber pacemaker implkantation for symptomatic bradycardia. Good pacer function and incision and CXR look good wrt pacer. Also CHF RI and cardiomyopathy with SOB, improving. Points of Discussion: Pacer: Good function. Clindamycin for 5 days total. OK to start coumodin, but increased risk for pocket hematoma with steroids and RI. Wound check next week with me or Dr. Landeros. Afib: OK to resume coumodin and bridging. I initiated amiodarone with aim of cardioversion in the future. No loading due to increased bleeding risk if coumodin potentiation. CM: Likely ischemic and non ischemia. Agree with Toprol as BP tolerates, not a candidate for ACEI/ARB due to RI and aldactone risky as well. -Try to get back to NSR as above. -Ultimately may need a BiV device, need to follow EF post RV apical pacer as out patient. CHF: RI, low EF and high dose steroids contributing. -Decrease steroids when able. -Continue dieresis with loop diuretics. Antigravity for leg edema. CAD: Elevated trops noted, see Dr. Metzger's notes. Medical management for now, metoprolol initiated and on Statin. Consider conversion from Lipator to a statin not potentiated by amiodarone on discharge (Crestor?). VT: Metoprolol and amiodarone and pacer-> improving. ICD not desired by the patient. 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 WBC improving. Rx via hospitalists. High infection risk wrt pacer due to steroids, follow carefully.
[2017-03-08] MEDS: Enoxaparin(*) 100 MG/ML SYR SUBCUT SCH (11:03)
[2017-03-08] MEDS: Amiodarone TAB* 200 MG PO SCH (11:03)
--- NOTE | 2017-03-08 13:13 | PN ---
Subjective Date of Service: 03/08/17 Interval History: HOSPITALIST PROGRESS NOTE Patient seen and examined at bedside. He feels well today. Had a good night of sleep, breathing is comfortable, denies incisional pain. Required 1 assist to get out of bed today. Family History: Unchanged from Admission Social History: Unchanged from Admission Past Medical History: Unchanged from Admission Objective Active Medications: Acetaminophen (Tylenol Tab*) 650 mg PO Q4H PRN PRN Reason: FEVER/PAIN Last Admin: 03/08/17 08:36 Dose: 650 mg Amiodarone HCl (Cordarone Tab*) 200 mg PO DAILY [facility] Last Admin: 03/08/17 11:03 Dose: 200 mg Aspirin (Aspirin Ec Low Dose*) 81 mg PO DAILY [facility] Last Admin: 03/08/17 08:36 Dose: 81 mg Atorvastatin Calcium (Lipitor*) 20 mg PO DAILY [facility] Last Admin: 03/08/17 08:37 Dose: 20 mg Docusate Sodium (Colace Cap*) 200 mg PO BID [facility] Last Admin: 03/08/17 08:35 Dose: 200 mg Enoxaparin Sodium (Lovenox(*)) 100 mg SUBCUT DAILY [facility] Last Admin: 03/08/17 11:03 Dose: 100 mg Ferrous Sulfate (Ferrous Sulfate Tab*) 325 mg PO BID [facility] Last Admin: 03/08/17 08:36 Dose: 325 mg Guaifenesin (Robitussin*) 5 ml PO Q4H PRN PRN Reason: COUGH Last Admin: 03/07/17 13:53 Dose: 5 ml Ceftriaxone Sodium 1,000 mg/ (Sodium Chloride) 50 mls @ 200 mls/hr IVPB Q24H [facility] Last Admin: 03/07/17 15:14 Dose: 200 mls/hr Clindamycin HCl/Dextrose (Cleocin 600 Mg Ivpremix(*) Sdv) 600 mg in 50 mls @ 100 mls/hr IV Q8H [facility] Last Admin: 03/08/17 06:39 Dose: 100 mls/hr Levothyroxine Sodium (Synthroid Tab*) 50 mcg PO DAILY@0600 [facility] Last Admin: 03/08/17 05:45 Dose: 50 mcg Melatonin (Melatonin (Nf)) 3 mg PO BEDTIME PRN PRN Reason: SLEEP Last Admin: 03/07/17 23:12 Dose: 3 mg Metoprolol Tartrate (Lopressor Tab*) 12.5 mg PO Q12HR [facility] Last Admin: 03/08/17 08:36 Dose: 12.5 mg Multivitamins (Theragran Tab*) 1 tab PO DAILY [facility] Last Admin: 03/08/17 08:36 Dose: 1 tab Nystatin (Nystatin Top Powder*) 1 applic TOPICAL Q8HR [facility] Last Admin: 03/08/17 05:44 Dose: Not Given Omeprazole (Prilosec Cap*) 20 mg PO DAILY@0730 [facility] Last Admin: 03/08/17 08:36 Dose: 20 mg Ondansetron HCl (Zofran Inj*) 4 mg IV Q6H PRN PRN Reason: NAUSEA Prednisone (Deltasone Tab*) 40 mg PO DAILY [facility] Last Admin: 03/08/17 08:36 Dose: 40 mg Tamsulosin HCl (Flomax Cap*) 0.4 mg PO DAILY [facility] Last Admin: 03/08/17 08:35 Dose: 0.4 mg Warfarin Sodium (Coumadin Tab(*)) 5 mg PO ONCE@1700 ONE PRN Reason: Protocol Stop: 03/08/17 17:01 Vital Signs 03/08/17 03/08/17 03/08/17 08:00 08:01 08:24 Temperature 98.1 F Pulse Rate 57 62 62 Respiratory 19 25 31 Rate Blood Pressure 156/83 156/83 (mmHg) O2 Sat by Pulse 96 96 96 Oximetry Oxygen Devices in Use Now: None Appearance: Pleasant elderly male sitting up in a chair in [facility]. Eyes: No Scleral Icterus Ears/Nose/Mouth/Throat: Mucous Membranes Moist Neck: Trachea Midline Respiratory: Symmetrical Chest Expansion and Respiratory Effort, - - BS+ bilaterally with bibasilar crackles Cardiovascular: - - Normal S1 and S2, irregularly irregular Abdominal: NL Sounds; No Tenderness; No Distention Extremities: - - Bilateral LE severe edema Neurological: Alert and Oriented x 3, NL Muscle Strength and Tone Lines/Tubes/Other Access: Clean, Dry and Intact Peripheral IV Nutrition: Taking PO's Result Diagrams: 03/08/17 04:54 03/08/17 04:54 Assess/Plan/Problems-Billing Assessment: Mr. Pederson is an 81 yo M with PMH of CAD, PVD, R subclavian stenosis, CKD 4, hypothyroidism, II degree AV block type 1, temporal arteritis (on chronic prednisone) who presented with fever, fall, generalized weakness, elevated troponin. - Patient Problems (1) Sepsis Comment: - Met sepsis criteria on admission with fever, leukocytosis, and tachycardia. - Source is likely community acquired pneumonia - f/u CxR now shows [place] consolidation. - Improved. (2) Pneumonia Comment: - Blood cultures showed no growth. - Legionella and pneumococcal Ag are negative. - D/c Ceftriaxone and Zithromax. Start Ceftin (3 more days). (3) Atrial fibrillation Comment: - New onset this admission. 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 Cardiology recommended 5 days of Clindamycin. - Metoprolol resumed 03/07/17. - Cardiology input appreciated - start Amiodarone, anticoagulation with Lovenox and Warfarin (requires bridging as he had TIAs in the past). (4) Demand ischemia Comment: - Progression of CAD vs demand ischemia secondary to sepsis. - Troponin peaked at 5. - Cardiology input appreciated - continue ASA, beta-veronique. - Patient not interested in cardiac cath due to risk of worsening renal function /dyalisis. (5) Chronic systolic (congestive) heart failure Comment: - Echo shows EF 30-35% (EF 45% 2016), global hypokinesis, moderate . - Responded well to IV Lasix - now on PO Torsemide. - Arnel wrap LE. (6) Hypothyroidism Comment: - Continue Levothyroxine. - TSH 2.04. (7) Temporal arteritis Comment: - Start to taper prednisone down to baseline 9mg/day. (8) DVT prophylaxis Comment: - Lovenox/Warfarin. (9) Physical deconditioning Comment: - PT/OT eval. (10) Full code status Status and Disposition: Inpatient. Transfer to Telemetry.
[2017-03-08] MEDS ORDERED: Torsemide TAB* 100 MG PO SCH (14:00)
[2017-03-08] MEDS ORDERED: Warfarin TAB(*) 5 MG PO ONE (17:00)
[2017-03-08] MEDS: ceFUROXime TAB(*) 250 MG PO SCH (20:52)
--- NOTE | 2017-03-09 02:31 | OP ---
DATE OF OPERATION: 03/07/17 - ROOM #[id number] DATE OF : 33 SURGEON: Lavern Chaidez MD ANESTHESIA: MAC. PRE-OP DIAGNOSES: Symptomatic bradycardia, paroxysmal atrial fibrillation, and second-degree heart block. POST-OP DIAGNOSES: Symptomatic bradycardia, paroxysmal atrial fibrillation, and second-degree heart block. OPERATIVE PROCEDURE: Dual-chamber pacemaker implantation. COMPLICATIONS: None. ESTIMATED BLOOD LOSS: Less than 5 cc. INDICATIONS: See consultation for additional details of indications and discussions with the patient. The indications, risks, and benefits of this procedure were discussed with the patient in the presence of his daughter and he was amenable to proceeding. , These risks included his increased risk of infection because of prednisone and increased risk of an injury due to prednisone use. DESCRIPTION OF PROCEDURE: The left subclavian fossa was prepped and draped in the usual sterile fashion. A time-out procedure was called. Ultrasound was used to look for the vasculature and the patient received 10 cc of radiopaque dye in the left upper extremity outlining the left subclavian and left axillary vein. Following this, the patient received a total of 32 cc of 1% lidocaine throughout the procedure for anesthesia in addition to 4 mg of Versed and 25 mcg of fentanyl. Following local anesthesia, using a 10 blade knife, a 2.5 cm incision was made in the left subclavian fossa and using Bovie and blunt dissection, was extended to the level of the pectoralis muscle. The patient was obese and this was a deep incision. Additional lidocaine was infused in the floor medially and inferiorly, and using blunt dissection, a small pocket was fashioned. Following this, using a modified Seldinger technique and fluoroscopic guidance, the left subclavian vein was cannulated and a guidewire inserted. This was repeated with a second guidewire. Using an introducer technique, the right ventricular lead was guided into the right ventricle. Initial attempts were to guide it into the interventricular septum, but sensing was poor and ultimately, the third attempt was in the RV apex with good pacing and sensing thresholds. Using the second guidewire and another introducer, the right atrial lead was guided into the right atrial appendage and had good back and forth movement and was actively fixed and placed. Sensing was good. We were unable to check pacing threshold as the patient was in atrial fibrillation. Taking great care to ensure good positioning and adequate slack in the leads, the leads were then sutured in place using 0 silk suture. Following this, the pocket was copiously irrigated. The leads were attached to the device. The device was placed in the pocket. Thresholds were rechecked, found to be good and stable and the incision was closed with 2 layers of resorbable suture, 2-0 followed by 4-0 followed by wilfredo and an external dressing. FINDINGS: The system is an MRI compatible system, [employer]. The atrial lead is a Medtronic Model 5076-52 serial #[id number] with P-wave sensed at 3.2 millivolts and then atrial lead impedance of 543 ohms. The ventricular lead is a Med[employer]onic Model 5076-58 serial #[id number] with R- wave sensed at 4.1 millivolts, a ventricular lead impedance of 652 ohms and a ventricular pacing threshold of 0.7 volts in 0.5 milliseconds. The device is a Med[employer]onic Model 82DR01 serial #[id number]. The patient again was hemodynamically stable throughout the procedure and on transfer to the floor. [id number]/[facility] #: [id number] KEV
[2017-03-09 04:44] LABS: Hematocrit 36 % (42-52); Hemoglobin 11.5 g/dl (14.0-18.0); Mean Corpuscular HGB Conc 33 g/dl (31-36); Mean Corpuscular Hemoglobin 32 pg (27-31); Mean Corpuscular Volume 99 fL (80-94); Mean Platelet Volume 8 um3 (7.4-10.4); Red Blood Count 3.58 10^6/ul (4.0-5.4); Red Cell Distribution Width 15 % (10.5-15); White Blood Count 15.9 10^3/ul (3.5-10.8)
[2017-03-09 04:46] LABS: Add Diff/Slide Review? Slide Review Added; Comments Flag Yes
[2017-03-09 04:56] LABS: Calcium 9.8 mg/dL (8.6-10.3); EGFR African American 38.4 (>60); EGFR Non-African American 29.9 (>60)
[2017-03-09 04:59] LABS: Potassium 4.2 mmol/L (3.5-5.0)
[2017-03-09 05:19] LABS: Hypochromasia 1+; Immature Granulocytes 18 % (0-9); Macrocytosis 1+; Metamyelocytes % 5 % (0-2); Microcytosis 1+; Myelocytes % 1 % (0-1); Neutrophil % 78 % (38-83); Polychromasia 1+; Reactive Lymph % 1 % (0-6)
[2017-03-09] MEDS: Levothyroxine TAB* 50 MCG TAB PO SCH (05:31)
[2017-03-09] MEDS: Nystatin TOP POWDER* 15 GM BTL TOPICAL SCH ×3 (05:33→21:50)
[2017-03-09] MEDS: Clindamycin 600 MG IVPREMIX(* 600 MG/50 ML SDV IV SCH ×3 (08:38→22:55)
[2017-03-09] MEDS: Metoprolol Tartrate TAB* 25 MG PO SCH ×3 (08:57→21:52)
[2017-03-09] MEDS: Docusate CAP* 100 MG PO SCH ×2 (08:58→21:52)
[2017-03-09] MEDS: Tamsulosin CAP* 0.4 MG PO SCH (08:58)
[2017-03-09] MEDS: Ferrous Sulfate TAB* 325 MG PO SCH ×2 (08:59→21:52)
[2017-03-09] MEDS ORDERED: predniSONE TAB* 10 MG PO SCH ×2 (09:00→14:57)
[2017-03-09] MEDS: Aspirin EC Low Dose* 81 MG TAB.EC PO SCH (09:00)
[2017-03-09] MEDS: Atorvastatin* 20 MG TAB PO SCH (09:04)
[2017-03-09] MEDS: Vitamin THERAPEUTIC TAB PO SCH (09:04)
[2017-03-09] MEDS: Amiodarone TAB* 200 MG PO SCH (09:05)
[2017-03-09] MEDS: Omeprazole CAP* 20 MG PO SCH (09:05)
[2017-03-09] MEDS: Enoxaparin(*) 100 MG/ML SYR SUBCUT SCH (09:07)
[2017-03-09] MEDS: Torsemide TAB* 20 MG PO SCH (10:33)
[2017-03-09] MEDS ORDERED: Furosemide IV* 10 MG/ML VIAL (40 MG) IV ONE (13:20)
--- NOTE | 2017-03-09 14:32 | PN ---
Subjective Date of Service: 03/09/17 Interval History: HOSPITALIST PROGRESS NOTE Patient seen and examined at bedside. He offers no medical complaints today. His breathing is improved, denies CP or palpitation. Pacer area is sore, 08/09. Family History: Unchanged from Admission Social History: Unchanged from Admission Past Medical History: Unchanged from Admission Objective Active Medications: Acetaminophen (Tylenol Tab*) 650 mg PO Q4H PRN PRN Reason: FEVER/PAIN Last Admin: 03/08/17 21:11 Dose: 650 mg Aspirin (Aspirin Ec Low Dose*) 81 mg PO DAILY [facility] Last Admin: 03/09/17 09:00 Dose: 81 mg Atorvastatin Calcium (Lipitor*) 20 mg PO DAILY [facility] Last Admin: 03/09/17 09:04 Dose: 20 mg Cefuroxime Axetil (Ceftin Tab(*)) 500 mg PO Q24H [facility] Last Admin: 03/08/17 20:52 Dose: 500 mg Docusate Sodium (Colace Cap*) 200 mg PO BID [facility] Last Admin: 03/09/17 08:58 Dose: 200 mg Enoxaparin Sodium (Lovenox(*)) 100 mg SUBCUT DAILY [facility] Last Admin: 03/09/17 09:07 Dose: 100 mg Ferrous Sulfate (Ferrous Sulfate Tab*) 325 mg PO BID [facility] Last Admin: 03/09/17 08:59 Dose: 325 mg Guaifenesin (Robitussin*) 5 ml PO Q4H PRN PRN Reason: COUGH Last Admin: 03/07/17 13:53 Dose: 5 ml Clindamycin HCl/Dextrose (Cleocin 600 Mg Ivpremix(*) Sdv) 600 mg in 50 mls @ 100 mls/hr IV Q8H [facility] Last Admin: 03/09/17 08:38 Dose: 100 mls/hr Levothyroxine Sodium (Synthroid Tab*) 50 mcg PO DAILY@0600 [facility] Last Admin: 03/09/17 05:31 Dose: 50 mcg Melatonin (Melatonin (Nf)) 3 mg PO BEDTIME PRN PRN Reason: SLEEP Last Admin: 03/07/17 23:12 Dose: 3 mg Metoprolol Tartrate (Lopressor Tab*) 25 mg PO BID [facility] Multivitamins (Theragran Tab*) 1 tab PO DAILY [facility] Last Admin: 03/09/17 09:04 Dose: 1 tab Nystatin (Nystatin Top Powder*) 1 applic TOPICAL Q8HR [facility] Last Admin: 03/09/17 05:33 Dose: 1 powder Omeprazole (Prilosec Cap*) 20 mg PO DAILY@0730 [facility] Last Admin: 03/09/17 09:05 Dose: 20 mg Ondansetron HCl (Zofran Inj*) 4 mg IV Q6H PRN PRN Reason: NAUSEA Pharmacy Profile Note (Coumadin Daily Reminder*) 1 note FOLLOW UP 1700 [facility] Prednisone (Deltasone Tab*) 30 mg PO DAILY [facility] Last Admin: 03/09/17 09:01 Dose: 30 mg Tamsulosin HCl (Flomax Cap*) 0.4 mg PO DAILY [facility] Last Admin: 03/09/17 08:58 Dose: 0.4 mg Torsemide (Demadex*) 10 mg PO DAILY [facility] Last Admin: 03/09/17 10:33 Dose: 10 mg Vital Signs 03/09/17 03/09/17 07:35 08:00 Temperature 98.0 F Pulse Rate 60 Respiratory 24 22 Rate Blood Pressure 142/64 (mmHg) O2 Sat by Pulse 98 Oximetry Oxygen Devices in Use Now: None Appearance: Pleasant elderly male sitting up in bed in [facility]. Eyes: No Scleral Icterus Ears/Nose/Mouth/Throat: Mucous Membranes Moist Neck: Trachea Midline Respiratory: Symmetrical Chest Expansion and Respiratory Effort, Clear to Auscultation Cardiovascular: RRR - Normal S1 and S2 Abdominal: NL Sounds; No Tenderness; No Distention Extremities: - - Moderate to severe bilateral LE edema Neurological: Alert and Oriented x 3, NL Muscle Strength and Tone Lines/Tubes/Other Access: Clean, Dry and Intact Peripheral IV Nutrition: Taking PO's Result Diagrams: 03/09/17 04:27 03/09/17 04:27 Assess/Plan/Problems-Billing Assessment: Mr. Pederson is an 81 yo M with PMH of CAD, PVD, R subclavian stenosis, CKD 4, hypothyroidism, II degree AV block type 1, temporal arteritis (on chronic prednisone) who presented with fever, fall, generalized weakness, elevated troponin. - Patient Problems (1) Sepsis Comment: - Met sepsis criteria on admission with fever, leukocytosis, and tachycardia. - Source is likely community acquired pneumonia - f/u CxR now shows CONCEPCIÓN consolidation. - Improved. (2) Leukocytosis Comment: - Patient's WBC is trending up again, with bandemia. - Had no fever, feels well, pacer incision shows no erythema or drainage. - Will request ID input as patient is at very high risk for infection due to his chronic immunosuppression. (3) Pneumonia Comment: - Blood cultures showed no growth. - Legionella and pneumococcal Ag are negative. - Continue Ceftin (2 more days). (4) Atrial fibrillation Comment: - New onset this admission. 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 Cardiology recommended 5 days of Clindamycin. - Metoprolol resumed 03/07/17. - Cardiology input appreciated - recommended Amiodarone, anticoagulation with Lovenox and Warfarin (requires bridging as he had TIAs in the past). (5) Demand ischemia Comment: - Progression of CAD vs demand ischemia secondary to sepsis. - Troponin peaked at 5. - Cardiology input appreciated - continue ASA, beta-veronique. - Patient not interested in cardiac cath due to risk of worsening renal function /dyalisis. (6) Chronic systolic (congestive) heart failure Comment: - Echo shows EF 30-35% (EF 45% 2016), global hypokinesis, moderate . - Responded well to IV Lasix - now on PO Torsemide. - Arnel wrap LE. (7) Hypothyroidism Comment: - Continue Levothyroxine. - TSH 2.04. (8) Temporal arteritis Comment: - Taper prednisone down to baseline 9mg/day. (9) DVT prophylaxis Comment: - Lovenox/Warfarin. (10) Physical deconditioning Comment: - PT/OT eval. (11) Full code status Status and Disposition: Inpatient.
--- NOTE | 2017-03-09 16:37 | ECHO ---
Amended Report Patient: RAMON NGUYEN [facility] Rec#: [id number] : 1935 Date: 03/09/2017 Age: 81y Height: 154.94 cm / 61.0 in Weight: 97.07 kg / 213.9 lbs Sex: M BSA: 1.94 Room#: 439 Admit Date#: 03/01/2017 Type: Inpatient Referring: Pietro Metzger MD Reading: Pietro Metzger MD Wet Roller: [facility] Transthoracic Echocardiogram Indication: Aortic stenosis, s/p pacer. BP: 142/64 HR: 60 Rhythm: Paced Findings History: CAD, PVD, R. subclavian stensosis, CKD IV, 2nd degree AV block type I s/p pacer 03/07/17, hypothyroidism. Technical Comments: The study quality is fair. The study is technically limited due to patient body habitus. Completed at 1615. Left Ventricle: The left ventricular chamber size is normal. Mild to moderate concentric left ventricular hypertrophy is observed. There are multiple regional wall motion abnormalities. more pronounced inferior and posterior hypokinesis. There is mildly decreased left ventricular systolic function. The estimated ejection fraction is 40-45%. There is abnormal ventricular septal wall motion consistent with right ventricular pacemaker. The assessment of diastolic function is non-diagnostic. The basal inferolateral, basal inferoseptal, mid inferolateral, apical septal, apical lateral, and apical inferior wall segments are hypokinetic (score 2). The basal inferior wall segment is akinetic (score 3). Overall wallmotion score index is 1.50 Left Atrium: The left atrium is moderately dilated. Right Ventricle: The right ventricular cavity size is normal. The right ventricular global systolic function is low normal. A pacemaker wire is visualized in the right ventricle. Right Atrium: The right atrium is moderately dilated. A pacemaker wire is visualized in the right atrium. Aortic Valve: Moderate aortic leaflet calcification is visualized. Systolic excursion of the aortic valve cusps is reduced. There is mild aortic regurgitation. There is moderate aortic stenosis.DI .32 c/w moderate, low gradient . The mean gradient of the aortic valve is 17.88 mmHg. The peak instantaneous gradient of the aortic valve is 35.33 mmHg. The aortic valve area, by VTI's, is calculated at 1.1 cm2. Mitral Valve: There is mitral annular calcification. The mitral valve leaflets are mildly thickened. There is mild to moderate mitral regurgitation. There is no evidence of mitral stenosis. Tricuspid Valve: The tricuspid valve leaflets are normal. There is moderate tricuspid regurgitation. The right ventricular systolic pressure is estimated at 44 mmHg. There is evidence of mild to moderate pulmonary hypertension. There is no tricuspid stenosis. Pulmonic Valve: The pulmonic valve appears normal. There is a trace pulmonic regurgitation. There is no pulmonic stenosis. Pericardium: There is no significant pericardial effusion. A pericardial fat pad is visualized. Aorta: There is no dilatation of the ascending aorta. The aortic arch is not well visualized. There is no dilation of the aortic root. Pulmonary Artery: The main pulmonary artery appears normal. Venous: The inferior vena cava appears normal in size. There is a greater than 50% respiratory change in the inferior vena cava dimension. Conclusions The study quality is fair. Mild to moderate concentric left ventricular hypertrophy is observed. There are multiple regional wall motion abnormalities; more pronounced inferior and posterior hypokinesis. There is mildly decreased left ventricular systolic function. The estimated ejection fraction is 40-45%. Abnormal left ventricular diastolic function is observed. The right ventricular global systolic function is low normal. A pacemaker wire is visualized in the right ventricle. There is mild aortic regurgitation. There is moderate aortic stenosis. DI .32 c/w moderate, low gradient . The mean gradient of the aortic valve is 17.88 mmHg. The aortic valve area, by VTI's, is calculated at 1.1 cm2. There is mild to moderate mitral regurgitation. There is moderate tricuspid regurgitation. There is evidence of mild to moderate pulmonary hypertension. Interval improvement in EF from 30-35% on 03.02.17 to 40-45% now. New RV pacemaker as well. Measurements Name Value Normal Range RVIDd (AP) 2D 2.9 cm (0.9 - 2.6) RVDdMajor (2D) 4.4 cm (2.2 - 4.4) RAd ISD 4CH 6 cm (3.4 - 4.9) RA (A4C)W 5 cm (2.9 - 4.6) IVSd (2D) 1.3 cm (0.6 - 1) LVPWd (2D) 1.2 cm (0.6 - 1) LVIDd (2D) 5.3 cm (3.6 - 5.4) LVIDs (2D) 4.7 cm - LV FS (2D) 12 % (25 - 45) Aortic Annulus 2.2 cm (1.4 - 2.6) Ao root diameter (2D) 3 cm (2.1 - 3.5) Ascending Ao 3.3 cm (2.1 - 3.4) LA dimension (AP) 2D 4 cm (2.3 - 3.8) LAd ISD 4CH 6.1 cm (2.9 - 5.3) LA ISD 4CH W 4.6 cm (2.5 - 4.5) Name Value Normal Range LA ESV SP 4CH (A/L) 90 ml - LA ESV SP 2CH (A/L) 90 ml - LA ESV BP (A/L) 93 ml - LA ESV BP (A/L) index 47.58 ml/m2 - LA ESV SP 4CH (MOD) 79 ml - LA ESV SP 2CH (MOD) 81 ml - Name Value Normal Range MV E-wave Vmax 1.07 m/sec - MV deceleration time 130.5 msec - MV A-wave Vmax 0.4 m/sec - MV E:A ratio 2.92 ratio - LV lateral e' Vmax 0.06 m/sec - LV E:e' lateral ratio 17.83 ratio - Name Value Normal Range AV Vmax 3 m/sec - AV VTI 57.5 cm - AV peak gradient 35.33 mmHg - AV mean gradient 17.88 mmHg - LVOT diameter 2.1 cm - LVOT Vmax 0.95 m/sec - LVOT VTI 18.68 cm - LVOT peak gradient 3.61 mmHg - LVOT mean gradient 1.56 mmHg - DOI (VTI) 0.32 ratio - ROSALBA (continuity Vmax) 1.1 cm2 - ROSALBA (continuity VTI) 1.1 cm2 - AR PHT 568 msec - Name Value Normal Range MR PISA radius 0.47 cm - Name Value Normal Range TR Vmax 3.2 m/sec - TR peak gradient 41 mmHg - RAP 3 mmHg - RVSP 44 mmHg - IVC diameter 1.8 cm - Name Value Normal Range PV Vmax 0.81 m/sec - PV peak gradient 2.65 mmHg - Wallmotion BAS Normal BA Normal BAL Normal TACOS Hypokinetic BI Akinetic BIS Hypokinetic MAS Normal MA Normal MAL Normal MIL Hypokinetic KS Normal MIS Normal Hypokinetic AA Normal AL Hypokinetic AI Hypokinetic APEX Hypokinetic
[2017-03-09] MEDS ORDERED: Warfarin TAB(*) 3 MG PO ONE (17:00)
[2017-03-09] MEDS: ceFUROXime TAB(*) 250 MG PO SCH (21:53)
[2017-03-09] MEDS: Acetaminophen TAB* 325 MG PO PRN (22:55)
[2017-03-09] MEDS: CMCS: Melatonin (NF) 3 MG TAB PO PRN (22:55)
--- NOTE | 2017-03-09 23:04 | CONS ---
CONSULTATION REPORT: DATE OF CONSULT: 03/09/17 REQUESTING PHYSICIAN: Dr. Shaffer. CONSULTING SERVICES: Infectious Disease. REASON FOR CONSULTATION: Leukocytosis. IMPRESSION: 1. Admitted with sepsis felt to be due to pneumonia. Initial chest x-ray did not show it. Followup imaging showed a left upper lobe infiltrate. 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 The surgical site looks benign. He has no diarrhea. No suggestion of occult abscess and at this point, I think this is a benign process. 2. Status post pacemaker placement, left chest. 3. Temporal arteritis, on prednisone. 4. Obstructive sleep apnea. 5. Status post bilateral hip arthroplasties, which are asymptomatic. RECOMMENDATION: Agree with not broadening antibiotics and continuing to observe given otherwise clinically improving. I do not think the leukocytosis is significant. We will keep a close eye on the pacemaker site to watch for hematoma or other signs of inflammation. HISTORY OF PRESENT ILLNESS: This is an 81-year-old man admitted 03/01/17 with few days of cough, fever, malaise, and weakness. Chest x-ray was negative at that time. He was started on broad-spectrum antibiotics. Blood cultures were sent. They were negative. Pneumococcal and Legionella antigens were negative. He was noted to have a white blood cell count of 19,000 at that time. It declined to 10,000 on 03/05/17, has made its way back up to 16,000 today. Mostly neutrophils, there are 10% bands. He had fever initially, but that has resolved and the last fever was on 03/03/17. He has not been receiving antipyretics. His cough and dyspnea are improving. He feels like his energy and appetite are also getting better. 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 He had a left chest pacemaker placed, which is tolerated well. He has some soreness in that area with movement. No drainage from the incision that he has noticed. He has had no diarrhea. No abdominal pain. No dysuria. No sinus pain or pressure. His hips are not bothering him. There is no other joint pain. No spine or back pain. PAST MEDICAL HISTORY: 1. Peripheral vascular disease, status post carotid endarterectomy. 2. Hypothyroidism. 3. Hypertension. 4. Temporal arteritis, on prednisone. 5. Obstructive sleep apnea. 6. Osteoarthritis, status post bilateral hip arthroplasty. 7. Hyperlipidemia. 8. TIA x2. 9. Coronary artery disease. 10. Second-degree AV block. 11. Chronic kidney disease. 12. Status post left chest pacemaker placement. 13. Status post appendectomy. 14. Status post partial colectomy. ALLERGIES: METHOTREXATE and CODEINE. MEDICATIONS: 1. Tylenol. 2. Aspirin. 3. Lipitor. 4. Clindamycin 600 mg every 8 hours. 5. Docusate. 6. Enoxaparin. 7. Ferrous sulfate. 8. Levothyroxine. 9. Melatonin. 10. Omeprazole. 11. Tamsulosin. 12. Torsemide. 13. Warfarin. 14. Cefuroxime. 15. Prednisone 20 mg a day. SOCIAL HISTORY: Lives by himself. He has no travel or sick contacts. Past smoker. FAMILY HISTORY: No recurrent infections or tuberculosis. REVIEW OF SYSTEMS: All negative to a full review of systems except as noted above. PHYSICAL EXAM: Vital Signs: Temperature is 36.4, heart rate is 60, respiratory rate 17, blood pressure 130/50, O2 sat 96% on room air. In general , he is awake, not in distress. Neurologic: He is oriented x3, follows all commands. HEENT: There is no conjunctival hemorrhage. Oropharynx: Without lesions. Neck: Supple without nuchal rigidity. Lymph nodes: There is no cervical, supraclavicular, inguinal, axillary, or epitrochlear lymphadenopathy. Heart: Regular rate and rhythm without murmurs, rubs or gallops. Lungs: Clear to auscultation bilaterally. Abdomen: Soft, nontender, nondistended. There are bowel sounds present. Chest: The left chest pacemaker incision is intact. There is mild edema. There is no erythema, fluctuance, or crepitus. No draining fluid. Skin: There are no rashes or splinter hemorrhages. Musculoskeletal: There is no spine tenderness to palpation or joint synovitis. DIAGNOSTIC STUDIES/LAB DATA: White blood cell count 16, hemoglobin 11.5, MCV 99 , platelets 474. Creatinine 2.1. Urinalysis from 03/01/17 is negative. Lyme disease serology from 03/02/17 is negative. Please see impression and recommendations as outlined above which I have discussed with Dr. Shaffer. Thank you for asking me to see Mr. Pederson in consultation. [id number]/[facility] #: [id number] KEV
[2017-03-10] MEDS: Levothyroxine TAB* 50 MCG TAB PO SCH (06:00)
[2017-03-10] MEDS: Nystatin TOP POWDER* 15 GM BTL TOPICAL SCH ×3 (06:00→22:58)
[2017-03-10 06:28] LABS: Hematocrit 34 % (42-52); Hemoglobin 10.9 g/dl (14.0-18.0); Mean Corpuscular HGB Conc 32 g/dl (31-36); Mean Corpuscular Hemoglobin 32 pg (27-31); Mean Corpuscular Volume 99 fL (80-94); Mean Platelet Volume 8 um3 (7.4-10.4); Red Blood Count 3.42 10^6/ul (4.0-5.4); Red Cell Distribution Width 16 % (10.5-15); White Blood Count 15.8 10^3/ul (3.5-10.8)
[2017-03-10 06:30] LABS: Add Diff/Slide Review? Slide Review Added; Comments Flag Yes
[2017-03-10 06:54] LABS: Hypochromasia 1+; Immature Granulocytes 10 % (0-9); Macrocytosis 1+; Metamyelocytes % 5 % (0-2); Microcytosis 1+; Myelocytes % 2 % (0-1); Neutrophil % 80 % (38-83); Polychromasia 1+; Promyelocytes % 1 %
[2017-03-10 07:06] LABS: BUN/Creatinine Ratio 33.5 (8-20); C Reactive Protein 13.99 mg/L (< 5.00); EGFR African American 39.3 (>60); EGFR Non-African American 30.6 (>60); Magnesium 1.8 mg/dL (1.9-2.7)
[2017-03-10] MEDS: Atorvastatin* 20 MG TAB PO SCH (07:41)
[2017-03-10] MEDS: Docusate CAP* 100 MG PO SCH ×2 (07:41→19:40)
[2017-03-10] MEDS: Metoprolol Tartrate TAB* 25 MG PO SCH ×2 (07:42→19:40)
[2017-03-10] MEDS: Aspirin EC Low Dose* 81 MG TAB.EC PO SCH (07:42)
[2017-03-10] MEDS: Omeprazole CAP* 20 MG PO SCH (07:42)
[2017-03-10] MEDS: Ferrous Sulfate TAB* 325 MG PO SCH ×2 (07:42→19:41)
[2017-03-10] MEDS: Tamsulosin CAP* 0.4 MG PO SCH (07:42)
[2017-03-10] MEDS: Vitamin THERAPEUTIC TAB PO SCH (07:42)
[2017-03-10] MEDS: Torsemide TAB* 20 MG PO SCH (07:44)
[2017-03-10 07:47] LABS: Troponin I 0.21 ng/mL (<0.04)
[2017-03-10] MEDS: Clindamycin 600 MG IVPREMIX(* 600 MG/50 ML SDV IV SCH ×3 (07:55→22:58)
[2017-03-10 07:56] LABS: Potassium 4.1 mmol/L (3.5-5.0)
[2017-03-10] MEDS: Enoxaparin(*) 100 MG/ML SYR SUBCUT SCH (08:01)
[2017-03-10 09:07] LABS: Calcium 9.3 mg/dL (8.6-10.3)
[2017-03-10 09:22] LABS: Erythrocyte Sed Rate 92 mm/Hr (0-40)
[2017-03-10] MEDS ORDERED: Magnesium Sulfate 1 GM IV* 1 GM/100 ML BAG IV ONE (11:45)
[2017-03-10] MEDS ORDERED: Potassium Chloride LIQUID* 20 MEQ PACKET PO ONE (13:17)
[2017-03-10] MEDS ORDERED: Furosemide IV* 10 MG/ML VIAL (40 MG) IV ONE (13:17)
--- NOTE | 2017-03-10 15:25 | PN ---
Subjective Date of Service: 03/10/17 Interval History: Pt feels well. Some discomfort in pacer area and swelling noted Family History: Unchanged from Admission Social History: Unchanged from Admission Past Medical History: Unchanged from Admission Objective Active Medications: Acetaminophen (Tylenol Tab*) 650 mg PO Q4H PRN PRN Reason: FEVER/PAIN Last Admin: 03/09/17 22:55 Dose: 650 mg Aspirin (Aspirin Ec Low Dose*) 81 mg PO DAILY [facility] Last Admin: 03/10/17 07:42 Dose: 81 mg Atorvastatin Calcium (Lipitor*) 20 mg PO DAILY [facility] Last Admin: 03/10/17 07:41 Dose: 20 mg Cefuroxime Axetil (Ceftin Tab(*)) 500 mg PO Q24H [facility] Last Admin: 03/09/17 21:53 Dose: 500 mg Docusate Sodium (Colace Cap*) 200 mg PO BID [facility] Last Admin: 03/10/17 07:41 Dose: 200 mg Ferrous Sulfate (Ferrous Sulfate Tab*) 325 mg PO BID [facility] Last Admin: 03/10/17 07:42 Dose: 325 mg Guaifenesin (Robitussin*) 5 ml PO Q4H PRN PRN Reason: COUGH Last Admin: 03/07/17 13:53 Dose: 5 ml Clindamycin HCl/Dextrose (Cleocin 600 Mg Ivpremix(*) Sdv) 600 mg in 50 mls @ 100 mls/hr IV Q8H [facility] Last Admin: 03/10/17 15:04 Dose: 100 mls/hr Levothyroxine Sodium (Synthroid Tab*) 50 mcg PO DAILY@0600 [facility] Last Admin: 03/10/17 06:00 Dose: 50 mcg Melatonin (Melatonin (Nf)) 3 mg PO BEDTIME PRN PRN Reason: SLEEP Last Admin: 03/09/17 22:55 Dose: 3 mg Metoprolol Tartrate (Lopressor Tab*) 25 mg PO BID [facility] Last Admin: 03/10/17 07:42 Dose: 25 mg Multivitamins (Theragran Tab*) 1 tab PO DAILY [facility] Last Admin: 03/10/17 07:42 Dose: 1 tab Nystatin (Nystatin Top Powder*) 1 applic TOPICAL Q8HR [facility] Last Admin: 03/10/17 06:00 Dose: 1 powder Omeprazole (Prilosec Cap*) 20 mg PO DAILY@0730 [facility] Last Admin: 03/10/17 07:42 Dose: 20 mg Ondansetron HCl (Zofran Inj*) 4 mg IV Q6H PRN PRN Reason: NAUSEA Pharmacy Profile Note (Coumadin Daily Reminder*) 1 note FOLLOW UP 1700 [facility] Last Admin: 03/09/17 18:04 Dose: 1 note Prednisone (Deltasone Tab*) 20 mg PO DAILY [facility] Last Admin: 03/10/17 07:41 Dose: 20 mg Tamsulosin HCl (Flomax Cap*) 0.4 mg PO DAILY [facility] Last Admin: 03/10/17 07:42 Dose: 0.4 mg Torsemide (Demadex*) 20 mg PO DAILY [facility] Vital Signs 03/09/17 03/09/17 03/09/17 15:36 19:55 20:00 Temperature 97.6 F 97.6 F Pulse Rate 59 58 Respiratory 17 16 16 Rate Blood Pressure 132/48 128/53 (mmHg) O2 Sat by Pulse 96 97 97 Oximetry 03/09/17 03/10/17 03/10/17 23:57 00:00 03:39 Temperature 97.3 F Pulse Rate 60 59 Respiratory 20 20 Rate Blood Pressure 126/58 134/68 (mmHg) O2 Sat by Pulse 99 97 99 Oximetry 03/10/17 03/10/17 07:58 08:00 Temperature 97.5 F Pulse Rate 59 Respiratory 22 22 Rate Blood Pressure 141/61 (mmHg) O2 Sat by Pulse 98 Oximetry Oxygen Devices in Use Now: None Appearance: 81 yo M in nAd, AAOx3 Eyes: No Scleral Icterus, PERRLA Ears/Nose/Mouth/Throat: NL Teeth, Lips, Gums, Mucous Membranes Moist Neck: NL Appearance and Movements; NL JVP, Trachea Midline Respiratory: Symmetrical Chest Expansion and Respiratory Effort, Clear to Auscultation Cardiovascular: NL Sounds; No Murmurs; No JVD, RRR Abdominal: NL Sounds; No Tenderness; No Distention Lymphatic: No Cervical Adenopathy Extremities: No Clubbing, Cyanosis, - - +2 pitting pedal edema b/l Skin: No Nodules or Sclerosis, - - left subclavian pacer area with a pocket hematoma noted, no dehiscence Neurological: Alert and Oriented x 3, NL Muscle Strength and Tone Result Diagrams: 03/11/17 04:45 03/11/17 04:45 Additional Lab and Data: Lab Results 03/01/17 03/01/17 Range/Units 15:30 15:30 Sodium 134 (133-145) mmol/L Potassium 4.4 (3.5-5.0) mmol/L Chloride 103 (101-111) mmol/L Carbon Dioxide 23 (22-32) mmol/L Anion Gap 8 (2-11) mmol/L BUN 67 H (6-24) mg/dL Creatinine 3.14 H (0.67-1.17) mg/dL Est GFR ( Amer) 24.6 (>60) Est GFR (Non-Af Amer) 19.1 (>60) BUN/Creatinine Ratio 21.3 H (8-20) Glucose 146 H (70-100) mg/dL Lactic Acid 1.2 (0.5-2.0) mmol/L Calcium 9.1 (8.6-10.3) mg/dL Total Bilirubin 0.90 (0.2-1.0) mg/dL AST 76 H (13-39) U/L ALT 45 (7-52) U/L Alkaline Phosphatase 149 H (34-104) U/L Troponin I 4.52 H* (<0.04) ng/mL Total Protein 6.6 (6.4-8.9) g/dL Albumin 3.1 L (3.2-5.2) g/dL Globulin 3.5 (2-4) g/dL Albumin/Globulin Ratio 0.9 L (1-3) Microbiology and Other Data: Microbiology 03/01/17 18:46 Nasal Screen MRSA (PCR)(CHERY[facility]) - Final Nasal Mrsa Negative 03/01/17 17:05 Legionella Urinary Antigen - Final Urine Negative Legionella Streptococcus pneumoniae Ag Screen - Final Negative S. pneumo Antigen Assess/Plan/Problems-Billing Assessment: Mr. Pederson is an 81 yo M with PMH of CAD, PVD, R subclavian stenosis, CKD 4, hypothyroidism, II degree AV block type 1, temporal arteritis (on chronic prednisone) who presented with fever, fall, generalized weakness, elevated troponin. - Patient Problems (1) Leukocytosis Comment: - Patient's WBC was trending up again, with bandemia after paced placement - Had no fever, feels well otherwise -ID imput appreciated, cont Cefuroxime and clinda (2) Sepsis Comment: - waa septic at admission with fever, leukocytosis, and tachycardia. - Source is likely community acquired pneumonia - f/u CxR now shows CONCEPCIÓN consolidation. - Improved. (3) Atrial fibrillation Comment: - New onset this admission. 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 Cardiology recommended 5 days of Clindamycin. - Metoprolol resumed 03/07/17. - Cardiology input appreciated - recommended anticoagulation with Warfarin ( requires bridging as he had TIAs in the past).due to pacer pocket hematoma will stop lovenox as d/w Dr. Metzger (4) CKD (chronic kidney disease) stage 4, GFR 15-29 ml/min Comment: Creat at 2.6-2.8 at baseline Creat improving, ACEI held at admission Lasix held FeNa at 1.9 ( but not reliable, since pt was on Lasix at admisssion) (5) Chronic systolic (congestive) heart failure Comment: - Echo shows EF 30-35% (EF 45% 2016), global hypokinesis, moderate . - Responded well to IV Lasix - now on PO Torsemide (dose doubled by cardiology on 03/10/16) - Arnel wrap LE. (6) Urinary retention Comment: - [place] was placed at admission due to residual >600 ml. - Angeles removed 03/03/17. (7) Subclavian arterial stenosis Comment: on R chronic (8) Temporal arteritis Comment: - Taper prednisone down to baseline 9 mg/day. (9) Demand ischemia Comment: - Progression of CAD vs demand ischemia secondary to sepsis. - Troponin peaked at 5. - Cardiology input appreciated - continue ASA, beta-veronique. - Patient not interested in cardiac cath due to risk of worsening renal function /dyalisis. (10) Hypothyroidism Comment: - Continue Levothyroxine. - TSH 2.04. (11) Bradycardia Comment: S/p pacer placement for tachy xavier syndrome on 03/07/17, suffered from pacer pocket hematoma. (12) Pneumonia Comment: - Blood cultures showed no growth. - Legionella and pneumococcal Ag are negative. - Continue Ceftin (13) DVT prophylaxis Comment: Warfarin. No further DVT ptophylaxis due to pacer pocket hematoma Status and Disposition: Inpatient.
[2017-03-10] MEDS: Acetaminophen TAB* 325 MG PO PRN (19:39)
[2017-03-10] MEDS: ceFUROXime TAB(*) 250 MG PO SCH (19:39)
[2017-03-10] MEDS: CMCS: Melatonin (NF) 3 MG TAB PO PRN (22:57)
[2017-03-11] MEDS: Nystatin TOP POWDER* 15 GM BTL TOPICAL SCH (04:46)
[2017-03-11] MEDS: Levothyroxine TAB* 50 MCG TAB PO SCH (04:47)
[2017-03-11 04:53] LABS: Hematocrit 33 % (42-52); Hemoglobin 10.6 g/dl (14.0-18.0); Mean Corpuscular HGB Conc 32 g/dl (31-36); Mean Corpuscular Hemoglobin 32 pg (27-31); Mean Corpuscular Volume 100 fL (80-94); Mean Platelet Volume 8 um3 (7.4-10.4); Red Blood Count 3.29 10^6/ul (4.0-5.4); Red Cell Distribution Width 16 % (10.5-15); White Blood Count 14.9 10^3/ul (3.5-10.8)
[2017-03-11 04:54] LABS: Add Diff/Slide Review? Slide Review Added; Comments Flag Yes
[2017-03-11 06:37] LABS: BUN/Creatinine Ratio 33.5 (8-20); Calcium 8.7 mg/dL (8.6-10.3); EGFR African American 35.2 (>60); EGFR Non-African American 27.4 (>60); Potassium 4.4 mmol/L (3.5-5.0)
[2017-03-11] MEDS: Clindamycin 600 MG IVPREMIX(* 600 MG/50 ML SDV IV SCH (06:47)
[2017-03-11] MEDS: Omeprazole CAP* 20 MG PO SCH (07:17)
[2017-03-11] MEDS: Vitamin THERAPEUTIC TAB PO SCH (07:17)
[2017-03-11] MEDS: Docusate CAP* 100 MG PO SCH (07:18)
[2017-03-11] MEDS: Aspirin EC Low Dose* 81 MG TAB.EC PO SCH (07:18)
[2017-03-11] MEDS: Atorvastatin* 20 MG TAB PO SCH (07:18)
[2017-03-11] MEDS: Metoprolol Tartrate TAB* 25 MG PO SCH (07:19)
[2017-03-11] MEDS: Ferrous Sulfate TAB* 325 MG PO SCH (07:19)
[2017-03-11] MEDS: Tamsulosin CAP* 0.4 MG PO SCH (07:19)
[2017-03-11] MEDS ORDERED: predniSONE TAB* 10 MG PO SCH (08:30)
[2017-03-11] MEDS ORDERED: Torsemide TAB* 20 MG PO SCH (09:00)
[2017-03-11] MEDS ORDERED: Furosemide IV* 10 MG/ML 2 ML VIAL (20 MG) IV ONE (11:27)
[2017-03-11 13:35] VITALS: BP 112/56
--- NOTE | 2017-03-12 03:37 | DS ---
CC: Dr. Saldana; Dr. Chaidez; Dr. Landeros; Dr. Doan; Dr. Giron; Dr. Metzger; Dr. Wade * DISCHARGE SUMMARY: DATE OF ADMISSION: 03/01/17 DATE OF DISCHARGE: 03/11/17 PRIMARY CARE PROVIDER: Dr. Saldana DISCHARGE DIAGNOSES: 1. Sepsis due to community-acquired pneumonia, with resultant acute respiratory failure and demand ischemia. The patient initially required BiPAP and placement in the intensive care unit. 2. 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 The pacemaker was placed by Dr. Chaidez. The device was [employer], MRI compatible. The serial number is [id number]. The atrial lead was Medtronic, serial number [id number]. The RV lead was Medtronic, serial number [id number]. The serial number of the device was [id number]. It was implanted on 03/07/17. 3. The patient suffered from subsequent small pacemaker pocket hematoma. 4. The patient was diagnosed with demand ischemia with troponin of max at 5 during the hospital stay. 5. He also developed fever and leukocytosis 2 days after pacemaker placement and was seen by Dr. Doan of Infectious Diseases. 6. An episode of urinary retention at admission, resolved after [place] was discontinued on 03/03/17. SECONDARY DIAGNOSES: 1. History of hypothyroidism. 2. Hypertension. 3. History of temporal arteritis, on chronic prednisone. 4. Chronic kidney disease stage 4. 5. History of chronic systolic CHF. 6. Obstructive sleep apnea. 7. Arthritis. 8. Hyperlipidemia. 9. History of TIAs in the past. 10. Coronary artery disease. 11. History of second-degree AV block. 12. Peripheral vascular disease. 13. History of chronic right subclavian stenosis. 14. History of carotid endarterectomy. MEDICATIONS AT DISCHARGE: Include: 1. Clindamycin 300 mg p.o. 3 times a day for a total of 10 days. 2. Coumadin 5 mg daily. The patient's INR on the day of discharge was 1.48 after couple of days on Coumadin treatment during the hospital stay. Next INR needs to be checked in 2 days. 3. Levothyroxine 50 mcg daily. 4. Metoprolol tartrate 25 mg b.i.d. 5. Multivitamin 1 tablet daily. 6. [place]-3 fatty acid 2000 mg daily. 7. Prilosec 20 mg daily. 8. Ferrex 150 mg b.i.d. 9. Zocor 40 mg daily. 10. Flomax 0.4 mg daily. 11. Demadex 20 mg daily. 12. Prednisone 9 mg daily as previously taken. DISCHARGE INSTRUCTIONS/FOLLOWUP: At discharge, the patient is recommended to follow up with Dr. Saldana on 03/15/17, at 10:10 a.m. Next INR to be checked by visiting nurse association on 03/13/17, with report to be sent to Dr. Landeros and Dr. Saldana. Post pacemaker specific instructions were prepared by Cardiology and given to the patient by Cardiology. The patient is also recommended to follow up with Dr. Landeros for pacemaker check in approximately 1 week after discharge. The patient is set up with visiting nurse association at discharge. Ambulation is with a rolling walker. The patient's weight at discharge is 209 pounds and he is advised to check his weight on a daily basis and to report to his primary care doctor if his weight increases over 3 pounds. LABORATORY DATA AND STUDIES PERFORMED DURING THE HOSPITAL STAY: Included: INR on the day of discharge is 1.49. On 03/11/17, white blood cell count of 14.9, hemoglobin of 10.6, hematocrit of 33, MCV of 100, platelets of 436. Sodium of 135, potassium 4.4, chloride 101, carbon dioxide 26, BUN 77, and creatinine 2.3. Troponin peaked at 5.09 on 03/01/17. C-reactive protein the day prior to discharge was 13.9. The patient's TSH was checked on 03/06/17 and was 1.16. Folate was above 20 on 03/06/17. Vitamin B12 on 03/06/17 was 836. Lyme disease serology was negative. Transthoracic echocardiogram on 03/09/17 showed hhea-uw-[id number] concentric LVH with EF of 40% to 45%. Abnormal left ventricular diastolic dysfunction was observed. Pacemaker wire was visualized in the right ventricle. There was mild aortic regurgitation and moderate aortic stenosis. The mean gradient of the aortic valve was 17.88 mmHg and the aortic valve area calculated was 1.1 cm squared. There was offz-ot-whznpyas mitral regurgitation and moderate tricuspid regurgitation and evidence of bmno-nn-arxykkkl pulmonary hypertension. There was interval improvement of EF from 30% to 35% on 03/02/17 to 40% to 45% now. Microbiology studies showed Legionella and Strep pneumo antigens in urine were negative. Blood cultures obtained on admission were unremarkable and negative. Portable chest x-ray last obtained on 03/08/17, impression: "Lines and tubes as above. Cardiomegaly. Pulmonary residual edema. Left upper lobe consolidation." CONSULTATIONS DURING THE HOSPITAL STAY: Included 1. Dr. Metzger, Dr. Landeros, Dr. Chaidez, and Dr. Wade from Cardiology. 2. Dr. Doan, Infectious Diseases. PROCEDURES DURING THE HOSPITAL DAY: Included pacemaker placement by Dr. Chaidez on 03/07/17. HOSPITALIZATION COURSE: Wilber Pederson is an 81-year-old male with history of chronic kidney disease stage 4, congestive heart failure, who presented to the hospital in respiratory distress. The patient was placed on BiPAP and treated in the intensive care unit. Overnight, he improved dramatically from his respiratory standpoint and the BiPAP was taken off. Nevertheless, he continued to have atrial fibrillation and was diagnosed with tachy-xavier syndrome, which was also new for him during this hospital stay. He was treated initially with amiodarone and seen by Cardiology in consultation. Eventually, on 03/07/17, Dr. Chaidez placed a pacemaker. On 03/09/17, the amiodarone was stopped by Dr. Metzger. The patient was noted to have chronic CHF systolic and was diuresed throughout his hospital stay, originally with intravenous furosemide. He was switched from p.o. furosemide to p.o. torsemide at discharge, and the dose was increased to [address] Metzger on the day prior to discharge. Initially, the patient was bridged with Lovenox to Coumadin after pacemaker placement for anticoagulation due to his history of TIAs. Unfortunately, it had to be stopped when the patient developed pacemaker pocket hematoma post placement. At this point, the patient is going to be discharged on Coumadin and his INR needs to be checked in a couple of days. The patient was treated with antibiotics for community-acquired pneumonia throughout his hospital stay and approximately 2 days post pacemaker placement, developed bandemia and worsening leukocytosis. At that point, Dr. Doan saw the patient in consultation. So far his workup had been negative, but clindamycin was added to his medications with good results. The patient's leukocytosis and bandemia symptoms are resolving by the time of discharge. At discharge, per discussion with Dr. Doan, the patient is going to be placed on 10 days' worth of clindamycin. Please also note that the patient is immunosuppressed, on chronic prednisone due to temporal arteritis. At discharge, the patient continues to have +2 bilateral pitting pedal edema, which is chronic. His chronic kidney disease is at his baseline at discharge. 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 He is recommended also to follow up with Dr. Giron as previously scheduled. PHYSICAL EXAMINATION: At the time of discharge, blood pressure of 103/55, heart rate of 60 and regular, respiratory rate 16, oxygen saturation 97% on room air, temperature 97.6. General: The patient is a very pleasant 81-year- old male, who is not in acute distress. Alert, awake, and oriented x3. HEENT: Head: Atraumatic, normocephalic. Eyes: Pupils are equal, round, and reactive to light and accommodation. Oropharynx clear. Mucosa moist. Neck: Supple. No JVD. No bruits bilaterally. Cardiovascular: Regular rate and rhythm. No murmur. Respiratory: Clear to auscultation bilaterally. Abdomen: Soft, nontender. Bowel sounds present in all 4 quadrants. Extremities: There is +2 pitting pedal edema. Pulses are +2 bilaterally. There is no clubbing or cyanosis. Neuro Evaluation: Speech is clear. Cranial nerves II through XII grossly intact. Motor strength is 5/5 bilaterally. Please note that this is a very short summary of the patient's long and complicated hospitalization. Please refer to further medical records for details. TIME SPENT: Approximately 45 minutes were spent on preparation and discharging the patient. [id number]/[facility] #: [id number] K[facility]IDA HEALTHTorie
== END 2017-03-11 16:00 | disposition home health service (06) | DRG 871 ==
LOC: ED 14:01 → ICU 16:49 → MEDTELE 03-08 15:01
PROVIDERS: ADMIT Hospitalist; ATTEND Internal Medicine
PROC: 0T9B70Z Drainage of Bladder with Drainage Device, Via Natural or Artificial Opening (ICD-10-PCS; 2017-03-01)
PROC: 0TPBX0Z Removal of Drainage Device from Bladder, External Approach (ICD-10-PCS; 2017-03-04)
PROC: 02HK3JZ Insertion of Pacemaker Lead into Right Ventricle, Percutaneous Approach (ICD-10-PCS; 2017-03-07)
PROC: 02H63JZ Insertion of Pacemaker Lead into Right Atrium, Percutaneous Approach (ICD-10-PCS; 2017-03-07)
PROC: 0JH606Z Insertion of Pacemaker, Dual Chamber into Chest Subcutaneous Tissue and Fascia, Open Approach (ICD-10-PCS; principal; 2017-03-07 07:45)
DX: A41.9 Sepsis, unspecified organism (principal); J18.9 Pneumonia, unspecified organism; J96.00 Acute respiratory failure, unspecified whether with hypoxia or hypercapnia; N18.4 Chronic kidney disease, stage 4 (severe); I13.0 Hypertensive heart and chronic kidney disease with heart failure and stage 1 through stage 4 chronic kidney disease, or unspecified chronic kidney disease; I24.8 Other forms of acute ischemic heart disease; N17.9 Acute kidney failure, unspecified; I44.1 Atrioventricular block, second degree; I50.22 Chronic systolic (congestive) heart failure; I27.2 Other secondary pulmonary hypertension; I97.638 Postprocedural hematoma of a circulatory system organ or structure following other circulatory system procedure; L76.32 Postprocedural hematoma of skin and subcutaneous tissue following other procedure; I49.5 Sick sinus syndrome; I25.10 Atherosclerotic heart disease of native coronary artery without angina pectoris; E78.00 Pure hypercholesterolemia, unspecified; K21.9 Gastro-esophageal reflux disease without esophagitis; N40.0 Benign prostatic hyperplasia without lower urinary tract symptoms; M81.0 Age-related osteoporosis without current pathological fracture; Z96.643 Presence of artificial hip joint, bilateral; R40.2412 Glasgow coma scale score 13-15, at arrival to emergency department; E03.9 Hypothyroidism, unspecified; G47.33 Obstructive sleep apnea (adult) (pediatric); E78.5 Hyperlipidemia, unspecified; I73.9 Peripheral vascular disease, unspecified; I08.3 Combined rheumatic disorders of mitral, aortic and tricuspid valves; R60.9 Edema, unspecified; Z96.652 Presence of left artificial knee joint; E66.9 Obesity, unspecified; Z68.39 Body mass index [BMI] 39.0-39.9, adult; I25.5 Ischemic cardiomyopathy; Y83.2 Surgical operation with anastomosis, bypass or graft as the cause of abnormal reaction of the patient, or of later complication, without mention of misadventure at the time of the procedure; D72.825 Bandemia; Y71.3 Surgical instruments, materials and cardiovascular devices (including sutures) associated with adverse incidents; Y92.239 Unspecified place in hospital as the place of occurrence of the external cause; I48.0 Paroxysmal atrial fibrillation; M31.6 Other giant cell arteritis; R33.9 Retention of urine, unspecified; Z79.01 Long term (current) use of anticoagulants; Z79.52 Long term (current) use of systemic steroids; Z88.8 Allergy status to other drugs, medicaments and biological substances; Z88.6 Allergy status to analgesic agent; Z87.891 Personal history of nicotine dependence; Z98.42 Cataract extraction status, left eye; Z98.41 Cataract extraction status, right eye; Z82.3 Family history of stroke; Z86.73 Personal history of transient ischemic attack (TIA), and cerebral infarction without residual deficits; Z83.3 Family history of diabetes mellitus
CPT/HCPCS: 33208; 36415; 71010; 71020; 80048; 80053; 81003; 81015; 82550; 82553; 82570; 82607; 82746; 83540; 83550; 83605; 83735; 83880; 84300; 84443; 84484; 84520; 85025; 85610; 85652; 85730; 86140; 86141; 86618; 87040; 87641; 87899; 93005; 93306; 93308; 94660; 94760; 96374; 96375; 99156; 99157; 99285; A9270-GY; C1785; C1898; J0456; J0461; J0696; J1644; J1650; J1720; J1940; J2001; J2250; J2310; J3010; J3475; J7512; Q9967

== ENCOUNTER 2017-06-24 13:19 | Inpatient (IN) | payer MEDICARE ==
[2017-06-24] MEDS ORDERED: Aspirin Low Dose CHEW TAB* 81 MG PO ONE (13:45)
[2017-06-24 14:26] LABS: Hematocrit 35 % (42-52); Hemoglobin 11.5 g/dl (14.0-18.0); Mean Corpuscular HGB Conc 33 g/dl (31-36); Mean Corpuscular Hemoglobin 29 pg (27-31); Mean Corpuscular Volume 90 fL (80-94); Mean Platelet Volume 8 um3 (7.4-10.4); Red Blood Count 3.92 10^6/ul (4.0-5.4); Red Cell Distribution Width 19 % (10.5-15); White Blood Count 10.3 10^3/ul (3.5-10.8)
--- NOTE | 2017-06-24 14:27 | RAD ---
INDICATION: Chest pain. COMPARISON: Comparison is made with prior chest x-ray studies from March 08, 2017 and May 10, 2017. TECHNIQUE: A portable view of the chest was obtained. FINDINGS: The heart is moderately enlarged. There is a dual-chamber transvenous pacemaker present. There is diffuse prominence of interstitial markings and patchy bilateral interstitial infiltrates. There appear to be trace bilateral pleural effusions. IMPRESSION: FINDINGS MOST CONSISTENT WITH CONGESTIVE HEART FAILURE OR PNEUMONIA.
[2017-06-24 14:43] LABS: Albumin 3.3 g/dL (3.2-5.2); Calcium 8.5 mg/dL (8.6-10.3); EGFR African American 5.4 (>60); EGFR Non-African American 4.2 (>60); Globulin 2.9 g/dL (2-4); Total Protein 6.2 g/dL (6.4-8.9)
[2017-06-24 14:57] LABS: Troponin I 0.29 ng/mL (<0.04)
[2017-06-24 15:01] LABS: BUN/Creatinine Ratio 13.5 (8-20)
[2017-06-24] MEDS ORDERED: Heparin VIAL(*) 5000 UNITS/ML VIAL (FIVE THOUSAND) IV SCH (16:00)
--- NOTE | 2017-06-24 16:58 | RAD ---
INDICATION: Acute renal failure. COMPARISON: Comparison is made with a prior CT of the abdomen and pelvis from July 10, 2009. TECHNIQUE: A CT scan of the abdomen and pelvis was performed without intravenous or oral contrast. Contiguous axial sections were obtained from the lung bases through the symphysis pubis. Images were reconstructed in the coronal and sagittal planes. FINDINGS: There are small to moderate-sized bilateral pleural effusions and dependent bilateral lower lobe infiltrates. The liver and spleen are normal in size without significant focal abnormality. There is increased density in the dependent portion of the gallbladder suspicious for gallstones. There is fatty infiltration of the pancreas which otherwise appears unremarkable. The adrenal glands appear to be within normal limits. There are multiple bilateral renal cysts. There is a small hyperdense cyst measuring 0.7 cm in size in the midportion of the left kidney most consistent with a hemorrhagic cyst. No renal calculi are seen. There is no evidence for hydronephrosis. The urinary bladder is obscured due to artifact from total bilateral hip replacement surgeries. The aorta is normal in caliber with moderate to severe calcific plaque present. No significant enlarged retroperitoneal lymph nodes are seen. The stomach, small and large bowel appear nondistended. The patient is status post appendectomy by history. There are scattered diverticuli throughout the colon which are neub-wz-qalsgpfz in degree. There is no evidence for diverticulitis or colitis. No free intraperitoneal air is seen. There is a small amount of free intraperitoneal fluid within the paracolic gutters and pelvis. There is diffuse edema within the subcutaneous tissues within the abdomen and pelvis and visualized portion of the proximal thighs. The patient is status post total bilateral hip replacement surgery. No significant focal osseous abnormality is seen. IMPRESSION: 1. [id number] SIZED BILATERAL PLEURAL EFFUSIONS AND DEPENDENT BILATERAL LOWER LOBE INFILTRATES. 2. SMALL AMOUNT OF ASCITES. 3. DIFFUSE BODY WALL EDEMA SUGGESTIVE OF ANASARCA. 4. CHOLELITHIASIS.
[2017-06-24] MEDS ORDERED: Cefepime(*) 2 GM in NS 0.9% 50 ML* 50 ML IVPB ONE (17:10)
[2017-06-24] MEDS ORDERED: Ciprofloxacin 400MG IVPREMIX(* 400 MG/200 ML BAG IVPB ONE (17:10)
[2017-06-24] MEDS: Morphine INJ* 2 MG/ML 1 ML SYRINGE (TWO MG - NEW SYRINGE VERSION) IV PRN ×2 (17:57→20:44)
[2017-06-24] MEDS ORDERED: Acetaminophen TAB* 325 MG PO PRN (17:58)
[2017-06-24] MEDS ORDERED: Ondansetron INJ* 2 MG/ML VIAL IV ONE (18:03)
--- NOTE | 2017-06-24 19:45 | HP ---
CC: Dr. Saldana * [facility] MEDICINE HISTORY AND PHYSICAL: DATE OF ADMISSION: 06/24/17 PRIMARY CARE PHYSICIAN: Dr. Saldana. ATTENDING PHYSICIAN: Lulu Shaffer MD * (dictation provided by Alea Griffin NP ). CHIEF COMPLAINT: Chest pain. HISTORY OF PRESENT ILLNESS: Mr. Pederson is an 81-year-old male with a past medical history of chronic kidney disease stage 5, hypothyroidism, hypertension , AFib with pacemaker, and CHF who presents today to the hospital with concern for chest pain. Mr. Pederson states he has been doing very poorly over the recent weeks. 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 Giron, regarding the need for possible dialysis. After long consultation with the patient, the family, and Dr. Giron, the plan was made for the patient to forego dialysis in favor of a comfort care approach as his illness worsens. He has been living at home with support from his grandson and his girlfriend. He has become significantly edematous and is having more difficulty ambulating. Today, he had 10/10 chest pain in the middle of the night and therefore, ultimately came to the emergency room for evaluation. In the emergency room, Mr. Pederson had a creatinine of 11.68 and a BUN of 158. His troponin is elevated at 0.29. His BNP is 1345. His INR is 5.55. There was concern that perhaps he had an urinary obstruction and therefore, he went for a CT of abdomen and pelvis which showed uccdq-au-phuplkgn sized bilateral pleural effusions and bilateral lower lobe infiltrates with small amount of ascites and diffuse body wall edema suggestive of anasarca. The situation was reviewed with Mr. Pederson and his family, and the patient is opting for comfort care. PAST MEDICAL HISTORY: 1. CKD stage 5. 2. Hypothyroidism. 3. Hypertension. 4. Atrial fibrillation with pacemaker. 5. Gout. 6. Congestive heart failure. MEDICATIONS: 1. Atorvastatin 20 mg p.o. daily. 2. Furosemide 40 mg p.o. daily. 3. Metolazone 2.5 mg as directed. 4. Metoprolol tartrate 25 mg p.o. b.i.d. 5. Multivitamin with mineral 1 tab p.o. daily. 6. [place]-3 fatty acid 2000 mg p.o. daily. 7. Polysaccharide with iron complex 1 cap p.o. b.i.d. 8. Tamsulosin 0.4 mg p.o. daily. 9. Torsemide 20 mg p.o. daily. 10. Warfarin 2.5 mg as directed. 11. Allopurinol 200 mg p.o. daily. 12. Amlodipine 2.5 mg p.o. daily. 13. Levothyroxine 50 mcg p.o. daily. 14. Omeprazole 20 mg p.o. daily. 15. Prednisone 10 mg p.o. daily. ALLERGIES: METHOTREXATE and CODEINE. FAMILY HISTORY: His mother had diabetes. Father had a stroke. SOCIAL HISTORY: The patient was a former smoker and quit in 1992. There is no prior alcohol or illicit drug use. His surrogate decision maker is his daughter , Ashley. REVIEW OF SYSTEMS: A 14-point review of systems was completed with Mr. Pederson and all those not mentioned above were negative. PHYSICAL EXAMINATION GENERAL: Mr. Pederson is lying in the bed. He is in no acute distress. His family is at the bedside. VITAL SIGNS: Temperature 97.0, pulse rate 64, respiratory rate 13, O2 saturation 97% on 2 L nasal cannula, blood pressure 101/50. LUNGS: Diminished bilaterally. HEART: S1, S2. Holosystolic murmur at the sternal border. ABDOMEN: Soft and nontender. Bowel sounds are positive. EXTREMITIES: Positive for 3+ pitting edema. NEURO: He is alert, he is oriented x3. He moves all extremities equally. There is no facial asymmetry or focal weakness. Extraocular movements are intact. SKIN: The patient has multiple ecchymoses in bilateral upper and lower extremities. DIAGNOSTIC STUDIES/LAB DATA: WBC 10.3, hemoglobin 11.5, hematocrit 35, platelet count 243,000. INR 5.55. Sodium 131, potassium 5.0, chloride 84, serum bicarbonate 27, BUN 158, creatinine 11.68, glucose 135. Troponin 0.29. BNP is 1345. Chest x-ray shows the following: "Findings most consistent with congestive heart failure or pneumonia." Abdomen and pelvis CT shows the following: "Xupvg-pt-uzowjroa sized bilateral pleural effusions and dependent bilateral lower lobe infiltrates, small amount of ascites, diffuse body wall edema suggestive of anasarca, and cholelithiasis. ASSESSMENT: Mr. Pederson is an 81-year-old male with past medical history of chronic kidney disease stage 5, who presented to the hospital today with renal failure. He has previously met with Dr. Giron and his family and opted to forego dialysis in favor of comfort care. Our plans are for inpatient admission as I expect his length of stay to be greater than 2 days for the followin. Comfort care: The patient has chest pain that is about 3/10 at this point, which he states is not very uncomfortable. He will have morphine available p.r.n. Plan to continue his home prednisone, but otherwise hold the remainder of his medications. Hospice will be consulted. 2. Code status is DNR/DNI. A MOLST form has been completed. TIME SPENT: Approximately 60 minutes was spent in admission of this patient, more than half of the time was spent with the patient and the family at the bedside reviewing the events leading up to this hospitalization, performing the physical examination, and reviewing the plan of care. ALEA GRIFFIN NP [id number]/[facility] #: [id number] KEV
--- NOTE | 2017-06-24 19:59 | ED ---
Fede Aparicio Gabriel, scribed for Crow Kahn MD on 06/24/17 at 1353 . Complex/Multi-Sys Presentation - HPI Summary HPI Summary: This patient is a 81 year old M BIBA to [facility] accompanied by family with a chief complaint of bilateral lung pain and neck pain on inspiration. He states he doesnt know when the pain began. The patient rates the pain 8/10 in severity. Patient reports pain and edema in LE, dizziness, and light headedness. Patient denies SOB, recent falls, back pain, and double vision. - History Of Current Complaint Chief Complaint: EDChestPainROMI Time Seen by Provider: 06/24/17 13:43 Hx Obtained From: Patient Onset/Duration: Still Present Timing: Constant Associated Signs And Symptoms: Positive: Edema - and pain in LE, Other - bilateral lung pain and neck on inspiration, dizziness, light headedness. Negative: SOB, Back Pain - Allergies/Home Medications Allergies/Adverse Reactions: Allergies Allergy/AdvReac Type Severity Reaction Status Date / Time Methotrexate AdvReac Intermediate Pneumonia Verified 08/06/13 13:10 Like Symptoms Codeine AdvReac Unknown Itching Verified 08/06/13 13:10 Home Medications: Home Medications Amlodipine Besylate [Norvasc 2.5 mg tab] 2.5 mg PO DAILY 06/24/17 [History Confirmed 06/24/17] Atorvastatin* [Lipitor*] 20 mg PO 2100 06/24/17 [History Confirmed 06/24/17] Furosemide TAB* [Lasix TAB*] 40 mg PO DAILY 06/24/17 [History Confirmed 06/24/17 ] Metolazone 2.5 mg PO SEE INSTRUCTIONS 06/24/17 [History Confirmed 06/24/17] Polysaccharide Iron Complex [Ferrex 150] 1 cap PO BID 06/24/17 [History Confirmed 06/24/17] Warfarin Sodium 2.5 mg PO SEE INSTRUCTIONS 06/24/17 [History Confirmed 06/24/17] PMH/Surg Hx/FS Hx/Imm Hx Previously Healthy: No Endocrine/Hematology History: Reports: Hx Anticoagulant Therapy, Hx Thyroid Disease Cardiovascular History: Reports: Hx Congestive Heart Failure, Hx Coronary Artery Disease, Hx Hypercholesterolemia, Hx Hypertension, Hx Pacemaker/ICD - FEBRUARY 2017, Other Cardiovascular Problems/Disorders - temporal arteritis Respiratory History: Reports: Hx Sleep Apnea - Uses CPAP at home, pt's CPAP machine at [facility] History: Reports: Hx Gastroesophageal Reflux Disease, Other GI Disorders - bowel resection, appendectomy History: Reports: Hx Benign Prostatic Hyperplasia Musculoskeletal History: Reports: Hx Arthritis - osteo, Hx Osteoporosis, Other Musculoskeletal History - bilateral hip replacement Sensory History: Reports: Hx Cataracts, Hx Contacts or Glasses, Hx Vision Problem Denies: Hx Hearing Aid Opthamlomology History: Reports: Hx Cataracts, Hx Contacts or Glasses, Hx Vision Problem Neurological History: Reports: Hx Transient Ischemic Attacks (TIA) Comment Only: Other Neuro Impairments/Disorders - vision loss left eye S/P TIA - Cancer History Cancer Type, Location and Year: Skin Cancer Hx Chemotherapy: No Hx Radiation Therapy: No Hx Palliative Cancer Treatment: No - Surgical History Surgery Procedure, Year, and Place: 06/1998 [facility]- (right) cataract. 03/2000 [facility] - (left) cataract. (left) knee surgery. 07/2003 partial bowel resection. appendectomy. bilateral carotid endarterectomy. 12/2008 (left) hip arthroplasty. 11/2009 (right) hip ORIF & replacement Hx Anesthesia Reactions: No Infectious Disease History: No Infectious Disease History: Denies: Hx Clostridium Difficile, Hx Hepatitis, Hx Human Immunodeficiency Virus (HIV), Hx of Known/Suspected MRSA, Hx Shingles, Hx Tuberculosis, Traveled Outside the in Last 30 Days - Social History Alcohol Use: None Substance Use Type: Reports: None Smoking Status (MU): Former Smoker Type: Cigarettes Length of Time of Smoking/Using Tobacco: 47 years Have You Smoked in the Last Year: No Review of Systems Constitutional: Negative - recent trauma Negative: Fever, Chills Eyes: Negative - double vision Negative: Erythema Negative: Sore Throat Negative: Chest Pain Positive: Other - bilateral lung pain on inspiration . Negative: Shortness Of Breath, Cough Negative: Abdominal Pain, Vomiting, Nausea Negative: dysuria, hematuria Musculoskeletal: Negative - back pain Positive: Edema - bilaterally in LE , Other - pain in LE and neck . Negative: Myalgia Negative: Rash Neurological: Other - dizziness and light headedness All Other Systems Reviewed And Are Negative: Yes Physical Exam - Summary Physical Exam Summary: Constitutional: Well-developed, Well-nourished, Alert. (-) Distressed Skin: Warm, Dry HENT: Normocephalic; Atraumatic Eyes: Conjunctiva normal Neck: Musculoskeletal ROM normal neck. (-) JVD, (-) Stridor, (-) Tracheal deviation Cardio: Rhythm regular, rate normal, Heart sounds normal; Intact distal pulses; The pedal pulses are 2+ and symmetric. Radial pulses are 2+ and symmetric. (-) Murmur Pulmonary/Chest wall: Effort normal. (-) Respiratory distress, (-) Wheezes, Rales in the bases Abd: Soft, (-) Tenderness, (-) Distension, (-) Guarding, (-) Rebound Musculoskeletal: 3+ pitting edema in bi lateral LE Lymph: (-) Cervical adenopathy Neuro: Alert, Oriented x3 Psych: Mood and affect Normal Triage Information Reviewed: Yes Vital Signs On Initial Exam: Initial Vitals BP 105/59 06/24/17 13:36 Vital Signs Reviewed: Yes - [place] Coma Scale Coma Scale Total: 15 Diagnostics - Vital Signs Vital Signs Temp Pulse Resp BP Pulse Ox 06/24/17 13:47 96 06/24/17 13:43 97.0 F 63 17 105/59 96 06/24/17 13:38 12 06/24/17 13:36 105/59 - Laboratory Lab Results: Lab Results 06/24/17 06/24/17 06/24/17 Range/Units 14:12 14:12 14:12 WBC 10.3 (3.5-10.8) 10^3/ul RBC 3.92 L (4.0-5.4) 10^6/ul Hgb 11.5 L (14.0-18.0) g/dl Hct 35 L (42-52) % MCV 90 (80-94) fL MCH 29 (27-31) pg MCHC 33 (31-36) g/dl RDW 19 H (10.5-15) % Plt Count 243 (150-450) 10^3/ul MPV 8 (7.4-10.4) um3 Neut % (Auto) 92.3 H (38-83) % Lymph % (Auto) 3.5 L (25-47) % [place] % (Auto) 3.5 (1-9) % Eos % (Auto) 0.2 (0-6) % Baso % (Auto) 0.5 (0-2) % Absolute Neuts (auto) 9.5 H (1.5-7.7) 10^3/ul Absolute Lymphs (auto) 0.4 L (1.0-4.8) 10^3/ul Absolute Monos (auto) 0.4 (0-0.8) 10^3/ul Absolute Eos (auto) 0 (0-0.6) 10^3/ul Absolute Basos (auto) 0.1 (0-0.2) 10^3/ul Absolute Nucleated RBC 0.02 10^3/ul Nucleated RBC % 0.2 INR (Anticoag Therapy) (0.89-1.11) APTT (26.0-36.3) seconds D-Dimer, Quantitative (Less Than 230) ng/mL Sodium 131 L (133-145) mmol/L Potassium 5.0 (3.5-5.0) mmol/L Chloride 84 L (101-111) mmol/L Carbon Dioxide 27 (22-32) mmol/L Anion Gap 20 H (2-11) mmol/L BUN 158 H (6-24) mg/dL Creatinine 11.68 H (0.67-1.17) mg/dL Est GFR ( Amer) 5.4 (>60) Est GFR (Non-Af Amer) 4.2 (>60) BUN/Creatinine Ratio 13.5 (8-20) Glucose 135 H (70-100) mg/dL Lactic Acid 0.8 (0.5-2.0) mmol/L Calcium 8.5 L (8.6-10.3) mg/dL Total Bilirubin 1.00 (0.2-1.0) mg/dL AST 18 (13-39) U/L ALT 13 (7-52) U/L Alkaline Phosphatase 102 (34-104) U/L Troponin I 0.29 H* (<0.04) ng/mL B-Natriuretic Peptide ( - 100) pg/mL Total Protein 6.2 L (6.4-8.9) g/dL Albumin 3.3 (3.2-5.2) g/dL Globulin 2.9 (2-4) g/dL Albumin/Globulin Ratio 1.1 (1-3) 06/24/17 06/24/17 06/24/17 Range/Units 14:12 14:12 16:43 WBC (3.5-10.8) 10^3/ul RBC (4.0-5.4) 10^6/ul Hgb (14.0-18.0) g/dl Hct (42-52) % MCV (80-94) fL MCH (27-31) pg MCHC (31-36) g/dl RDW (10.5-15) % Plt Count (150-450) 10^3/ul MPV (7.4-10.4) um3 Neut % (Auto) (38-83) % Lymph % (Auto) (25-47) % [place] % (Auto) (1-9) % Eos % (Auto) (0-6) % Baso % (Auto) (0-2) % Absolute Neuts (auto) (1.5-7.7) 10^3/ul Absolute Lymphs (auto) (1.0-4.8) 10^3/ul Absolute Monos (auto) (0-0.8) 10^3/ul Absolute Eos (auto) (0-0.6) 10^3/ul Absolute Basos (auto) (0-0.2) 10^3/ul Absolute Nucleated RBC 10^3/ul Nucleated RBC % INR (Anticoag Therapy) 5.55 H* (0.89-1.11) APTT 43.0 H (26.0-36.3) seconds D-Dimer, Quantitative < 200 (Less Than 230) ng/mL Sodium (133-145) mmol/L Potassium (3.5-5.0) mmol/L Chloride (101-111) mmol/L Carbon Dioxide (22-32) mmol/L Anion Gap (2-11) mmol/L BUN (6-24) mg/dL Creatinine (0.67-1.17) mg/dL Est GFR ( Amer) (>60) Est GFR (Non-Af Amer) (>60) BUN/Creatinine Ratio (8-20) Glucose (70-100) mg/dL Lactic Acid (0.5-2.0) mmol/L Calcium (8.6-10.3) mg/dL Total Bilirubin (0.2-1.0) mg/dL AST (13-39) U/L ALT (7-52) U/L Alkaline Phosphatase (34-104) U/L Troponin I 0.28 H* (<0.04) ng/mL B-Natriuretic Peptide 1345 H ( - 100) pg/mL Total Protein (6.4-8.9) g/dL Albumin (3.2-5.2) g/dL Globulin (2-4) g/dL Albumin/Globulin Ratio (1-3) Result Diagrams: 06/24/17 14:12 06/24/17 14:12 Lab Statement: Any lab studies that have been ordered have been reviewed, and results considered in the medical decision making process. - EKG 14:00 Cardiac Rate: NL EKG Rhythm: Sinus Rhythm - 60 BPM EKG Interpretation: Paced Re-Evaluation - Re-Evaluation Second Eval Re-Evaluation Time: 17:09 Change: Unchanged - Asked the patient and his family about the aortic dissection from his last visit. They all believe this to be an error and claim he has no history of any aortic pathology. No aortic pathology is suspected at this time. First Eval Re-Evaluation Time: 15:33 Change: Improved - Patient still has 3/10 discomfort, 110 diastolic, he last urinated this morning, and denies any back pain at this time. Complex Multi-Symp Course/Dx - Diagnoses Provider Diagnoses: End stage renal disease, Elevated troponin, Pleuritic chest pain - Physician Notifications Discussed Care Of Patient With: Lulu Bowles Time Discussed With Above Provider: 16:09 Instructed by Provider To: Other - I discussed patient care with Dr. Bowles, hospitalist. She agreed to admit the patient and suggested contacting urology. Discharge - Discharge Plan Condition: Fair Disposition: ADMITTED TO [facility] Consult Consult: 16:19: Discussed patient care with Dr. Newman, urology. He suggested a non- contrast CT to exam the patients bladder and ureters. He also said if there was a blockage he recommends a suprapubic catheter. 17:13: Discussed patient care with Dr. Giron, nephrology. He says that the symptoms may be due to end stage renal failure and that there is possibly serositis present. He recommends oral steroids for this. 17:27 Discussed patient care with Dr. Newman, urology, He says there are no signs of obstruction. The documentation as recorded by the Fede raines Gabriel accurately reflects the service I personally performed and the decisions made by me, Crow Kahn MD.
[2017-06-24] MEDS: Metoprolol Tartrate TAB* 25 MG PO SCH (20:43)
[2017-06-24] MEDS: Ondansetron INJ* 2 MG/ML VIAL IV PRN (20:44)
[2017-06-25] MEDS: Morphine INJ* 2 MG/ML 1 ML SYRINGE (TWO MG - NEW SYRINGE VERSION) IV PRN ×5 (01:13→20:22)
[2017-06-25] MEDS: Ondansetron INJ* 2 MG/ML VIAL IV PRN (04:53)
[2017-06-25] MEDS ORDERED: Saline NASAL SPRAY 0.65%* BTL BOTH NARES PRN (05:56)
[2017-06-25] MEDS ORDERED: Levothyroxine TAB* 50 MCG TAB PO SCH (06:00)
[2017-06-25] MEDS: predniSONE TAB* 5 MG PO SCH ×2 (07:16→07:20)
[2017-06-25] MEDS: Omeprazole CAP* 20 MG PO SCH ×2 (07:16→07:20)
[2017-06-25] MEDS: Metoprolol Tartrate TAB* 25 MG PO SCH ×2 (07:20→20:26)
[2017-06-25] MEDS ORDERED: amLODIPine TAB* 5 MG PO SCH (09:00)
[2017-06-25] MEDS ORDERED: Allopurinol TAB* 100 MG PO SCH (09:00)
--- NOTE | 2017-06-25 17:53 | PN ---
Subjective Date of Service: 06/25/17 Interval History: Patient has pain in both legs. He is confused, not sure about day/night. He does remember that I'm his PCP. Admitted yesterday w/ progressive renal failure. Had decided against dialysis and for hospice. Family History: Unchanged from Admission Social History: Unchanged from Admission Past Medical History: Unchanged from Admission Objective Active Medications: Acetaminophen (Tylenol Tab*) 650 mg PO Q6H PRN PRN Reason: PAIN Metoprolol Tartrate (Lopressor Tab*) 25 mg PO BID [facility] Last Admin: 06/25/17 07:20 Dose: Not Given Morphine Sulfate (Morphine Inj (Syringe)*) 2 mg IV Q2H PRN PRN Reason: PAIN Last Admin: 06/25/17 07:16 Dose: 2 mg Omeprazole (Prilosec Cap*) 20 mg PO DAILY@0730 [facility] Last Admin: 06/25/17 07:20 Dose: Not Given Ondansetron HCl (Zofran Inj*) 4 mg IV Q6H PRN PRN Reason: NAUSEA Last Admin: 06/25/17 04:53 Dose: 4 mg Prednisone (Deltasone Tab*) 10 mg PO DAILY [facility] Last Admin: 06/25/17 07:20 Dose: Not Given Sodium Chloride (Sodium Chloride 0.65% Nasal [place]*) 1 spray BOTH NARES Q1H PRN PRN Reason: DISCOMFORT Last Admin: 06/25/17 06:59 Dose: 1 spray Vital Signs 06/25/17 06/25/17 06/25/17 07:19 07:23 07:24 Temperature 36.2 C Pulse Rate 59 Respiratory 18 18 20 Rate Blood Pressure 105/60 (mmHg) O2 Sat by Pulse 96 Oximetry Oxygen Devices in Use Now: Nasal Cannula Appearance: sleeping, arouses to voice Neck: No Thyroid Enlargement, Masses Respiratory: - - rales at bases bilat Cardiovascular: RRR Extremities: - - 1+ pitting edema bilat LE Lines/Tubes/Other Access: Clean, Dry and Intact Peripheral IV Result Diagrams: 06/24/17 14:12 06/24/17 14:12 Assess/Plan/Problems-Billing Assessment: 81 year old man with CKD, now progressed to ESRD, on comfort care - Patient Problems (1) CKD (chronic kidney disease) stage 5, GFR less than 15 ml/min Current Visit: Yes Status: Acute Priority: High Code(s): N18.5 - CHRONIC KIDNEY DISEASE, STAGE 5 SNOMED Code(s): 270838531 Comment: -Plan is for comfort care, morphine, ativan as needed. -Patient and family comfortable w/ decision -discussed case with Dr. Giron, he wonders about obstructive component, but patient declines further attempts at bladder catheterization Status and Disposition: to home or inpatient hospice when arranged.
[2017-06-25] MEDS: LORazepam INJ* 2 MG/ML 1 ML VIAL IV PRN (22:17)
--- NOTE | 2017-06-26 00:04 | PN ---
PROGRESS NOTE: DATE OF SERVICE: 06/25/17 HISTORY: Mr. Pederson is a gentleman well known to me from outpatient management of his chronic renal insufficiency. He has elected a conservative hospice- based approach to end-stage renal disease. He presented with pleuritic-like chest pain, which would be typical of end-stage uremia. However, he has not voided for a few days and there were 2 attempts at placing a [place] catheter, both of which have failed. Interestingly enough at the present time, he does not complain of abdominal fullness nor the urge to void. He has had some retching. His chest pain has resolved since he has been placed on steroids and morphine. I had a discussion with him in the presence of his family today about the issue of his creatinine rising much more rapidly than I would have anticipated at this stage of renal failure. While the creatinine does go up exponentially, this has been a more rapid change than I would have anticipated and I think there probably is a significant component of urinary obstruction. I raised the question of a reattempt at placing a [place] catheter even by one of the urologists, and he would like to avoid that discomfort and would be willing to just be treated with morphine even though it would mean his demise would come very very quickly. His family is comfortable with that decision and I do not think it is unreasonable. IMPRESSION: End-stage renal disease, now terminal. I will discuss the case with Dr. Saldana. [id number]/[facility] #: [id number] KEV
[2017-06-26] MEDS: LORazepam INJ* 2 MG/ML 1 ML VIAL IV PRN ×2 (05:50→15:11)
[2017-06-26] MEDS: Omeprazole CAP* 20 MG PO SCH (08:21)
[2017-06-26] MEDS: Morphine INJ* 2 MG/ML 1 ML SYRINGE (TWO MG - NEW SYRINGE VERSION) IV PRN ×2 (10:42→14:22)
[2017-06-26] MEDS: predniSONE TAB* 5 MG PO SCH (10:43)
[2017-06-26] MEDS: Metoprolol Tartrate TAB* 25 MG PO SCH ×2 (10:43→22:32)
[2017-06-26 10:57] VITALS: BP 128/48
--- NOTE | 2017-06-26 17:26 | PN ---
Subjective Date of Service: 06/26/17 Interval History: Patient seen and examined at bedside. Denies fever, chills, shortness of breath , chest discomfort, N/V/D. NSG staff not a tremor in the left UE, Pt states this is new. Family History: Unchanged from Admission Social History: Unchanged from Admission Past Medical History: Unchanged from Admission Objective Active Medications: Acetaminophen (Tylenol Tab*) 650 mg PO Q6H PRN Reason: PAIN Lorazepam (Ativan Inj*) 0.5 mg IV Q4H PRN Reason: ANXIETY Metoprolol Tartrate (Lopressor Tab*) 25 mg PO BID [facility] Morphine Sulfate (Morphine Inj (Syringe)*) 2 mg IV Q2H PRN Reason: PAIN Omeprazole (Prilosec Cap*) 20 mg PO DAILY@0730 [facility] Ondansetron HCl (Zofran Inj*) 4 mg IV Q6H PRN Reason: NAUSEA Prednisone (Deltasone Tab*) 10 mg PO DAILY [facility] Sodium Chloride (Sodium Chloride 0.65% Nasal [place]*) 1 spray BOTH NARES Q1H PRN Reason: DISCOMFORT Vital Signs 06/26/17 06/26/17 06/26/17 10:42 10:48 14:22 Temperature 98.2 F Pulse Rate 61 Respiratory 19 20 16 Rate Blood Pressure 128/48 (mmHg) O2 Sat by Pulse 92 Oximetry Oxygen Devices in Use Now: Nasal Cannula - 3.5L Appearance: NAD, laying in bed Respiratory: Symmetrical Chest Expansion and Respiratory Effort, Clear to Auscultation Cardiovascular: RRR Abdominal: NL Sounds; No Tenderness; No Distention Extremities: - - 1-2+ bilateral LE edema Skin: No Rash or Ulcers Neurological: Alert and Oriented x 3, NL Muscle Strength and Tone, - Lines/Tubes/Other Access: Clean, Dry and Intact Peripheral IV - site benign Nutrition: Taking PO's Result Diagrams: 06/24/17 14:12 06/24/17 14:12 Additional Lab and Data: Assess/Plan/Problems-Billing Assessment: Mr. Pederson is an 81 year old man with hypothyroidism, HTN, afib, GOUT, CHF, CKD stage 5, now progressed to ESRD, on comfort care. - Patient Problems (1) Comfort measures only status Code(s): Z51.5 - ENCOUNTER FOR PALLIATIVE CARE SNOMED Code(s): 84433698808510 (2) CKD (chronic kidney disease) stage 5, GFR less than 15 ml/min Code(s): N18.5 - CHRONIC KIDNEY DISEASE, STAGE 5 SNOMED Code(s): 850706194 Comment: - Plan is for comfort care, morphine, ativan as needed. - Patient and family comfortable w/ decision - Discussed case with Dr. Giron, he wonders about obstructive component, but patient declines further attempts at bladder catheterization (3) Atrial fibrillation Code(s): I48.91 - UNSPECIFIED ATRIAL FIBRILLATION SNOMED Code(s): 68286351 Comment: - Rate controlled - Continue Metoprolol - Warfarin held on admission d/t supratherapeutic INR on admission (4) Chronic systolic (congestive) heart failure Code(s): I50.22 - CHRONIC SYSTOLIC (CONGESTIVE) HEART FAILURE SNOMED Code(s): 257015861 Comment: - Echo 02/2017 shows EF 30-35% (EF 45% 2015), global hypokinesis, moderate . (5) DVT prophylaxis Code(s): NRO1877 - SNOMED Code(s): 754146523 Comment: - Comfort care (6) DNR (do not resuscitate) Status and Disposition: Inpatient. Plan for possible inpatient hospice.
[2017-06-27] MEDS: Metoprolol Tartrate TAB* 25 MG PO SCH ×2 (07:30→20:06)
[2017-06-27] MEDS: predniSONE TAB* 5 MG PO SCH (07:30)
[2017-06-27] MEDS: Omeprazole CAP* 20 MG PO SCH (07:30)
[2017-06-27] MEDS: Morphine INJ* 2 MG/ML 1 ML SYRINGE (TWO MG - NEW SYRINGE VERSION) IV PRN ×2 (08:50→11:14)
--- NOTE | 2017-06-27 09:20 | PN ---
Subjective Date of Service: 06/27/17 Interval History: Patient seen and examined at bedside. Pt wakes to voice and will answer some questions slowly. Denies fever, chills, N/V/D. Pt states that he doesn't want to answer any questions about how he is doing or how his breathing is. He states that his pain is controlled at this time. Family is at bedside. Offered Pt to get labs drawn this AM to check renal function and he states he doesn't want to answer the question. Family History: Unchanged from Admission Social History: Unchanged from Admission Past Medical History: Unchanged from Admission Objective Active Medications: Acetaminophen (Tylenol Tab*) 650 mg PO Q6H PRN Reason: PAIN Lorazepam (Ativan Inj*) 0.5 mg IV Q4H PRN Reason: ANXIETY Metoprolol Tartrate (Lopressor Tab*) 25 mg PO BID [facility] Morphine Sulfate (Morphine Inj (Syringe)*) 2 mg IV Q2H PRN Reason: PAIN Omeprazole (Prilosec Cap*) 20 mg PO DAILY@0730 [facility] Ondansetron HCl (Zofran Inj*) 4 mg IV Q6H PRN Reason: NAUSEA Prednisone (Deltasone Tab*) 10 mg PO DAILY [facility] Sodium Chloride (Sodium Chloride 0.65% Nasal [place]*) 1 spray BOTH NARES Q1H PRN Reason: DISCOMFORT Vital Signs 06/26/17 06/26/17 06/26/17 10:42 10:48 14:22 Temperature 98.2 F Pulse Rate 61 Respiratory 19 20 16 Rate Blood Pressure 128/48 (mmHg) O2 Sat by Pulse 92 Oximetry 06/26/17 06/26/17 06/26/17 15:11 16:16 21:49 Temperature Pulse Rate Respiratory 16 19 20 Rate Blood Pressure (mmHg) O2 Sat by Pulse Oximetry 06/27/17 06/27/17 00:36 08:50 Temperature Pulse Rate Respiratory 20 14 Rate Blood Pressure (mmHg) O2 Sat by Pulse Oximetry Oxygen Devices in Use Now: Nasal Cannula - 3.5L Appearance: NAD, laying in bed Respiratory: Symmetrical Chest Expansion and Respiratory Effort, Clear to Auscultation Cardiovascular: NL Sounds; No Murmurs; No JVD, RRR Abdominal: NL Sounds; No Tenderness; No Distention Extremities: - - 1-2+ Bilateral LE Skin: - - Ecchymosis to bilateral arms Neurological: Alert and Oriented x 3, NL Muscle Strength and Tone Lines/Tubes/Other Access: Clean, Dry and Intact Peripheral IV - site benign Nutrition: Taking PO's Result Diagrams: 06/24/17 14:12 06/24/17 14:12 Additional Lab and Data: Assess/Plan/Problems-Billing Assessment: Mr. Pederson is an 81 year old man with hypothyroidism, HTN, afib, GOUT, CHF, CKD stage 5, now progressed to ESRD, on comfort care. - Patient Problems (1) Comfort measures only status Code(s): Z51.5 - ENCOUNTER FOR PALLIATIVE CARE SNOMED Code(s): 78012687123470 Comment: - Will change to PO morphine and ativan (2) CKD (chronic kidney disease) stage 5, GFR less than 15 ml/min Code(s): N18.5 - CHRONIC KIDNEY DISEASE, STAGE 5 SNOMED Code(s): 863847198 Comment: - Plan is for comfort care, morphine, ativan as needed. - Patient and family comfortable w/ decision - Discussed case with Dr. Giron, he wonders about obstructive component, but patient declines further attempts at bladder catheterization (3) Atrial fibrillation Code(s): I48.91 - UNSPECIFIED ATRIAL FIBRILLATION SNOMED Code(s): 50688537 Comment: - Rate controlled - Continue Metoprolol - Warfarin held on admission d/t supratherapeutic INR on admission (4) Chronic systolic (congestive) heart failure Code(s): I50.22 - CHRONIC SYSTOLIC (CONGESTIVE) HEART FAILURE SNOMED Code(s): 478006893 Comment: - Echo 02/2017 shows EF 30-35% (EF 45% 2015), global hypokinesis, moderate . (5) DVT prophylaxis Code(s): BWE2725 - SNOMED Code(s): 354222171 Comment: - Comfort care (6) DNR (do not resuscitate) Status and Disposition: Inpatient. Plan for possible inpatient hospice vs Hospice residence.
[2017-06-27] MEDS ORDERED: LORazepam TAB(*) 1 MG PO PRN ×2 (14:05→21:56)
[2017-06-27] MEDS: Morphine ORAL CONCENTRATE* 5 MG/0.25 ML ORAL.SYRIN SL PRN ×2 (16:07→20:10)
--- NOTE | 2017-06-28 00:19 | PN ---
Progress Note - Progress Note Date of Service: 06/28/17 Note: Paged that patient had at 23:25. Comfort measures only patient. Family at the bedside. Son and DIL present. Family felt he was comfortable and were worried about him transporting him to the residence in AM. No heart sounds or spontaneous respirations - time of : 23:25 Please see d/c summary and remained records for more details.
--- NOTE | 2017-06-28 12:07 | DS ---
CC: Dr. Lti Saldana; Dr. Tin Giron SUMMARY: DATE OF ADMISSION: 06/24/17 DATE OF EXPIRATION: 06/27/17 at 2325. PRIMARY CARE PHYSICIAN: Dr. Lit Saldana. RESIDENT MEDICAL OFFICER: Dr. Tin Giron. HOSPITAL COURSE: In summary, the patient is an 81-year-old male with a past medical history of CKD s tage 5, who presented to the emergency room with chest pain, found to have worsening renal failure. The patient had been seen in consultation with Dr. Giron prior to this admission and the decision wa s made to forego dialysis and do a comfort measures approach. On admission, the patient was admitted for comfort measures. Palliative care was consulted. He was placed on morphine and Ativan as neede d and his remaining symptomatic medications. The plan was for him to go to the hospice residence on the ; however, the patient comfortably with the family at the bedside on 06/27/17. PRINCIPAL DIAGNOSIS/CAUSE OF : End-stage renal disease. SECONDARY DIAGNOSES: Congestive heart failure and hypertension. Please refer to remaining medical records for further details into his hospitalization. [id number]/[facility] #: [id number]
== END 2017-06-27 23:25 | disposition expired | DRG 291 ==
LOC: ED 13:19 → MED 17:47
PROVIDERS: ADMIT Internal Medicine; ATTEND Pediatrics
DX: I13.2 Hypertensive heart and chronic kidney disease with heart failure and with stage 5 chronic kidney disease, or end stage renal disease (principal); N18.6 End stage renal disease; I48.91 Unspecified atrial fibrillation; I50.22 Chronic systolic (congestive) heart failure; Z66 Do not resuscitate; E03.9 Hypothyroidism, unspecified; Z95.0 Presence of cardiac pacemaker; R07.9 Chest pain, unspecified; M10.9 Gout, unspecified; Z79.01 Long term (current) use of anticoagulants; Z79.52 Long term (current) use of systemic steroids; Z79.899 Other long term (current) drug therapy; Z88.5 Allergy status to narcotic agent; Z88.8 Allergy status to other drugs, medicaments and biological substances; Z83.3 Family history of diabetes mellitus; Z82.3 Family history of stroke; Z87.891 Personal history of nicotine dependence; Z51.5 Encounter for palliative care
CPT/HCPCS: 36415; 71010; 74176; 80053; 83605; 83880; 84484; 85025; 85379; 85610; 85730; 93005; A9270-GY; J0692; J0744; J1644; J2060; J2270; J2405; J7512